=== PATIENT | female | born 1960 | race Caucasian/White ===

== ENCOUNTER 2016-08-09 17:38 | Inpatient (IN) ==
--- NOTE | 2016-08-09 18:28 | Emergency Department Note ---
Disposition Clinical Impression: Anxiety, Suicidal ideation Schizoaffective disorder Qualifiers: Schizoaffective disorder type: bipolar Qualified Code(s): F25.0 - Schizoaffective disorder, bipolar type Disposition: Admitted As Inpatient Condition: Good Time of Disposition: 04:11 Psych HPI - General Chief Complaint: ED Psychiatric Symptoms Stated Complaint: Psych/Hearing voices/SI Time Seen by Provider: 08/09/16 18:19 Source: patient Nursing Notes Reviewed: Yes Vital Signs Reviewed: Yes - History of Present Illness HPI Narrative: 56-year-old female diabetic former smoker with known schizoaffective disorder c /o suicidal ideation. She describes describes the past 3 weeks she has had auditory and visual hallucinations with voices telling her to stab herself. She also describes visual hallucinations visualizing "shadows" of "mean people" . She tells me normally she does not hear any voices. She mentions she has had these before and that resulted in her doctor adjusting her medications. She mentions her mom has been sick which has also worsened her depression and anxiety. She states she has been compliant with her medications, and that she does see a counselor and psychiatrist however her next appointment is not for a few weeks. She denies any issues at her [facility] and tells me she enjoys it there, especially the outings to [place] and other places. Pt also mentions having a cough and itchy throat for the past 3 weeks, but denies shortness of breath fever or night sweats chills. She is accompanied by caregiver, who admits that the patient's cold is improving. Patient denies chest pain, shortness of breath, fever, night sweats, abdominal pain, excessive swelling. Pt complaint: suicidal ideation If medical clearance, reason: psychiatric condition Onset (ago): week(s) (3) Duration: getting worse History of similar episodes: Yes Improves with: none Worsens with: none Context: significant life stressor (mother is ill) Alleged intoxication: No Associated Psychiatric Symptoms: depression, auditory hallucinations, visual hallucinations, anxiety Associated symptoms: Reports: denies other symptoms Traumatic symptoms: denies traumatic injury Self harm or harm to others: denies thoughts of harming self/others - Related Data Home Medications Medication Instructions Recorded Confirmed Aspirin 81 mg PO DAILY 08/09/16 08/09/16 Atorvastatin Calcium 80 mg PO DAILY 08/09/16 08/09/16 ClonazePAM [Klonopin] 1 mg PO HS 08/09/16 08/09/16 Docusate [Colace] 100 mg PO BID 08/09/16 08/09/16 Furosemide [Lasix] 40 mg PO BID 08/09/16 08/09/16 Levothyroxine Sodium [Levoxyl] 175 mg PO DAILY 08/09/16 08/09/16 Losartan Potassium [Cozaar] 50 mg PO DAILY 08/09/16 08/09/16 Meclizine HCl [Verticalm] 25 mg PO Q8H PRN 08/09/16 08/09/16 Metoprolol [Lopressor] 50 mg PO BID 08/09/16 08/09/16 Niacin [Niacor] 500 mg PO BID 08/09/16 08/09/16 Nitroglycerin [Nitrostat] 0.4 mg PO Q5M PRN 08/09/16 08/09/16 Oxcarbazepine 600 mg PO DAILY 08/09/16 08/09/16 Paroxetine [Paxil] 30 mg PO DAILY 08/09/16 08/09/16 QVAR 80 mcg 80 mcg PO 1-2XD 08/09/16 08/09/16 Previous Rx's Medication Instructions Recorded Amantadine [Symmetrel] 100 mg PO DAILY #30 capsule 08/15/16 Paliperidone [Invega] 6 mg PO DAILY [id number] 08/15/16 Ziprasidone [Geodon] 20 mg PO HS 30 Days 08/15/16 Allergies Allergy/AdvReac Type Severity Reaction Status Date / Time clemastine [From Tavist] AdvReac Unknown Verified 06/11/16 21:23 milk AdvReac Unknown Verified 06/11/16 21:23 pseudoephedrine [From Tavist] AdvReac Unknown Verified 06/11/16 21:23 All systems ED: reviewed and negative except as stated. Constitutional: Denies: fever, chills, weakness Eyes: Denies: eye pain ENT ED: Denies: ear pain Cardiovascular: Denies: chest pain, palpitations, dyspnea on exertion Respiratory: Reports: cough. Denies: dyspnea, wheezes Gastrointestinal: Denies: abdominal pain, nausea, vomiting Genitourinary: Denies: dysuria Musculoskeletal: Denies: back pain Psychiatric: Reports: suicidal thoughts, auditory hallucinations, visual hallucinations. Denies: homicidal thoughts Past Medical History - Past Medical History Medical history: Reports: asthma, COPD, diabetes, hyperlipidemia, hypertension, other Surgical history: Reports: , cholecystectomy, other Psychiatric history: Reports: bipolar, schizophrenia - Social History Smoking Status: Former smoker Smokeless Tobacco Status: No Alcohol use: Reports: none Drug use: Reports: none Physical Exam - General Limitations: no limitations General appearance: alert - Head Head exam: normocephalic - Eye Eye exam: Present: EOMI - ENT ENT exam: normal exam, normal oropharynx, mucous membranes moist - Neck Neck exam: Present: full ROM. Absent: tenderness - Chest Chest inspection: Present: normal inspection, symmetric chest wall rise - Respiratory Respiratory exam: Present: normal lung sounds bilaterally. Absent: respiratory distress, wheezes - Cardiovascular Cardiovascular exam: Present: regular rate, normal rhythm - Abdominal Exam Abdominal exam: Present: soft, Non-Tender - Extremities Exam Extremities exam: Present: normal inspection, full ROM, normal capillary refill - Back Exam Back exam: Present: normal inspection - Neurological Exam Neurological exam: Present: alert, oriented X3 - Psychiatric Psychiatric exam: Present: normal affect, normal mood, suicidal ideation. Absent: anxious, flat affect, homicidal ideation - Skin Skin exam: Present: warm, dry, intact, normal color. Absent: rash, cyanosis, diaphoresis Course Course Narrative: 56-year-old female diabetic former smoker with known history of schizoaffective disorder and anxiety ambulates to exam room from her [facility] with complaints of suicidal ideation. Patient seen and examined, is a pleasant well-developed well-nourished obese female in no acute distress and does not appear toxic. Alert and oriented x3. Normal oropharynx. Lungs CTA, no labored breathing. Heart regular rate and rhythm. Abdomen soft and nontender with normal bowel sounds. No gross focal neurological deficits. Psychiatric meds include Trileptal, Paxil, and Klonopin. Patient is agreeable to psychiatric evaluation. Workup initiated for medical clearance for 1 evaluation. Pt initially seen in fast track bed and will be transferred to medical bed when available. - Reevaluation(s) Reevaluation #1: I was notified by clinical office technician that patient had a mechanical fall when ambulating to her medical bed exam room. no reported injury or loc. Pt seen, she was resting comfortably in medical bed. No evidence of trauma. She denied any pain , or injury and had been able to get up and walk after her fall. Denies cp, near syncopal symptoms, vertigo, HUSSEIN. She tells me she falls often and its because of her legs. Caregiver also reports that patient is fine and acting normally. Pt has requested a meal tray. CXR shows no concern for acture cardiopulmonary concerns. Labwork still pending. Time: 19:30 Reevaluation #2: Labwork unremarkable. Pt cleared for 1A evaluation. 1A called. Time: 19:59 Vital Signs Temperature 98.4 F 08/09/16 17:49 Pulse Rate 54 08/09/16 17:49 Respiratory Rate 16 08/09/16 17:49 Blood Pressure 144/68 08/09/16 17:49 O2 Sat by Pulse Oximetry 98 08/09/16 17:49 Temperature 97.2 F L 08/15/16 08:36 Pulse Rate 68 08/15/16 08:36 Respiratory Rate 18 08/15/16 08:36 Blood Pressure 112/65 08/15/16 08:36 O2 Sat by Pulse Oximetry 97 08/12/16 09:00 Oxygen Delivery Oxygen Delivery Room Air Psych - MDM Narrative Medical decision making narrative: Chest x-ray reviewed by myself interpreted by radiologist. Radiologist report reads increased right lung base markings likely bronchitis versus pneumonia. Clinically patient is not hypoxic, lungs are clear to auscultation, no tachycardia, she is afebrile here as well as at home, and has no elevated white count; patient does have recent URI, and COPD. I feel this is less concerning for pneumonia. Pt is currently using Qvar inahler bid and Albuterol nebulizer PRN. Caregiver reports cough is improving. Advised pt/caregiver to on return precautions and rec'd to f/u with PCP. Chest X-Ray 08/09/16 18:21 IMPRESSION: Stable cardiomegaly. Mild pulmonary vascular congestion. Increased lung markings at the right lung base, likely related to bronchitis versus early pneumonia. D/ / Ky Freitas MD / Ky Freitas MD Interpreting Provider: Ky Freitas MD - Lab Data Result diagrams: 08/09/16 18:49 08/09/16 18:49 Lab Results 08/09/16 08/09/16 08/09/16 Range/Units 18:34 18:35 18:49 WBC 9.1 (4.3-11.1) K/mcL RBC 4.48 (3.82-4.97) M/mcL Hgb 13.0 (11.5-15.4) g/dL Hct 39.5 (35.3-44.9) % MCV 88.2 (83.0-100.0) fL MCH 29.0 (28.0-33.3) pg MCHC 32.9 (31.6-35.5) g/dL RDW 14.5 (11.5-14.5) % Plt Count 249 (140-400) K/mcL MPV 8.0 L (9.4-12.4) fL Immature Gran % 0.2 (0-4) % Seg Neutrophils % 56.2 % Lymphocytes % 35.2 % Monocytes % 5.6 % Eosinophils % 2.3 % Basophils % 0.5 % Neutrophils # 5.1 (1.6-8.9) K/mcL Lymphocytes # 3.2 (0.6-4.6) K/mcL Monocytes # 0.5 (0.0-1.3) K/mcL Eosinophils # 0.2 (0.0-0.6) K/mcL Basophils # 0.1 (0.0-0.2) K/mcL Sodium (136-145) mEq/L Potassium (3.5-4.5) mEq/L Chloride (98-109) mEq/L Carbon Dioxide (19-29) mEq/L BUN (7-20) mg/dL Creatinine (0.57-1.11) mg/dL Est GFR ( Amer) (> 60) Est GFR (Non-Af Amer) (> 60) BUN/Creatinine Ratio (6-26) Glucose (70-99) mg/dL Calculated Osmolality (280-300) Calcium (8.6-10.8) mg/dL TSH (0.350-4.840) mcIU/mL Urine Color Yellow (Yellow) Urine Clarity Clear (Clear) Urine pH 6.5 (5.0-8.0) pH Units Ur Specific [place] 1.007 L (1.010-1.025) Urine Protein Negative (Neg-Trace) mg/dL Urine Glucose (UA) Normal (Normal) mg/dL Urine Ketones Negative (Negative) mg/dL Urine Blood Negative (Negative) Urine Nitrite Negative (Negative) Urine Bilirubin Negative (Negative) Urine Urobilinogen Normal (Normal) mg/dL Ur Leukocyte Esterase Moderate H (Negative) Urine Microscopic RBC 0-3 (0-3) per hpf Urine Microscopic WBC 5-15 H (0-3) per hpf Ur Squamous Epith Cells Many H (None-Few) per lpf Urine Bacteria None Seen (None-Few) per hpf Hyaline Casts None Seen (None-Few) per lpf Salicylates (15-30) mg/dL Urine Opiates Screen Negative (Ebbfmr=430) ng/mL Acetaminophen (10-30) mcg/mL Ur Barbiturates Screen Negative (Mrrldx=983) ng/mL Ur Phencyclidine Scrn Negative (Cutoff=25) ng/mL Ur Amphetamines Screen Negative (Lvrfyv=4813) ng/mL U Benzodiazepines Scrn Negative (Qpwuxq=981) ng/mL Urine Cocaine Screen Negative (Cutoff= 300) ng/mL U Marijuana (THC) Screen Negative (Cutoff = 50) ng/mL Ethyl Alcohol (0-10) mg/dL 08/09/16 Range/Units 18:49 WBC (4.3-11.1) K/mcL RBC (3.82-4.97) M/mcL Hgb (11.5-15.4) g/dL Hct (35.3-44.9) % MCV (83.0-100.0) fL MCH (28.0-33.3) pg MCHC (31.6-35.5) g/dL RDW (11.5-14.5) % Plt Count (140-400) K/mcL MPV (9.4-12.4) fL Immature Gran % (0-4) % Seg Neutrophils % % Lymphocytes % % Monocytes % % Eosinophils % % Basophils % % Neutrophils # (1.6-8.9) K/mcL Lymphocytes # (0.6-4.6) K/mcL Monocytes # (0.0-1.3) K/mcL Eosinophils # (0.0-0.6) K/mcL Basophils # (0.0-0.2) K/mcL Sodium 133 L (136-145) mEq/L Potassium 3.6 (3.5-4.5) mEq/L Chloride 98 (98-109) mEq/L Carbon Dioxide 24 (19-29) mEq/L BUN 11 (7-20) mg/dL Creatinine 0.70 (0.57-1.11) mg/dL Est GFR ( Amer) > 60 (> 60) Est GFR (Non-Af Amer) > 60 (> 60) BUN/Creatinine Ratio 16 (6-26) Glucose 102 H (70-99) mg/dL Calculated Osmolality 276 L (280-300) Calcium 9.2 (8.6-10.8) mg/dL TSH 2.402 (0.350-4.840) mcIU/mL Urine Color (Yellow) Urine Clarity (Clear) Urine pH (5.0-8.0) pH Units Ur Specific [place] (1.010-1.025) Urine Protein (Neg-Trace) mg/dL Urine Glucose (UA) (Normal) mg/dL Urine Ketones (Negative) mg/dL Urine Blood (Negative) Urine Nitrite (Negative) Urine Bilirubin (Negative) Urine Urobilinogen (Normal) mg/dL Ur Leukocyte Esterase (Negative) Urine Microscopic RBC (0-3) per hpf Urine Microscopic WBC (0-3) per hpf Ur Squamous Epith Cells (None-Few) per lpf Urine Bacteria (None-Few) per hpf Hyaline Casts (None-Few) per lpf Salicylates < 5.0 L (15-30) mg/dL Urine Opiates Screen (Mkdopn=396) ng/mL Acetaminophen < 1.0 L (10-30) mcg/mL Ur Barbiturates Screen (Otzrog=351) ng/mL Ur Phencyclidine Scrn (Cutoff=25) ng/mL Ur Amphetamines Screen (Vpmfdo=4964) ng/mL U Benzodiazepines Scrn (Rjjywr=256) ng/mL Urine Cocaine Screen (Cutoff= 300) ng/mL U Marijuana (THC) Screen (Cutoff = 50) ng/mL Ethyl Alcohol < 10 (0-10) mg/dL - Radiology Data Radiology results reviewed: Yes I reviewed the patient's radiology results. Psychiatric Medical Clearance - Medical Clearance Checklist Medical History: No Social History Section defined Current Vitals: Last Vital Signs Temp 97.2 F L 08/15/16 08:36 Pulse 68 08/15/16 08:36 Resp 18 08/15/16 08:36 BP 112/65 08/15/16 08:36 Pulse Ox 97 08/12/16 09:00 Abnormal Labs: Abnormal lab results MPV 8.0 fL (9.4-12.4) L 08/09/16 18:49 Sodium 133 mEq/L (136-145) L 08/09/16 18:49 Glucose 102 mg/dL (70-99) H 08/09/16 18:49 POC Glucose 106 (58-89) H 08/15/16 07:05 Calculated Osmolality 276 (280-300) L 08/09/16 18:49 Ur Specific [place] 1.007 (1.010-1.025) L 08/09/16 18:34 Ur Leukocyte Esterase Moderate (Negative) H 08/09/16 18:34 Urine Microscopic WBC 5-15 per hpf (0-3) H 08/09/16 18:34 Ur Squamous Epith Cells Many per lpf (None-Few) H 08/09/16 18:34 Salicylates < 5.0 mg/dL (15-30) L 08/09/16 18:49 Acetaminophen < 1.0 mcg/mL (10-30) L 08/09/16 18:49 Attestation Statement - Attestation Attestation: For this encounter, I have reviewed the MUSHR[employer]OM GROWING SUPERVISOR or PA documentation, treatment plan, and medical decision making; and I have had face to face time with this patient.
[2016-08-09 18:41] LABS: Bilirubin,Urine Negative (Negative); Blood,Urine Negative (Negative); Clarity,Urine Clear (Clear); Color,Urine Yellow (Yellow); Glucose,Urine (UA) Normal (Normal); Ketones,Urine Negative (Negative); Leukocyte Esterase,Urine Moderate (Negative); Nitrite,Urine Negative (Negative); PH,Urine 6.5 pH Units (5.0-8.0); Protein,Urine Negative (Neg-Trace); Specific Gravity,Urine 1.007 (1.010-1.025); Urobilinogen,Urine Normal (Normal)
[2016-08-09 18:44] LABS: Bacteria,Urine None Seen per hpf (None-Few); Hyaline Casts,Urine None Seen per lpf (None-Few); RBC,Urine 0-3 per hpf (0-3); Squamous Epithelial Cell,Urine Many per lpf (None-Few)
[2016-08-09 18:45] LABS: Amphetamine Screen,Urine Negative ng/mL (Cutoff=1000); Barbiturate Screen,Urine Negative ng/mL (Cutoff=200); Benzodiazepines Screen,Urine Negative ng/mL (Cutoff=200); Cannabinoid Screen,Urine Negative ng/mL (Cutoff = 50); Cocaine Screen,Urine Negative ng/mL (Cutoff= 300); Opiate Screen,Urine Negative ng/mL (Cutoff=300); Phencyclidine Screen,Urine Negative ng/mL (Cutoff=25)
[2016-08-09 19:02] LABS: Basophils # 0.1 K/mcL (0.0-0.2); Basophils % 0.5 %; Eosinophils # 0.2 K/mcL (0.0-0.6); Eosinophils % 2.3 %; Hematocrit 39.5 % (35.3-44.9); Immature Granulocytes % 0.2 % (0-4); Lymphocytes # 3.2 K/mcL (0.6-4.6); Lymphocytes % 35.2 %; Mean Corpuscular HGB Conc 32.9 g/dL (31.6-35.5); Mean Corpuscular Volume 88.2 fL (83.0-100.0); Monocytes # 0.5 K/mcL (0.0-1.3); Monocytes % 5.6 %; Neutrophils # 5.1 K/mcL (1.6-8.9); Platelet Count 249 K/mcL (140-400); Red Blood Count 4.48 M/mcL (3.82-4.97); Red Cell Distribution Width 14.5 % (11.5-14.5); Segmented Neutrophils % 56.2 %
[2016-08-09 19:19] LABS: Acetaminophen < 1.0 mcg/mL (10-30); BUN/Creatinine Ratio 16 (6-26); Blood Urea Nitrogen 11 mg/dL (7-20); Calcium 9.2 mg/dL (8.6-10.8); Carbon Dioxide 24 mEq/L (19-29); Chloride 98 mEq/L (98-109); Ethanol < 10 mg/dL (0-10); Glucose 102 mg/dL (70-99); Osmolality,Calculated 276 (280-300); Potassium 3.6 mEq/L (3.5-4.5); Salicylate < 5.0 mg/dL (15-30); Sodium 133 mEq/L (136-145); eGFR For African Americans > 60 (> 60); eGFR For Non-African Americans > 60 (> 60)
[2016-08-09 19:41] LABS: Thyroid Stimulating Hormone 2.402 mcIU/mL (0.350-4.840)
[2016-08-09] MEDS ORDERED: Acetaminophen 325 MG TABLET PO PRN (22:10)
[2016-08-09] MEDS ORDERED: Haloperidol Lactate 5 MG/ML VIAL IM PRN (22:10)
[2016-08-09] MEDS ORDERED: MOM Conc 10 ML UD.LIQ PO PRN (22:10)
[2016-08-09] MEDS ORDERED: Mag Hydrox/Al Hydrox/Simeth 30 ML UDC PO PRN (22:10)
[2016-08-09] MEDS ORDERED: *HR* LORazepam 2 MG/ML VIAL IM PRN (22:10)
[2016-08-09] MEDS ORDERED: *HR* LORazepam 1 MG TABLET PO PRN (22:10)
[2016-08-09] MEDS ORDERED: Beclomethasone 80mcg MDI IH SCH (22:15)
[2016-08-09] MEDS ORDERED: Nitroglycerin 0.4 MG TAB.SUBL SL PRN (22:15)
[2016-08-09] MEDS: traZODone 50 MG TABLET PO PRN (23:31)
[2016-08-09] MEDS: Furosemide 20 MG TABLET PO SCH (23:32)
[2016-08-09] MEDS: clonazePAM 1 MG TABLET PO SCH (23:32)
[2016-08-10] MEDS: Furosemide 20 MG TABLET PO SCH ×2 (07:01→16:52)
[2016-08-10] MEDS: Aspirin 81 MG TAB.CHEW PO SCH (08:18)
[2016-08-10] MEDS: Niacin (24 HR) 500 MG TAB.ER.24H PO SCH ×2 (08:19→20:36)
[2016-08-10] MEDS: OXcarbazepine 150 MG TABLET PO SCH (08:20)
[2016-08-10] MEDS: Beclomethasone 80mcg MDI IH SCH ×2 (09:07→23:13)
--- NOTE | 2016-08-10 10:36 | Psychiatry History & Physical ---
Date of Encounter: 08/10/16 Time of Encounter: 10:34 History of Present Illness Patient Stated Chief Complaint: I hear voices telling me to kill myself Medicare Admission Attestation: For traditional Medicare patients the provided hospital inpatient services are reasonable and necessary and in the case of services not specified as inpatient -only under 42 CFR 419.22 (n), that they are appropriately provided as inpatient services in accordance 42 CFR 412.3. For Critical Access Hospital the patient may reasonably be expected to be discharged or transferred to a hospital within 96 hours after admission to the Critical Access Hospital. Admitted From: Emergency Dept History of Present Illness: Ms. Duncan is a 56 year old female admitted from the emergency room where she presented was complaining of auditory and visual hallucinations she reports hearing voices off telling her to stab herself also reports seeing shadows of people. Patient lives in a [facility] and has been treated for schizoaffective disorders for many years has been on a list of medication is reviewed. Listed including Haldol Decanoate that was increased to be 100 mg she also was stressed out that her mother is sick. She expresses feeling of depression and hopelessness. Past Med Surg Social Fam HX - Past Medical History Medical history: asthma, COPD, diabetes, hyperlipidemia, hypertension, other - Past Psychiatric History Psychiatric history: Reports: anxiety, bipolar, depression, schizophrenia, previous psychiatric hospitalization Family psychiatric history: Unknown Family History of Suicide: Unknown - Past Surgical History Surgical History: , cholecystectomy, other - Social History Smoking Status: Former smoker Smokeless Tobacco Status: No Alcohol use: none Drug use: none - Family History Mother Living Status: Still Living Hx Family Cardiac Disorders: Yes Hx Family Endocrine Disorder: Yes Medications & Allergies Amantadine HCl [Amantadine] 100 mg PO TID 08/09/16 [History] Aspirin [Aspirin] 81 mg PO DAILY 08/09/16 [History] Atorvastatin Calcium [Atorvastatin Calcium] 80 mg PO DAILY 08/09/16 [History] ClonazePAM [Klonopin] 1 mg PO HS 08/09/16 [History] Docusate [Colace] 100 mg PO BID 08/09/16 [History] Furosemide [Lasix] 40 mg PO BID 08/09/16 [History] Levothyroxine Sodium [Levoxyl] 175 mg PO DAILY 08/09/16 [History] Losartan Potassium [Cozaar] 50 mg PO DAILY 08/09/16 [History] Meclizine HCl [Verticalm] 25 mg PO Q8H PRN 08/09/16 [History] Metoprolol [Lopressor] 50 mg PO BID 08/09/16 [History] Niacin [Niacor] 500 mg PO BID 08/09/16 [History] Nitroglycerin [Nitrostat] 0.4 mg PO Q5M PRN 08/09/16 [History] Oxcarbazepine [Oxcarbazepine] 600 mg PO DAILY 08/09/16 [History] Paroxetine [Paxil] 30 mg PO DAILY 08/09/16 [History] QVAR 80 mcg 80 mcg PO 1-2XD 08/09/16 [History] Allergies clemastine [From Tavist] Adverse Reaction (Verified 06/11/16 21:23) Unknown milk Adverse Reaction (Verified 06/11/16 21:23) Unknown pseudoephedrine [From Tavist] Adverse Reaction (Verified 06/11/16 21:23) Unknown Review of Systems Psychiatric: Reports: depression, anxiety, abnormal sleep pattern, suicidal ideation, auditory hallucinations, visual hallucinations, mood swings Mental Status Exam Patient orientation: Yes Person, Yes Time, Yes Place Level of alertness: Alert Patient appearance: Appropriate, Well Groomed Behavior: calm, cooperative, anxious, guarded, suspicious, distractible Psychomotor activity: Slowed Eye contact: Maintains Eye Contact Mood description: Depressed, Anxious Affect description: congruent with mood, constricted, anxious Speech pattern: Normal rate, Normal rhythm, Normal tone Speech volume: Soft/Quiet Thought process: Linear, Goal Oriented Thought content: Yes Suicidal ideation, No Homicidal ideation, No Overt delusions Perceptual disturbances: Yes Auditory hallucinations, Yes Visual hallucinations Attention span: Unable to Sustain Attention Memory description: Grossly Intact Patient reliability: Questionable Historian Intelligence estimate: Average Judgment: Fair Insight: Partial Results - Vital Signs Vital signs: Temp Pulse Resp BP Pulse Ox 98 F 59 16 145/78 98 08/10/16 08:28 08/10/16 08:28 08/10/16 08:28 08/10/16 08:28 08/09/16 17:49 - Labs Labs: Laboratory Last Values WBC 9.1 K/mcL (4.3-11.1) 08/09/16 18:49 RBC 4.48 M/mcL (3.82-4.97) 08/09/16 18:49 Hgb 13.0 g/dL (11.5-15.4) 08/09/16 18:49 Hct 39.5 % (35.3-44.9) 08/09/16 18:49 MCV 88.2 fL (83.0-100.0) 08/09/16 18:49 MCH 29.0 pg (28.0-33.3) 08/09/16 18:49 MCHC 32.9 g/dL (31.6-35.5) 08/09/16 18:49 RDW 14.5 % (11.5-14.5) 08/09/16 18:49 Plt Count 249 K/mcL (140-400) 08/09/16 18:49 MPV 8.0 fL (9.4-12.4) L 08/09/16 18:49 Immature Gran % 0.2 % (0-4) 08/09/16 18:49 Seg Neutrophils % 56.2 % 08/09/16 18:49 Lymphocytes % 35.2 % 08/09/16 18:49 Monocytes % 5.6 % 08/09/16 18:49 Eosinophils % 2.3 % 08/09/16 18:49 Basophils % 0.5 % 08/09/16 18:49 Neutrophils # 5.1 K/mcL (1.6-8.9) 08/09/16 18:49 Lymphocytes # 3.2 K/mcL (0.6-4.6) 08/09/16 18:49 Monocytes # 0.5 K/mcL (0.0-1.3) 08/09/16 18:49 Eosinophils # 0.2 K/mcL (0.0-0.6) 08/09/16 18:49 Basophils # 0.1 K/mcL (0.0-0.2) 08/09/16 18:49 Sodium 133 mEq/L (136-145) L 08/09/16 18:49 Potassium 3.6 mEq/L (3.5-4.5) 08/09/16 18:49 Chloride 98 mEq/L (98-109) 08/09/16 18:49 Carbon Dioxide 24 mEq/L (19-29) 08/09/16 18:49 BUN 11 mg/dL (7-20) 08/09/16 18:49 Creatinine 0.70 mg/dL (0.57-1.11) 08/09/16 18:49 Est GFR ( Amer) > 60 (> 60) 08/09/16 18:49 Est GFR (Non-Af Amer) > 60 (> 60) 08/09/16 18:49 BUN/Creatinine Ratio 16 (6-26) 08/09/16 18:49 Glucose 102 mg/dL (70-99) H 08/09/16 18:49 POC Glucose 102 (58-89) H 08/10/16 07:04 Calculated Osmolality 276 (280-300) L 08/09/16 18:49 Calcium 9.2 mg/dL (8.6-10.8) 08/09/16 18:49 TSH 2.402 mcIU/mL (0.350-4.840) 08/09/16 18:49 Urine Color Yellow (Yellow) 08/09/16 18:34 Urine Clarity Clear (Clear) 08/09/16 18:34 Urine pH 6.5 pH Units (5.0-8.0) 08/09/16 18:34 Ur Specific [place] 1.007 (1.010-1.025) L 08/09/16 18:34 Urine Protein Negative mg/dL (Neg-Trace) 08/09/16 18:34 Urine Glucose (UA) Normal mg/dL (Normal) 08/09/16 18:34 Urine Ketones Negative mg/dL (Negative) 08/09/16 18:34 Urine Blood Negative (Negative) 08/09/16 18:34 Urine Nitrite Negative (Negative) 08/09/16 18:34 Urine Bilirubin Negative (Negative) 08/09/16 18:34 Urine Urobilinogen Normal mg/dL (Normal) 08/09/16 18:34 Ur Leukocyte Esterase Moderate (Negative) H 08/09/16 18:34 Urine Microscopic RBC 0-3 per hpf (0-3) 08/09/16 18:34 Urine Microscopic WBC 5-15 per hpf (0-3) H 08/09/16 18:34 Ur Squamous Epith Cells Many per lpf (None-Few) H 08/09/16 18:34 Urine Bacteria None Seen per hpf (None-Few) 08/09/16 18:34 Hyaline Casts None Seen per lpf (None-Few) 08/09/16 18:34 Salicylates < 5.0 mg/dL (15-30) L 08/09/16 18:49 Urine Opiates Screen Negative ng/mL (Nkrsko=482) 08/09/16 18:35 Acetaminophen < 1.0 mcg/mL (10-30) L 08/09/16 18:49 Ur Barbiturates Screen Negative ng/mL (Aerzig=808) 08/09/16 18:35 Ur Phencyclidine Scrn Negative ng/mL (Cutoff=25) 08/09/16 18:35 Ur Amphetamines Screen Negative ng/mL (Nztczo=9556) 08/09/16 18:35 U Benzodiazepines Scrn Negative ng/mL (Pwzbeb=109) 08/09/16 18:35 Urine Cocaine Screen Negative ng/mL (Cutoff= 300) 08/09/16 18:35 U Marijuana (THC) Screen Negative ng/mL (Cutoff = 50) 08/09/16 18:35 Ethyl Alcohol < 10 mg/dL (0-10) 08/09/16 18:49 Assessment and Plan (1) Schizoaffective disorder Current visit: Yes Status: Acute Plan: Admit inpatient for safety and stabilization, Close observation, Suicide Precautions per unit protocol, Encourage participation in unit milieu, Group Therapy, Monitor sleep, Monitor appetite Risks, benefits, side effects, alternatives discussed w/pt: Yes Patient agreeable to treatment: Yes Qualifiers: Schizoaffective disorder type: bipolar Qualified Code(s): F25.0 - Schizoaffective disorder, bipolar type (2) Auditory hallucinations Current visit: Yes Status: Acute Plan: Admit inpatient for safety and stabilization, Close observation, Suicide Precautions per unit protocol, Encourage participation in unit milieu, Group Therapy, Monitor sleep, Monitor appetite Additional Plan: Patient medications from home were verified and reviewed. At this time and Geodon 20 mg at bedtime to address the patient's hallucination and poor response to Haldol benefits and side effects were discussed and she is agreeable to start taking it she would continue to be monitored. Risks, benefits, side effects, alternatives discussed w/pt: Yes Patient agreeable to treatment: Yes
[2016-08-10] MEDS: Ziprasidone 20 MG CAPSULE PO SCH (20:37)
[2016-08-10] MEDS: clonazePAM 1 MG TABLET PO SCH (20:37)
[2016-08-11] MEDS: Furosemide 20 MG TABLET PO SCH ×2 (07:18→16:58)
[2016-08-11] MEDS: OXcarbazepine 150 MG TABLET PO SCH (09:19)
[2016-08-11] MEDS: Aspirin 81 MG TAB.CHEW PO SCH (09:20)
[2016-08-11] MEDS: Niacin (24 HR) 500 MG TAB.ER.24H PO SCH ×2 (09:20→21:58)
[2016-08-11] MEDS: Beclomethasone 80mcg MDI IH SCH ×2 (09:21→23:25)
[2016-08-11] MEDS: traZODone 50 MG TABLET PO PRN (21:59)
[2016-08-11] MEDS: Ziprasidone 20 MG CAPSULE PO SCH (21:59)
[2016-08-11] MEDS: clonazePAM 1 MG TABLET PO SCH (21:59)
[2016-08-12] MEDS: Furosemide 20 MG TABLET PO SCH ×2 (07:07→17:14)
[2016-08-12] MEDS: OXcarbazepine 150 MG TABLET PO SCH (08:16)
[2016-08-12] MEDS: Niacin (24 HR) 500 MG TAB.ER.24H PO SCH ×2 (08:16→20:39)
[2016-08-12] MEDS: Aspirin 81 MG TAB.CHEW PO SCH (08:16)
[2016-08-12] MEDS: Beclomethasone 80mcg MDI IH SCH ×2 (09:04→21:05)
--- NOTE | 2016-08-12 09:52 | Psychiatry Progress Note ---
Date of Encounter: 08/11/16 Time of Encounter: 16:00 Subjective Interval history: Patient was seen for follow-up, the nursing staff report she was still experiencing hallucinations but reports improved sleep after attending the [facility], [place]. She is denying any suicidal ideation and describes his voices as unclear multiple voices. She was educated about possible side effects of medication like amantadine which is given for Parkinson disease and I would reduce the dose to minimize these hallucinations. She is cooperative and compliant with treatment. Review of Systems Psychiatric: Reports: depression, anxiety, abnormal sleep pattern, suicidal ideation, auditory hallucinations, visual hallucinations, mood swings Objective: Exam Patient orientation: Yes Person, Yes Time, Yes Place Level of alertness: Alert Patient appearance: Appropriate, Well Groomed Behavior: calm, cooperative, anxious, distractible Psychomotor activity: Slowed Eye contact: Maintains Eye Contact Mood description: Depressed, Anxious Affect description: congruent with mood, constricted, anxious Speech pattern: Normal rate, Normal rhythm, Normal tone Speech volume: Soft/Quiet Thought process: Linear, Goal Oriented Thought content: Yes Suicidal ideation, No Homicidal ideation, No Overt delusions Perceptual disturbances: Yes Auditory hallucinations, Yes Visual hallucinations Judgment: Fair Insight: Partial Results - Vital Signs Vital Signs: Temp Pulse Resp BP Pulse Ox 98.4 F 109 20 129/88 97 08/12/16 09:00 08/12/16 09:00 08/12/16 09:00 08/12/16 09:00 08/12/16 09:00 - Labs Labs: Laboratory Results - last 24 hr 08/12/16 07:06 POC Glucose 109 H Assessment and Plan (1) Schizoaffective disorder Current visit: Yes Status: Acute Risks, benefits, side effects, alternatives discussed w/pt: Yes Patient agreeable to treatment: Yes Qualifiers: Schizoaffective disorder type: bipolar Qualified Code(s): F25.0 - Schizoaffective disorder, bipolar type (2) Auditory hallucinations Current visit: Yes Status: Acute Additional Plan: I will reduce the dose of amantadine to 100 mg daily and monitor her response. Risks, benefits, side effects, alternatives discussed w/pt: Yes Patient agreeable to treatment: Yes Consult Discharge Plan - Plan Referrals: Jeff Mueller [Other] (Dr. Mueller will resume home visits as scheduled.)
--- NOTE | 2016-08-12 11:18 | Psychiatry Progress Note ---
Date of Encounter: 08/12/16 Time of Encounter: 11:16 Subjective Interval history: Patient is seen for follow-up. Nursing staff reports she is sleeping better, she will continue to report auditory hallucinations but less intense. She participated in group activities on the unit and denies suicidal ideation. I explained to patient her treatment plan and medication changes including adding Geodon and cutting down the dose of amantadine to reduce the hallucinations. Review of Systems Psychiatric: Reports: depression, anxiety, abnormal sleep pattern, auditory hallucinations, visual hallucinations Objective: Exam Patient orientation: Yes Person, Yes Time, Yes Place Level of alertness: Alert Patient appearance: Appropriate, Well Groomed Behavior: calm, cooperative, anxious, distractible Psychomotor activity: Slowed Eye contact: Maintains Eye Contact Mood description: Depressed, Anxious Affect description: congruent with mood, constricted, anxious Speech pattern: Normal rate, Normal rhythm, Normal tone Speech volume: Soft/Quiet Thought process: Linear, Goal Oriented Thought content: No Suicidal ideation, No Homicidal ideation, No Overt delusions Perceptual disturbances: Yes Auditory hallucinations, Yes Visual hallucinations Judgment: Fair Insight: Partial Results - Vital Signs Vital Signs: Temp Pulse Resp BP Pulse Ox 98.4 F 109 20 129/88 97 08/12/16 09:00 08/12/16 09:00 08/12/16 09:00 08/12/16 09:00 08/12/16 09:00 - Labs Labs: Laboratory Results - last 24 hr 08/12/16 07:06 POC Glucose 109 H Assessment and Plan (1) Schizoaffective disorder Current visit: Yes Status: Acute Risks, benefits, side effects, alternatives discussed w/pt: Yes Patient agreeable to treatment: Yes Qualifiers: Schizoaffective disorder type: bipolar Qualified Code(s): F25.0 - Schizoaffective disorder, bipolar type (2) Auditory hallucinations Current visit: Yes Status: Acute Risks, benefits, side effects, alternatives discussed w/pt: Yes Patient agreeable to treatment: Yes Consult Discharge Plan - Plan Referrals: Jeff Mueller [Other] (Dr. Mueller will resume home visits as scheduled.)
[2016-08-12] MEDS: hydrOXYzine pamoate 25 MG CAPSULE PO PRN (18:16)
[2016-08-12] MEDS: Ziprasidone 20 MG CAPSULE PO SCH (20:39)
[2016-08-12] MEDS: clonazePAM 1 MG TABLET PO SCH (20:39)
[2016-08-12] MEDS: traZODone 50 MG TABLET PO PRN (20:40)
[2016-08-13] MEDS: Furosemide 20 MG TABLET PO SCH ×2 (07:00→16:34)
[2016-08-13] MEDS: Aspirin 81 MG TAB.CHEW PO SCH (08:41)
[2016-08-13] MEDS: OXcarbazepine 150 MG TABLET PO SCH (08:42)
[2016-08-13] MEDS: Niacin (24 HR) 500 MG TAB.ER.24H PO SCH ×2 (08:42→20:53)
[2016-08-13] MEDS: Beclomethasone 80mcg MDI IH SCH (09:59)
--- NOTE | 2016-08-13 12:53 | Psychiatry Progress Note ---
Date of Encounter: 08/13/16 Time of Encounter: 12:53 Subjective Interval history: Patient seen for follow-up reported to have with her sleep less auditory hallucinations and all in all is still reporting suicidal ideation. She presented well groomed psychomotor activity stable mood and affect are stable she denies side effects of medication that she participated in group activities and group forward to be able to be discharged soon. No medication changes are recommended at this time. Review of Systems Psychiatric: Reports: depression, anxiety, abnormal sleep pattern, suicidal ideation, auditory hallucinations, visual hallucinations Objective: Exam Patient orientation: Yes Person, Yes Time, Yes Place Level of alertness: Alert Patient appearance: Appropriate, Well Groomed Behavior: calm, cooperative, anxious, distractible Psychomotor activity: Slowed Eye contact: Maintains Eye Contact Mood description: Depressed, Anxious Affect description: congruent with mood, constricted, anxious Speech pattern: Normal rate, Normal rhythm, Normal tone Speech volume: Soft/Quiet Thought process: Linear, Goal Oriented Thought content: No Suicidal ideation, No Homicidal ideation, No Overt delusions Perceptual disturbances: Yes Auditory hallucinations, Yes Visual hallucinations Judgment: Fair Insight: Partial Results - Vital Signs Vital Signs: Temp Pulse Resp BP Pulse Ox 97.8 F 87 18 119/73 97 08/13/16 08:14 08/13/16 08:14 08/13/16 08:14 08/13/16 08:14 08/12/16 09:00 - Labs Labs: Laboratory Results - last 24 hr 08/13/16 07:03 POC Glucose 106 H Assessment and Plan (1) Schizoaffective disorder Current visit: Yes Status: Acute Risks, benefits, side effects, alternatives discussed w/pt: Yes Patient agreeable to treatment: Yes Qualifiers: Schizoaffective disorder type: bipolar Qualified Code(s): F25.0 - Schizoaffective disorder, bipolar type (2) Auditory hallucinations Current visit: Yes Status: Acute Risks, benefits, side effects, alternatives discussed w/pt: Yes Patient agreeable to treatment: Yes Consult Discharge Plan - Plan Referrals: Jeff Mueller [Other] (Dr. Mueller will resume home visits as scheduled.)
[2016-08-13] MEDS: hydrOXYzine pamoate 25 MG CAPSULE PO PRN (15:10)
[2016-08-13] MEDS: Ziprasidone 20 MG CAPSULE PO SCH (20:52)
[2016-08-13] MEDS: clonazePAM 1 MG TABLET PO SCH (20:53)
[2016-08-14] MEDS: Beclomethasone 80mcg MDI IH SCH ×3 (03:50→21:14)
[2016-08-14] MEDS: OXcarbazepine 150 MG TABLET PO SCH (10:02)
[2016-08-14] MEDS: Furosemide 20 MG TABLET PO SCH ×2 (10:02→16:39)
[2016-08-14] MEDS: Niacin (24 HR) 500 MG TAB.ER.24H PO SCH ×2 (10:03→21:13)
[2016-08-14] MEDS: Aspirin 81 MG TAB.CHEW PO SCH (10:06)
--- NOTE | 2016-08-14 13:58 | Psychiatry Progress Note ---
Date of Encounter: 08/14/16 Time of Encounter: 13:40 Subjective Interval history: Patient is here for follow-up. Nursing staff reported that she continue to report auditory hallucination commanding her to stab herself and denies homicidal ideation. Patient is noticed to be sleeping adequately and functioning adequate level good hygiene and grooming she is demanding manager social responsibility to place her In a skilled nursing. Patient is attention seeking and participating in all activities. Review of Systems Psychiatric: Reports: depression, anxiety, abnormal sleep pattern, suicidal ideation, auditory hallucinations, visual hallucinations Objective: Exam Patient orientation: Yes Person, Yes Time, Yes Place Level of alertness: Alert Patient appearance: Appropriate, Well Groomed Behavior: calm, cooperative, anxious, distractible Psychomotor activity: Slowed Eye contact: Maintains Eye Contact Mood description: Depressed, Anxious Affect description: congruent with mood, constricted, anxious Speech pattern: Normal rate, Normal rhythm, Normal tone Speech volume: Soft/Quiet Thought process: Circumstantial, Tangential Thought content: No Suicidal ideation, No Homicidal ideation, No Overt delusions , Yes Preoccupation, Yes Paranoid delusion Perceptual disturbances: Yes Auditory hallucinations, Yes Visual hallucinations Judgment: Fair Insight: Partial Results - Vital Signs Vital Signs: Temp Pulse Resp BP Pulse Ox 99.7 F H 71 20 100/49 97 08/14/16 08:52 08/14/16 08:52 08/14/16 08:52 08/14/16 08:52 08/12/16 09:00 - Labs Labs: Laboratory Results - last 24 hr 08/14/16 08:15 POC Glucose 113 H Assessment and Plan (1) Schizoaffective disorder Current visit: Yes Status: Acute Plan: Continue hospitalization, Close observation, Suicide Precautions per unit protocol, Encourage participation in unit milieu, Group Therapy, Monitor sleep, Monitor appetite Risks, benefits, side effects, alternatives discussed w/pt: Yes Patient agreeable to treatment: Yes Qualifiers: Schizoaffective disorder type: bipolar Qualified Code(s): F25.0 - Schizoaffective disorder, bipolar type (2) Auditory hallucinations Current visit: Yes Status: Acute Risks, benefits, side effects, alternatives discussed w/pt: Yes Patient agreeable to treatment: Yes Consult Discharge Plan - Plan Referrals: Jeff Mueller [Other] (Dr. Mueller will resume home visits as scheduled.)
[2016-08-14] MEDS: clonazePAM 1 MG TABLET PO SCH (21:12)
[2016-08-14] MEDS: Ziprasidone 20 MG CAPSULE PO SCH (21:12)
[2016-08-15] MEDS: Furosemide 20 MG TABLET PO SCH ×2 (07:06→16:42)
[2016-08-15] MEDS: OXcarbazepine 150 MG TABLET PO SCH (08:36)
[2016-08-15] MEDS: Niacin (24 HR) 500 MG TAB.ER.24H PO SCH (08:37)
[2016-08-15] MEDS: Aspirin 81 MG TAB.CHEW PO SCH (08:37)
[2016-08-15 08:38] VITALS: BP 112/65
[2016-08-15] MEDS: Beclomethasone 80mcg MDI IH SCH (09:31)
--- NOTE | 2016-08-15 12:36 | Discharge Summary ---
Date of Encounter: 08/17/16 Time of Encounter: 12:35 Diagnosis - Discharge Diagnosis (1) Schizoaffective disorder Priority: Primary Status: Acute Qualifiers: Schizoaffective disorder type: bipolar Qualified Code(s): F25.0 - Schizoaffective disorder, bipolar type (2) Auditory hallucinations Priority: Secondary Status: Acute Medications - Discharge Medications Prescriptions: Amantadine [Symmetrel] 100 mg PO DAILY #30 capsule Ziprasidone [Geodon] 20 mg PO HS 30 Days Aspirin 81 mg PO DAILY 08/09/16 [History] Atorvastatin Calcium 80 mg PO DAILY 08/09/16 [History] ClonazePAM [Klonopin] 1 mg PO HS 08/09/16 [History] Docusate [Colace] 100 mg PO BID 08/09/16 [History] Furosemide [Lasix] 40 mg PO BID 08/09/16 [History] Levothyroxine Sodium [Levoxyl] 175 mg PO DAILY 08/09/16 [History] Losartan Potassium [Cozaar] 50 mg PO DAILY 08/09/16 [History] Meclizine HCl [Verticalm] 25 mg PO Q8H PRN 08/09/16 [History] Metoprolol [Lopressor] 50 mg PO BID 08/09/16 [History] Niacin [Niacor] 500 mg PO BID 08/09/16 [History] Nitroglycerin [Nitrostat] 0.4 mg PO Q5M PRN 08/09/16 [History] Oxcarbazepine 600 mg PO DAILY 08/09/16 [History] Paroxetine [Paxil] 30 mg PO DAILY 08/09/16 [History] QVAR 80 mcg 80 mcg PO 1-2XD 08/09/16 [History] Amantadine [Symmetrel] 100 mg PO DAILY #30 capsule 08/15/16 [Rx] Paliperidone [Invega] 6 mg PO DAILY tab.er.24 08/15/16 [Rx] Ziprasidone [Geodon] 20 mg PO HS 30 Days 08/15/16 [Rx] Allergies clemastine [From Tavist] Adverse Reaction (Verified 06/11/16 21:23) Unknown milk Adverse Reaction (Verified 06/11/16 21:23) Unknown pseudoephedrine [From Tavist] Adverse Reaction (Verified 06/11/16 21:23) Unknown Provider Date of admission: 08/09/16 22:09 Primary care physician: PCP NO Consults: 08/09/16 22:58 Consult to Pastoral Services [CONS] Routine Comment: Discharging clinician: Pedro Padilla Assessment and Plan - Patient/Caregiver Discharge Instructions Activity: resume usual activities as tolerated Diet: regular diet - Follow up Plan Follow up with: Jeff Mueller [Other] (Dr. Mueller will resume home visits as scheduled.) Disposition: Transfer Other Hospital Course Hospital course: Ms. Duncan is a 56 year old female admitted for auditory hallucination and suicidal ideation from [facility]. For details of admission please see H&P. Patient medication were reviewed and we added Geodon 20 mg and reduced amantadine to 100 mg daily. Patient responded well to these changes and prior to discharge she denied auditory hallucination she denied any command hallucination she was reporting good sleep and appetite she was medically stable and denies any sort suicide or self-harm. - Time Spent with Patient Total time spent providing and/or coordinating discharge services: Less than 30 minutes Quality - Multiple Antipsychotics Patient discharged on 2 or more antipsychotic medications: No Procedures - Procedures Procedures: Medication Management, Crisis Stabilization, Supportive Therapy, Group Therapy, Psychoeducational Therapy Mental Status Exam - Mental Status Exam Patient orientation: Yes Person, Yes Time, Yes Place Level of alertness: Alert Patient appearance: Appropriate, Well Groomed Behavior: calm, cooperative, anxious, distractible Psychomotor activity: Slowed Eye contact: Maintains Eye Contact Mood description: Depressed, Anxious Affect description: congruent with mood, constricted, anxious Speech pattern: Normal rate, Normal rhythm, Normal tone Speech Volume: Soft/Quiet Thought process: Circumstantial, Tangential Thought Content: No Suicidal ideation, No Homicidal ideation, No Overt delusions , Yes Preoccupation, Yes Paranoid delusion Perceptual Disturbances: Yes Auditory hallucinations, Yes Visual hallucinations Judgment: Fair Insight: Partial
== END 2016-08-15 17:50 | disposition other institution (70) | DRG 750 ==
LOC: EMEROO 17:38 → 1ANU 22:09 → SUATTDRO 22:09 → 1ANU 22:12
PROVIDERS: ADMIT Psychiatry & Neurology Psychiatry; ATTEND Psychiatry & Neurology Psychiatry

== ENCOUNTER 2016-09-25 17:52 | Inpatient (IN) ==
[2016-09-25 18:45] LABS: Bilirubin,Urine Negative (Negative); Blood,Urine Negative (Negative); Clarity,Urine Cloudy (Clear); Color,Urine Yellow (Yellow); Glucose,Urine (UA) Normal (Normal); Ketones,Urine Negative (Negative); Leukocyte Esterase,Urine Large (Negative); Nitrite,Urine Negative (Negative); Protein,Urine Negative (Neg-Trace); Specific Gravity,Urine 1.016 (1.010-1.025); Urobilinogen,Urine Normal (Normal)
[2016-09-25 18:47] LABS: Bacteria,Urine Few per hpf (None-Few); Hyaline Casts,Urine None Seen per lpf (None-Few); Squamous Epithelial Cell,Urine Many per lpf (None-Few); WBC,Urine 30-50 per hpf (0-3)
[2016-09-25 18:53] LABS: Amphetamine Screen,Urine Negative ng/mL (Cutoff=1000); Barbiturate Screen,Urine Negative ng/mL (Cutoff=200); Benzodiazepines Screen,Urine Negative ng/mL (Cutoff=200); Cannabinoid Screen,Urine Negative ng/mL (Cutoff = 50); Cocaine Screen,Urine Negative ng/mL (Cutoff= 300); Opiate Screen,Urine Negative ng/mL (Cutoff=300); Phencyclidine Screen,Urine Negative ng/mL (Cutoff=25)
[2016-09-25 18:56] LABS: RBC,Urine 0-3 per hpf (0-3)
[2016-09-25 19:27] LABS: Basophils # 0.1 K/mcL (0.0-0.2); Basophils % 0.6 %; Eosinophils # 0.2 K/mcL (0.0-0.6); Eosinophils % 2.2 %; Hemoglobin 13.2 g/dL (11.5-15.4); Immature Granulocytes % 0.3 % (0-4); Lymphocytes # 3.5 K/mcL (0.6-4.6); Lymphocytes % 33.3 %; Mean Corpuscular HGB Conc 32.2 g/dL (31.6-35.5); Mean Corpuscular Hemoglobin 29.5 pg (28.0-33.3); Mean Corpuscular Volume 91.5 fL (83.0-100.0); Mean Platelet Volume 8.1 fL (9.4-12.4); Monocytes # 0.7 K/mcL (0.0-1.3); Monocytes % 6.4 %; Platelet Count 249 K/mcL (140-400); Red Blood Count 4.48 M/mcL (3.82-4.97); Red Cell Distribution Width 15.5 % (11.5-14.5); Segmented Neutrophils % 57.2 %
[2016-09-25 19:42] LABS: Alanine Aminotransferase 14 Units/L (0-55); Albumin 3.5 g/dL (3.5-5.0); Albumin/Globulin Ratio 0.9 (1.1-2.2); Alkaline Phosphatase 133 Units/L (38-126); Aspartate Amino Transferase 15 Units/L (5-34); BUN/Creatinine Ratio 14 (6-26); Bilirubin,Direct 0.1 mg/dL (0.0-0.5); Bilirubin,Indirect 0.1 mg/dL (0.0-1.2); Bilirubin,Total 0.2 mg/dL (0.2-1.2); Blood Urea Nitrogen 10 mg/dL (7-20); Calcium 9.4 mg/dL (8.6-10.8); Carbon Dioxide 23 mEq/L (19-29); Chloride 102 mEq/L (98-109); Glucose 92 mg/dL (70-99); Osmolality,Calculated 279 (280-300); Potassium 4.1 mEq/L (3.5-4.5); Sodium 135 mEq/L (136-145); Total Protein 7.5 g/dL (6.0-8.3); eGFR For African Americans > 60 (> 60); eGFR For Non-African Americans > 60 (> 60)
[2016-09-25 19:43] LABS: Acetaminophen < 1.0 mcg/mL (10-30); Ethanol < 10 mg/dL (0-10); Salicylate < 5.0 mg/dL (15-30)
[2016-09-25 20:01] LABS: Thyroid Stimulating Hormone 2.315 mcIU/mL (0.350-4.840)
[2016-09-29 08:35] VITALS: BP 109/65
== END 2016-09-29 13:55 | DRG 750 ==
LOC: EMEROO 17:52 → 1ANU 21:40
PROVIDERS: ADMIT Psychiatry & Neurology Psychiatry; ATTEND Psychiatry & Neurology Psychiatry

== ENCOUNTER 2016-10-26 21:32 | Inpatient (IN) ==
[2016-10-26 23:58] LABS: Basophils # 0.1 K/mcL (0.0-0.2); Basophils % 0.7 %; Eosinophils # 0.3 K/mcL (0.0-0.6); Eosinophils % 2.1 %; Hematocrit 41.5 % (35.3-44.9); Hemoglobin 13.3 g/dL (11.5-15.4); Immature Granulocytes % 0.2 % (0-4); Lymphocytes # 3.7 K/mcL (0.6-4.6); Lymphocytes % 30.7 %; Mean Corpuscular Hemoglobin 29.1 pg (28.0-33.3); Mean Corpuscular Volume 90.8 fL (83.0-100.0); Mean Platelet Volume 8.4 fL (9.4-12.4); Monocytes # 0.9 K/mcL (0.0-1.3); Monocytes % 7.8 %; Neutrophils # 7.1 K/mcL (1.6-8.9); Platelet Count 239 K/mcL (140-400); Red Blood Count 4.57 M/mcL (3.82-4.97); Red Cell Distribution Width 15.5 % (11.5-14.5); Segmented Neutrophils % 58.5 %
[2016-10-27 00:11] LABS: BUN/Creatinine Ratio 17 (6-26); Blood Urea Nitrogen 15 mg/dL (7-20); Calcium 9.8 mg/dL (8.6-10.8); Carbon Dioxide 27 mEq/L (19-29); Chloride 100 mEq/L (98-109); Glucose 95 mg/dL (70-99); Osmolality,Calculated 287 (280-300); Sodium 138 mEq/L (136-145); eGFR For African Americans > 60 (> 60); eGFR For Non-African Americans > 60 (> 60)
[2016-10-27 00:20] LABS: Bilirubin,Urine Negative (Negative); Blood,Urine Negative (Negative); Clarity,Urine Clear (Clear); Color,Urine Yellow (Yellow); Glucose,Urine (UA) Normal (Normal); Ketones,Urine Negative (Negative); Leukocyte Esterase,Urine Large (Negative); Nitrite,Urine Negative (Negative); Protein,Urine Negative (Neg-Trace); Specific Gravity,Urine 1.009 (1.010-1.025); Urobilinogen,Urine Normal (Normal)
[2016-10-27 00:26] LABS: Amphetamine Screen,Urine Negative ng/mL (Cutoff=1000); Barbiturate Screen,Urine Negative ng/mL (Cutoff=200); Benzodiazepines Screen,Urine Negative ng/mL (Cutoff=200); Cannabinoid Screen,Urine Negative ng/mL (Cutoff = 50); Cocaine Screen,Urine Negative ng/mL (Cutoff= 300); Opiate Screen,Urine Negative ng/mL (Cutoff=300); Phencyclidine Screen,Urine Negative ng/mL (Cutoff=25)
[2016-10-27 00:28] LABS: Bacteria,Urine None Seen per hpf (None-Few); Hyaline Casts,Urine None Seen per lpf (None-Few); RBC,Urine 0-3 per hpf (0-3); Squamous Epithelial Cell,Urine Many per lpf (None-Few)
--- NOTE | 2016-10-27 03:18 | Emergency Department Note ---
Disposition Clinical Impression: Schizoaffective disorder, bipolar type, Suicidal ideation, Auditory hallucinations Disposition: Admitted As Inpatient Time of Disposition: 09:10 Psych HPI - General Chief Complaint: ED Psychiatric Symptoms Stated Complaint: hearing voices, si/hi Time Seen by Provider: 10/26/16 22:27 Source: patient Nursing Notes Reviewed: Yes Vital Signs Reviewed: Yes - History of Present Illness Pt complaint: suicidal ideation Onset (ago): hour(s) Duration: constant History of similar episodes: Yes Improves with: none Worsens with: none Alleged intoxication: No Associated Psychiatric Symptoms: suicidal ideation, auditory hallucinations, visual hallucinations Associated symptoms: Reports: denies other symptoms Traumatic symptoms: denies traumatic injury Treatments prior to arrival: none Self harm or harm to others: admits thoughts of self harm, has plan - Related Data Home Medications Medication Instructions Recorded Confirmed Aspirin 81 mg PO DAILY 08/09/16 10/27/16 Atorvastatin Calcium 80 mg PO HS 08/09/16 10/27/16 ClonazePAM [Klonopin] 1 mg PO HS 08/09/16 10/27/16 Docusate [Colace] 100 mg PO BID PRN 08/09/16 10/27/16 Furosemide [Lasix] 40 mg PO BID 08/09/16 10/27/16 Levothyroxine Sodium [Levoxyl] 175 mg PO QAM 08/09/16 10/27/16 Losartan Potassium [Cozaar] 50 mg PO DAILY 08/09/16 10/27/16 Meclizine HCl [Verticalm] 25 mg PO Q8H PRN 08/09/16 10/27/16 Metoprolol [Lopressor] 50 mg PO BID 08/09/16 10/27/16 Niacin [Niacor] 500 mg PO BID 08/09/16 10/27/16 Nitroglycerin [Nitrostat] 0.4 mg PO Q5M PRN 08/09/16 10/27/16 Oxcarbazepine 600 mg PO DAILY 08/09/16 10/27/16 Acetaminophen [Tylenol] 325 mg PO Q6H PRN 09/25/16 10/27/16 Albuterol Neb [Proventil Neb] 2.5 mg IH Q4H PRN 09/25/16 10/27/16 Albuterol Sulfate [Ventolin Hfa] 2 puff IH Q4H PRN 09/25/16 10/27/16 Amantadine [Symmetrel] 100 mg PO BID 09/25/16 10/27/16 Calcium Carbonate [Calcium] 500 mg PO DAILY 09/25/16 10/27/16 Eucalyptus/Menthol [Cough Drops] 1 each MM Q2H PRN 09/25/16 10/27/16 Ferrous Sulfate 325 mg PO DAILY 09/25/16 10/27/16 Haloperidol Decanoate [Haldol 100 mg IM Q3W 09/25/16 10/27/16 Decanoate 100] Ibuprofen [Motrin] 400 mg PO Q8H PRN 09/25/16 10/27/16 Loperamide HCl [Anti-Diarrheal] 2 mg PO 8XD PRN 09/25/16 10/27/16 Polyethylene Glycol 3350 [MiraLAX 17 gm PO DAILY 09/25/16 10/27/16 Powder Bulk 17.9 Oz] Saline Nasal [place] [[place] Nasal 2 spray NS Q2H PRN 09/25/16 10/27/16 Plato] Beclomethasone Diprop 80mcg [Qvar 2 puff IH BID 10/27/16 10/27/16 80 mcg] Paroxetine [Paxil] 30 mg PO DAILY 10/27/16 10/27/16 Previous Rx's Medication Instructions Recorded Ziprasidone [Geodon] 40 mg PO BID #120 capsule 09/29/16 Allergies Allergy/AdvReac Type Severity Reaction Status Date / Time clemastine [From Tavist] AdvReac Unknown Verified 06/11/16 21:23 milk AdvReac Unknown Verified 06/11/16 21:23 pseudoephedrine [From Tavist] AdvReac Unknown Verified 06/11/16 21:23 All systems ED: reviewed and negative except as stated. Constitutional: Denies: fever Eyes: Denies: eye pain ENT ED: Denies: ear pain Cardiovascular: Denies: chest pain Respiratory: Denies: cough Gastrointestinal: Denies: abdominal pain Genitourinary: Denies: dysuria Musculoskeletal: Denies: back pain Integumentary: Denies: rash Neurological: Denies: headache Psychiatric: Reports: suicidal thoughts, homicidal thoughts, auditory hallucinations Endocrine: Denies: fatigue Past Medical History - Past Medical History Medical history: Reports: asthma, COPD, diabetes, hyperlipidemia, hypertension, other Surgical history: Reports: , cholecystectomy, other Psychiatric history: Reports: bipolar, schizophrenia, previous psychiatric hospitalization - Social History Smoking Status: Former smoker Smokeless Tobacco Status: No Alcohol use: Reports: none Drug use: Reports: none Physical Exam - General Limitations: language barrier General appearance: alert, anxious - Head Head exam: normocephalic - Eye Eye exam: Present: EOMI - ENT ENT exam: normal oropharynx - Neck Neck exam: Present: normal inspection, full ROM - Chest Chest inspection: Present: symmetric chest wall rise - Respiratory Respiratory exam: Absent: respiratory distress - Cardiovascular Cardiovascular exam: Present: regular rate - Abdominal Exam Abdominal exam: Present: soft, Non-Tender - Extremities Exam Extremities exam: Present: normal inspection, full ROM, normal capillary refill - Back Exam Back exam: Present: full ROM - Neurological Exam Neurological exam: Present: alert - Psychiatric Psychiatric exam: Present: normal affect, normal mood, suicidal ideation - Skin Skin exam: Present: warm, dry, intact, normal color. Absent: rash, cyanosis, diaphoresis Course Vital Signs Temperature 97.8 F 10/26/16 22:16 Pulse Rate 58 10/26/16 22:16 Respiratory Rate 20 10/26/16 22:16 Blood Pressure 148/82 10/26/16 22:16 O2 Sat by Pulse Oximetry 98 10/26/16 22:16 Temperature 97.4 F L 10/27/16 20:10 Pulse Rate 55 10/28/16 08:13 Respiratory Rate 16 10/28/16 08:13 Blood Pressure 113/66 10/28/16 08:13 O2 Sat by Pulse Oximetry 99 10/27/16 02:33 Oxygen Delivery Oxygen Delivery Room Air Psych - MDM Narrative Medical decision making narrative: Patient is medically cleared in evaluated by when I staff. Patient accepted for admission for further evaluation and stabilization. Patient stable throughout her course here. - Lab Data Result diagrams: 10/26/16 23:51 10/26/16 23:51 Lab Results 10/26/16 10/26/16 10/27/16 Range/Units 23:51 23:51 00:03 WBC 12.1 H (4.3-11.1) K/mcL RBC 4.57 (3.82-4.97) M/mcL Hgb 13.3 (11.5-15.4) g/dL Hct 41.5 (35.3-44.9) % MCV 90.8 (83.0-100.0) fL MCH 29.1 (28.0-33.3) pg MCHC 32.0 (31.6-35.5) g/dL RDW 15.5 H (11.5-14.5) % Plt Count 239 (140-400) K/mcL MPV 8.4 L (9.4-12.4) fL Immature Gran % 0.2 (0-4) % Seg Neutrophils % 58.5 % Lymphocytes % 30.7 % Monocytes % 7.8 % Eosinophils % 2.1 % Basophils % 0.7 % Neutrophils # 7.1 (1.6-8.9) K/mcL Lymphocytes # 3.7 (0.6-4.6) K/mcL Monocytes # 0.9 (0.0-1.3) K/mcL Eosinophils # 0.3 (0.0-0.6) K/mcL Basophils # 0.1 (0.0-0.2) K/mcL Sodium 138 (136-145) mEq/L Potassium 4.0 (3.5-4.5) mEq/L Chloride 100 (98-109) mEq/L Carbon Dioxide 27 (19-29) mEq/L BUN 15 (7-20) mg/dL Creatinine 0.86 (0.57-1.11) mg/dL Est GFR ( Amer) > 60 (> 60) Est GFR (Non-Af Amer) > 60 (> 60) BUN/Creatinine Ratio 17 (6-26) Glucose 95 (70-99) mg/dL Calculated Osmolality 287 (280-300) Calcium 9.8 (8.6-10.8) mg/dL Urine Color Yellow (Yellow) Urine Clarity Clear (Clear) Urine pH 7.0 (5.0-8.0) pH Units Ur Specific [place] 1.009 L (1.010-1.025) Urine Protein Negative (Neg-Trace) mg/dL Urine Glucose (UA) Normal (Normal) mg/dL Urine Ketones Negative (Negative) mg/dL Urine Blood Negative (Negative) Urine Nitrite Negative (Negative) Urine Bilirubin Negative (Negative) Urine Urobilinogen Normal (Normal) mg/dL Ur Leukocyte Esterase Large H (Negative) Urine Microscopic RBC 0-3 (0-3) per hpf Urine Microscopic WBC 5-15 H (0-3) per hpf Ur Squamous Epith Cells Many H (None-Few) per lpf Urine Bacteria None Seen (None-Few) per hpf Hyaline Casts None Seen (None-Few) per lpf Salicylates < 5.0 L (15-30) mg/dL Urine Opiates Screen (Sorgof=467) ng/mL Acetaminophen < 1.0 L (10-30) mcg/mL Ur Barbiturates Screen (Qrepvr=973) ng/mL Ur Phencyclidine Scrn (Cutoff=25) ng/mL Ur Amphetamines Screen (Orkdvj=8847) ng/mL U Benzodiazepines Scrn (Ypmomx=562) ng/mL Urine Cocaine Screen (Cutoff= 300) ng/mL U Marijuana (THC) Screen (Cutoff = 50) ng/mL Ethyl Alcohol < 10 (0-10) mg/dL 10/27/16 Range/Units 00:03 WBC (4.3-11.1) K/mcL RBC (3.82-4.97) M/mcL Hgb (11.5-15.4) g/dL Hct (35.3-44.9) % MCV (83.0-100.0) fL MCH (28.0-33.3) pg MCHC (31.6-35.5) g/dL RDW (11.5-14.5) % Plt Count (140-400) K/mcL MPV (9.4-12.4) fL Immature Gran % (0-4) % Seg Neutrophils % % Lymphocytes % % Monocytes % % Eosinophils % % Basophils % % Neutrophils # (1.6-8.9) K/mcL Lymphocytes # (0.6-4.6) K/mcL Monocytes # (0.0-1.3) K/mcL Eosinophils # (0.0-0.6) K/mcL Basophils # (0.0-0.2) K/mcL Sodium (136-145) mEq/L Potassium (3.5-4.5) mEq/L Chloride (98-109) mEq/L Carbon Dioxide (19-29) mEq/L BUN (7-20) mg/dL Creatinine (0.57-1.11) mg/dL Est GFR ( Amer) (> 60) Est GFR (Non-Af Amer) (> 60) BUN/Creatinine Ratio (6-26) Glucose (70-99) mg/dL Calculated Osmolality (280-300) Calcium (8.6-10.8) mg/dL Urine Color (Yellow) Urine Clarity (Clear) Urine pH (5.0-8.0) pH Units Ur Specific [place] (1.010-1.025) Urine Protein (Neg-Trace) mg/dL Urine Glucose (UA) (Normal) mg/dL Urine Ketones (Negative) mg/dL Urine Blood (Negative) Urine Nitrite (Negative) Urine Bilirubin (Negative) Urine Urobilinogen (Normal) mg/dL Ur Leukocyte Esterase (Negative) Urine Microscopic RBC (0-3) per hpf Urine Microscopic WBC (0-3) per hpf Ur Squamous Epith Cells (None-Few) per lpf Urine Bacteria (None-Few) per hpf Hyaline Casts (None-Few) per lpf Salicylates (15-30) mg/dL Urine Opiates Screen Negative (Uwnusg=597) ng/mL Acetaminophen (10-30) mcg/mL Ur Barbiturates Screen Negative (Nuxpul=677) ng/mL Ur Phencyclidine Scrn Negative (Cutoff=25) ng/mL Ur Amphetamines Screen Negative (Utzkeg=3289) ng/mL U Benzodiazepines Scrn Negative (Cvkprh=530) ng/mL Urine Cocaine Screen Negative (Cutoff= 300) ng/mL U Marijuana (THC) Screen Negative (Cutoff = 50) ng/mL Ethyl Alcohol (0-10) mg/dL Psychiatric Medical Clearance - Medical Clearance Checklist Medical History: No Social History Section defined Current Vitals: Last Vital Signs Temp 97.4 F L 10/27/16 20:10 Pulse 55 10/28/16 08:13 Resp 16 10/28/16 08:13 BP 113/66 10/28/16 08:13 Pulse Ox 99 10/27/16 02:33 Abnormal Labs: Abnormal lab results WBC 12.1 K/mcL (4.3-11.1) H 10/26/16 23:51 RDW 15.5 % (11.5-14.5) H 10/26/16 23:51 MPV 8.4 fL (9.4-12.4) L 10/26/16 23:51 Ur Specific [place] 1.009 (1.010-1.025) L 10/27/16 00:03 Ur Leukocyte Esterase Large (Negative) H 10/27/16 00:03 Urine Microscopic WBC 5-15 per hpf (0-3) H 10/27/16 00:03 Ur Squamous Epith Cells Many per lpf (None-Few) H 10/27/16 00:03 Salicylates < 5.0 mg/dL (15-30) L 10/26/16 23:51 Acetaminophen < 1.0 mcg/mL (10-30) L 10/26/16 23:51 Statement of Medical Clearance: I have evaluated the patient, reviewed diagnostic information, and certify that the patient's medical condition is sufficiently stable that transfer to the psychiatric unit does not pose a significant risk of deterioration.
[2016-10-27] MEDS ORDERED: Acetaminophen 325 MG TABLET PO PRN (04:10)
[2016-10-27] MEDS ORDERED: hydrOXYzine pamoate 25 MG CAPSULE PO PRN (04:10)
[2016-10-27] MEDS ORDERED: Haloperidol Lactate 5 MG/ML VIAL IM PRN (04:10)
[2016-10-27] MEDS ORDERED: MOM Conc 10 ML UD.LIQ PO PRN (04:10)
[2016-10-27] MEDS ORDERED: traZODone 50 MG TABLET PO PRN (04:10)
[2016-10-27] MEDS ORDERED: *HR* LORazepam 2 MG/ML VIAL IM PRN (04:10)
[2016-10-27] MEDS ORDERED: *HR* LORazepam 1 MG TABLET PO PRN (04:10)
[2016-10-27] MEDS ORDERED: Mag Hydrox/Al Hydrox/Simeth 30 ML UDC PO PRN (04:10)
[2016-10-27] MEDS ORDERED: Haloperidol Decanoate 50 MG/ML VIAL IM SCH (04:15)
[2016-10-27] MEDS ORDERED: Albuterol 2.5 MG/3 ML NEBULIZER IH PRN (04:15)
[2016-10-27 04:33] LABS: Acetaminophen < 1.0 mcg/mL (10-30); Ethanol < 10 mg/dL (0-10); Salicylate < 5.0 mg/dL (15-30)
[2016-10-27] MEDS: Ziprasidone 20 MG CAPSULE PO SCH ×2 (09:42→21:04)
[2016-10-27] MEDS: Furosemide 40 MG TABLET PO SCH ×2 (09:43→21:03)
[2016-10-27] MEDS: Aspirin 81 MG TAB.CHEW PO SCH (09:44)
[2016-10-27] MEDS: Niacin (24 HR) 500 MG TAB.ER.24H PO SCH (09:44)
[2016-10-27] MEDS: OXcarbazepine 150 MG TABLET PO SCH (09:45)
[2016-10-27] MEDS: Budesonide/Formoterol 160/4.5 MDI IH SCH ×2 (11:10→22:05)
--- NOTE | 2016-10-27 16:02 | Psychiatry History & Physical ---
Date of Encounter: 10/27/16 Time of Encounter: 13:00 History of Present Illness Patient Stated Chief Complaint: Suicidal homicidal and hearing voices Medicare Admission Attestation: For traditional Medicare patients the provided hospital inpatient services are reasonable and necessary and in the case of services not specified as inpatient -only under 42 CFR 419.22 (n), that they are appropriately provided as inpatient services in accordance 42 CFR 412.3. For [facility] the patient may reasonably be expected to be discharged or transferred to a hospital within 96 hours after admission to the Critical [facility]. Admitted From: Emergency Dept History of Present Illness: Ms. Duncan is a 56 year old female well known to us from previous admissions, most recent discharge was 09/29/2016. Patient presented complaining of suicidal and homicidal ideation and auditory hallucination commanding her to stab herself and others. Patient always presented with these complaints. She lives in a assisted and recently has been concerned about her mother, health. Past Med Surg Social Fam HX - Past Medical History Medical history: asthma, COPD, diabetes, hyperlipidemia, hypertension, other - Past Psychiatric History Psychiatric history: Reports: anxiety, bipolar, depression, prior suicide attempt, previous psychiatric hospitalization Past psychiatric history details: Recent discharge on 09/29/2016 Family psychiatric history: Unknown Family History of Suicide: Unknown - Past Surgical History Surgical History: , cholecystectomy, other - Social History Smoking Status: Former smoker Smokeless Tobacco Status: No Alcohol use: none Drug use: none - Family History Mother Living Status: Still Living Hx Family Cardiac Disorders: Yes Hx Family Endocrine Disorder: Yes Medications & Allergies Aspirin 81 mg PO DAILY 08/09/16 [History] Atorvastatin Calcium 80 mg PO HS 08/09/16 [History] ClonazePAM [Klonopin] 1 mg PO HS 08/09/16 [History] Docusate [Colace] 100 mg PO BID PRN 08/09/16 [History] Furosemide [Lasix] 40 mg PO BID 08/09/16 [History] Levothyroxine Sodium [Levoxyl] 175 mg PO QAM 08/09/16 [History] Losartan Potassium [Cozaar] 50 mg PO DAILY 08/09/16 [History] Meclizine HCl [Verticalm] 25 mg PO Q8H PRN 08/09/16 [History] Metoprolol [Lopressor] 50 mg PO BID 08/09/16 [History] Niacin [Niacor] 500 mg PO BID 08/09/16 [History] Nitroglycerin [Nitrostat] 0.4 mg PO Q5M PRN 08/09/16 [History] Oxcarbazepine 600 mg PO DAILY 08/09/16 [History] Acetaminophen [Tylenol] 325 mg PO Q6H PRN 09/25/16 [History] Albuterol Neb [Proventil Neb] 2.5 mg IH Q4H PRN 09/25/16 [History] Albuterol Sulfate [Ventolin Hfa] 2 puff IH Q4H PRN 09/25/16 [History] Amantadine [Symmetrel] 100 mg PO BID 09/25/16 [History] Calcium Carbonate [Calcium] 500 mg PO DAILY 09/25/16 [History] Eucalyptus/Menthol [Cough Drops] 1 each MM Q2H PRN 09/25/16 [History] Ferrous Sulfate 325 mg PO DAILY 09/25/16 [History] Haloperidol Decanoate [Haldol Decanoate 100] 100 mg IM Q3W 09/25/16 [History] Ibuprofen [Motrin] 400 mg PO Q8H PRN 09/25/16 [History] Loperamide HCl [Anti-Diarrheal] 2 mg PO 8XD PRN 09/25/16 [History] Polyethylene Glycol 3350 [MiraLAX Powder Bulk 17.9 Oz] 17 gm PO DAILY 09/25/16 [ History] Saline Nasal [place] [[place] Nasal [place]] 2 spray NS Q2H PRN 09/25/16 [History] Ziprasidone [Geodon] 40 mg PO BID #120 capsule 09/29/16 [Rx] Beclomethasone Diprop 80mcg [Qvar 80 mcg] 2 puff IH BID 10/27/16 [History] Paroxetine [Paxil] 30 mg PO DAILY 10/27/16 [History] Allergies clemastine [From Tavist] Adverse Reaction (Verified 06/11/16 21:23) Unknown milk Adverse Reaction (Verified 06/11/16 21:23) Unknown pseudoephedrine [From Tavist] Adverse Reaction (Verified 06/11/16 21:23) Unknown Review of Systems Psychiatric: Reports: depression, anxiety, suicidal ideation, homicidal ideation , auditory hallucinations Mental Status Exam Patient orientation: Yes Person, Yes Time, Yes Place Level of alertness: Alert Patient appearance: Appropriate, Well Groomed, Obese Behavior: nervous, anxious Psychomotor activity: Normal Eye contact: Maintains Eye Contact Mood description: Depressed, Anxious Affect description: full range, incongruent with mood Speech pattern: Normal rate, Normal rhythm, Normal tone Speech volume: Normal Thought process: Linear, Goal Oriented Thought content: Yes Suicidal ideation, Yes Homicidal ideation, No Overt delusions Perceptual disturbances: Yes Auditory hallucinations, No Visual hallucinations Attention span: Unable to Focus Memory description: Grossly Intact Patient reliability: Not Reliable Historian Intelligence estimate: Below Average Judgment: Limited Insight: Partial Results - Vital Signs Vital signs: Temp Pulse Resp BP Pulse Ox 97.6 F 66 16 109/60 99 10/27/16 09:00 10/27/16 09:00 10/27/16 09:00 10/27/16 03:33 10/27/16 02:33 - Labs Labs: Laboratory Last Values WBC 12.1 K/mcL (4.3-11.1) H 10/26/16 23:51 RBC 4.57 M/mcL (3.82-4.97) 10/26/16 23:51 Hgb 13.3 g/dL (11.5-15.4) 10/26/16 23:51 Hct 41.5 % (35.3-44.9) 10/26/16 23:51 MCV 90.8 fL (83.0-100.0) 10/26/16 23:51 MCH 29.1 pg (28.0-33.3) 10/26/16 23:51 MCHC 32.0 g/dL (31.6-35.5) 10/26/16 23:51 RDW 15.5 % (11.5-14.5) H 10/26/16 23:51 Plt Count 239 K/mcL (140-400) 10/26/16 23:51 MPV 8.4 fL (9.4-12.4) L 10/26/16 23:51 Immature Gran % 0.2 % (0-4) 10/26/16 23:51 Seg Neutrophils % 58.5 % 10/26/16 23:51 Lymphocytes % 30.7 % 10/26/16 23:51 Monocytes % 7.8 % 10/26/16 23:51 Eosinophils % 2.1 % 10/26/16 23:51 Basophils % 0.7 % 10/26/16 23:51 Neutrophils # 7.1 K/mcL (1.6-8.9) 10/26/16 23:51 Lymphocytes # 3.7 K/mcL (0.6-4.6) 10/26/16 23:51 Monocytes # 0.9 K/mcL (0.0-1.3) 10/26/16 23:51 Eosinophils # 0.3 K/mcL (0.0-0.6) 10/26/16 23:51 Basophils # 0.1 K/mcL (0.0-0.2) 10/26/16 23:51 Sodium 138 mEq/L (136-145) 10/26/16 23:51 Potassium 4.0 mEq/L (3.5-4.5) 10/26/16 23:51 Chloride 100 mEq/L (98-109) 10/26/16 23:51 Carbon Dioxide 27 mEq/L (19-29) 10/26/16 23:51 BUN 15 mg/dL (7-20) 10/26/16 23:51 Creatinine 0.86 mg/dL (0.57-1.11) 10/26/16 23:51 Est GFR ( Amer) > 60 (> 60) 10/26/16 23:51 Est GFR (Non-Af Amer) > 60 (> 60) 10/26/16 23:51 BUN/Creatinine Ratio 17 (6-26) 10/26/16 23:51 Glucose 95 mg/dL (70-99) 10/26/16 23:51 Calculated Osmolality 287 (280-300) 10/26/16 23:51 Calcium 9.8 mg/dL (8.6-10.8) 10/26/16 23:51 Urine Color Yellow (Yellow) 10/27/16 00:03 Urine Clarity Clear (Clear) 10/27/16 00:03 Urine pH 7.0 pH Units (5.0-8.0) 10/27/16 00:03 Ur Specific [place] 1.009 (1.010-1.025) L 10/27/16 00:03 Urine Protein Negative mg/dL (Neg-Trace) 10/27/16 00:03 Urine Glucose (UA) Normal mg/dL (Normal) 10/27/16 00:03 Urine Ketones Negative mg/dL (Negative) 10/27/16 00:03 Urine Blood Negative (Negative) 10/27/16 00:03 Urine Nitrite Negative (Negative) 10/27/16 00:03 Urine Bilirubin Negative (Negative) 10/27/16 00:03 Urine Urobilinogen Normal mg/dL (Normal) 10/27/16 00:03 Ur Leukocyte Esterase Large (Negative) H 10/27/16 00:03 Urine Microscopic RBC 0-3 per hpf (0-3) 10/27/16 00:03 Urine Microscopic WBC 5-15 per hpf (0-3) H 10/27/16 00:03 Ur Squamous Epith Cells Many per lpf (None-Few) H 10/27/16 00:03 Urine Bacteria None Seen per hpf (None-Few) 10/27/16 00:03 Hyaline Casts None Seen per lpf (None-Few) 10/27/16 00:03 Salicylates < 5.0 mg/dL (15-30) L 10/26/16 23:51 Urine Opiates Screen Negative ng/mL (Qxqbut=144) 10/27/16 00:03 Acetaminophen < 1.0 mcg/mL (10-30) L 10/26/16 23:51 Ur Barbiturates Screen Negative ng/mL (Pxikww=566) 10/27/16 00:03 Ur Phencyclidine Scrn Negative ng/mL (Cutoff=25) 10/27/16 00:03 Ur Amphetamines Screen Negative ng/mL (Ndsktf=5430) 10/27/16 00:03 U Benzodiazepines Scrn Negative ng/mL (Jjckhy=248) 10/27/16 00:03 Urine Cocaine Screen Negative ng/mL (Cutoff= 300) 10/27/16 00:03 U Marijuana (THC) Screen Negative ng/mL (Cutoff = 50) 10/27/16 00:03 Ethyl Alcohol < 10 mg/dL (0-10) 10/26/16 23:51 Assessment and Plan (1) Schizoaffective disorder, bipolar type Current visit: Yes Status: Acute Plan: Admit inpatient for safety and stabilization, Close observation, Suicide Precautions per unit protocol, Encourage participation in unit milieu, Group Therapy, Monitor sleep, Monitor appetite Additional Plan: Continue medications encouraged patient to participate in activities and groups. Risks, benefits, side effects, alternatives discussed w/pt: Yes Patient agreeable to treatment: Yes Estimated Length of Stay (Days): 5
[2016-10-27] MEDS: clonazePAM 1 MG TABLET PO SCH (21:04)
[2016-10-28] MEDS: Ziprasidone 20 MG CAPSULE PO SCH ×2 (08:02→20:11)
[2016-10-28] MEDS: Niacin (24 HR) 500 MG TAB.ER.24H PO SCH (08:03)
[2016-10-28] MEDS: Furosemide 40 MG TABLET PO SCH ×2 (08:03→15:44)
[2016-10-28] MEDS: OXcarbazepine 150 MG TABLET PO SCH (08:03)
[2016-10-28] MEDS: Aspirin 81 MG TAB.CHEW PO SCH (08:03)
[2016-10-28] MEDS: Budesonide/Formoterol 160/4.5 MDI IH SCH ×2 (08:08→22:12)
--- NOTE | 2016-10-28 13:45 | Psychiatry Progress Note ---
Date of Encounter: 10/28/16 Time of Encounter: 13:36 Subjective Interval history: Patient is here for follow-up. Staff reports she is socializing and participating in groups but continued to make statements about its voices telling her to hurt herself or others. Notes by sr. social media & mobile manager indicated that the nursing home staff. The patient is manipulative and she makes treatment met [address] [place] [address] for evaluation and anxious pain and suicidal ideation otherwise reports she is doing well at the nursing home and enjoying activities and physically stable. Patient presents well she is less anxious she still reported the voices but she stated that there are looseness and tends and she is enjoying some activities including groups and watching TV. I discussed with her that she needed to stay busy and she is able to endorse several activities including crafts are poor watching TV and going out from the nursing home for shopping and other things and physical family at time. She seemed to understand and willing to try. Review of Systems Psychiatric: Reports: depression, anxiety, suicidal ideation, homicidal ideation , auditory hallucinations Objective: Exam Patient orientation: Yes Person, Yes Time, Yes Place Level of alertness: Alert Patient appearance: Appropriate, Well Groomed, Obese Behavior: nervous, anxious Psychomotor activity: Normal Eye contact: Maintains Eye Contact Mood description: Depressed, Anxious Affect description: full range, incongruent with mood Speech pattern: Normal rate, Normal rhythm, Normal tone Speech volume: Normal Thought process: Linear, Goal Oriented Thought content: Yes Suicidal ideation, Yes Homicidal ideation, No Overt delusions Perceptual disturbances: Yes Auditory hallucinations, No Visual hallucinations Judgment: Limited Insight: Partial Results - Vital Signs Vital Signs: Temp Pulse Resp BP Pulse Ox 97.6 F 55 16 113/66 99 10/28/16 09:00 10/28/16 09:00 10/28/16 09:00 10/28/16 09:00 10/27/16 02:33 Assessment and Plan (1) Schizoaffective disorder, bipolar type Current visit: Yes Status: Acute Plan: Continue hospitalization, Close observation, Suicide Precautions per unit protocol, Encourage participation in unit milieu, Group Therapy, Monitor sleep, Monitor appetite Risks, benefits, side effects, alternatives discussed w/pt: Yes Patient agreeable to treatment: Yes Consult Discharge Plan - Plan Additional Instructions: Dr. Jeff Mueller, psychiatrist, we will continue to see you monthly at the nursing home. Discharge records should be faxed to 2 different numbers: and [phone]. Referrals: NO,PCP [Primary Care Provider] -
[2016-10-28] MEDS: clonazePAM 1 MG TABLET PO SCH (20:11)
[2016-10-29] MEDS: Aspirin 81 MG TAB.CHEW PO SCH (08:39)
[2016-10-29] MEDS: Ziprasidone 20 MG CAPSULE PO SCH ×2 (08:40→21:16)
[2016-10-29] MEDS: Furosemide 40 MG TABLET PO SCH ×2 (08:41→14:40)
[2016-10-29] MEDS: Niacin (24 HR) 500 MG TAB.ER.24H PO SCH (08:42)
[2016-10-29] MEDS: OXcarbazepine 150 MG TABLET PO SCH (08:43)
[2016-10-29] MEDS: Budesonide/Formoterol 160/4.5 MDI IH SCH ×2 (09:54→21:29)
--- NOTE | 2016-10-29 13:24 | Psychiatry Progress Note ---
Date of Encounter: 10/29/16 Review of Systems Psychiatric: Reports: depression, anxiety, suicidal ideation, homicidal ideation , auditory hallucinations Objective: Exam Patient orientation: Yes Person, Yes Time, Yes Place Level of alertness: Alert Patient appearance: Appropriate, Well Groomed, Obese Behavior: nervous, anxious Psychomotor activity: Normal Eye contact: Maintains Eye Contact Mood description: Depressed, Anxious Affect description: full range, incongruent with mood Speech pattern: Normal rate, Normal rhythm, Normal tone Speech volume: Normal Thought process: Linear, Goal Oriented Thought content: Yes Suicidal ideation, Yes Homicidal ideation, No Overt delusions Perceptual disturbances: Yes Auditory hallucinations, No Visual hallucinations Judgment: Limited Insight: Partial Results - Vital Signs Vital Signs: Temp Pulse Resp BP Pulse Ox 98 F 60 16 120/74 99 10/29/16 09:00 10/29/16 09:00 10/29/16 09:00 10/29/16 09:00 10/27/16 02:33 Assessment and Plan (1) Schizoaffective disorder, bipolar type Current visit: Yes Status: Acute Plan: Continue hospitalization, Close observation, Suicide Precautions per unit protocol, Encourage participation in unit milieu, Group Therapy, Monitor sleep, Monitor appetite Risks, benefits, side effects, alternatives discussed w/pt: Yes Patient agreeable to treatment: Yes Consult Discharge Plan - Plan Additional Instructions: Dr. Jeff Mueller, psychiatrist, we will continue to see you monthly at the halfway. Discharge records should be faxed to 2 different numbers: and [phone]. Referrals: NO,PCP [Primary Care Provider] -
--- NOTE | 2016-10-29 13:51 | Psychiatry Progress Note ---
Date of Encounter: 10/29/16 Time of Encounter: 13:00 Subjective Interval history: Patient seen for follow-up. Nursing staff report patient is endorsing suicidal and homicidal ideation and auditory hallucination although her behavior and interaction with other people on the unit is very positive and she seems relaxed and mood well-adjusted and as discussed before, fdc reported that patient sometime Reports symptoms that get her admitted into a hospital probably to avoid her workshop. She complains of increased sleepiness and believed that Geodon is causing the symptoms I reviewed with her medication and we will discontinue the daytime dose of Geodon and continue the night dose. Review of Systems Psychiatric: Reports: depression, anxiety, suicidal ideation, homicidal ideation , auditory hallucinations Objective: Exam Patient orientation: Yes Person, Yes Time, Yes Place Level of alertness: Alert Patient appearance: Appropriate, Well Groomed, Obese Behavior: nervous, anxious Psychomotor activity: Normal Eye contact: Maintains Eye Contact Mood description: Euthymic/stable, Anxious Affect description: full range, incongruent with mood Speech pattern: Normal rate, Normal rhythm, Normal tone Speech volume: Normal Thought process: Linear, Goal Oriented Thought content: Yes Suicidal ideation, Yes Homicidal ideation, No Overt delusions Perceptual disturbances: Yes Auditory hallucinations, No Visual hallucinations Judgment: Limited Insight: Partial Results - Vital Signs Vital Signs: Temp Pulse Resp BP Pulse Ox 98 F 60 16 120/74 99 10/29/16 09:00 10/29/16 09:00 10/29/16 09:00 10/29/16 09:00 10/27/16 02:33 Assessment and Plan (1) Schizoaffective disorder, bipolar type Current visit: Yes Status: Acute Plan: Continue hospitalization, Close observation, Suicide Precautions per unit protocol, Encourage participation in unit milieu, Group Therapy, Monitor sleep, Monitor appetite Additional Plan: We will discontinue Geodon 40 mg daytime dose. Continue Geodon 40 mg at bedtime Risks, benefits, side effects, alternatives discussed w/pt: Yes Patient agreeable to treatment: Yes Consult Discharge Plan - Plan Additional Instructions: Dr. Jeff Mueller, psychiatrist, we will continue to see you monthly at the [facility]. Discharge records should be faxed to 2 different numbers: and [phone]. Referrals: NO,PCP [Primary Care Provider] -
[2016-10-29] MEDS: clonazePAM 1 MG TABLET PO SCH (21:16)
[2016-10-30] MEDS: Furosemide 40 MG TABLET PO SCH ×2 (08:30→15:22)
[2016-10-30] MEDS: Aspirin 81 MG TAB.CHEW PO SCH (08:30)
[2016-10-30] MEDS: Niacin (24 HR) 500 MG TAB.ER.24H PO SCH (08:30)
[2016-10-30] MEDS: OXcarbazepine 150 MG TABLET PO SCH (08:31)
[2016-10-30] MEDS: Budesonide/Formoterol 160/4.5 MDI IH SCH ×2 (09:29→21:02)
--- NOTE | 2016-10-30 13:59 | Psychiatry Progress Note ---
Date of Encounter: 10/30/16 Time of Encounter: 12:30 Subjective Interval history: Patient is seen for follow-up. Review of the staff notes indicates patient still manic and suicidal and homicidal statements and at the same time her behavior and interaction on the unit are not supporting those statements. Patient reported by the halfway as manipulative and later to go to the hospital and avoid her workshop. Patient had multiple admissions with similar presentations. She is compliant with medication, attending groups and activities and interacting appropriately with peers and staff. I discussed her case with the social research assistant and suggested inviting her keycase assembler from the halfway to attend a meeting with the patient to explain the benefits of hospitalization and when it is necessary and also maintaining medication and activities outside the hospital to keep the patient stable. mend worker will make necessary arrangements for this meeting and this should help in the future. Review of Systems Psychiatric: Reports: depression, anxiety, suicidal ideation, homicidal ideation , auditory hallucinations Objective: Exam Patient orientation: Yes Person, Yes Time, Yes Place Level of alertness: Alert Patient appearance: Appropriate, Well Groomed, Obese Behavior: calm, anxious Psychomotor activity: Normal Eye contact: Maintains Eye Contact Mood description: Euthymic/stable, Anxious Affect description: full range, incongruent with mood Speech pattern: Normal rate, Normal rhythm, Normal tone Speech volume: Normal Thought process: Linear, Goal Oriented Thought content: Yes Suicidal ideation, Yes Homicidal ideation, No Overt delusions Perceptual disturbances: Yes Auditory hallucinations, No Visual hallucinations Judgment: Limited Insight: Partial Results - Vital Signs Vital Signs: Temp Pulse Resp BP Pulse Ox 97.4 F L 60 18 116/71 99 10/30/16 09:00 10/30/16 09:00 10/30/16 09:00 10/30/16 09:00 10/27/16 02:33 Assessment and Plan (1) Schizoaffective disorder, bipolar type Current visit: Yes Status: Acute Plan: Continue hospitalization, Close observation, Suicide Precautions per unit protocol, Encourage participation in unit milieu, Group Therapy, Monitor sleep, Monitor appetite Additional Plan: mend worker will plan a meeting including keycase assembler from the halfway to discuss and explain utilization of hospital treatments and educating the patient on using resources outside the hospital to maintain her mental health's stability. This will help in the future to keep the hospital as the last resort for treatments of acute conditions and not to be used as alternative to outpatient services. Risks, benefits, side effects, alternatives discussed w/pt: Yes Patient agreeable to treatment: Yes Consult Discharge Plan - Plan Additional Instructions: Dr. Jeff Mueller, psychiatrist, we will continue to see you monthly at the halfway. Discharge records should be faxed to 2 different numbers: [phone] and [phone]. Referrals: NO,PCP [Primary Care Provider] -
[2016-10-30] MEDS: Ziprasidone 20 MG CAPSULE PO SCH (21:03)
[2016-10-30] MEDS: clonazePAM 1 MG TABLET PO SCH (21:03)
[2016-10-31] MEDS: Aspirin 81 MG TAB.CHEW PO SCH (09:09)
[2016-10-31] MEDS: Furosemide 40 MG TABLET PO SCH (09:09)
[2016-10-31] MEDS: Niacin (24 HR) 500 MG TAB.ER.24H PO SCH (09:10)
[2016-10-31] MEDS: OXcarbazepine 150 MG TABLET PO SCH (09:10)
[2016-10-31] MEDS: Budesonide/Formoterol 160/4.5 MDI IH SCH (09:14)
[2016-10-31 09:16] VITALS: BP 119/66
--- NOTE | 2016-10-31 12:52 | Discharge Summary ---
Date of Encounter: 10/31/16 Time of Encounter: 12:44 Diagnosis - Discharge Diagnosis (1) Schizoaffective disorder, bipolar type Status: Acute Medications - Discharge Medications Prescriptions: Ziprasidone [Geodon] 40 mg PO HS #30 capsule Aspirin 81 mg PO DAILY 08/09/16 [History] Atorvastatin Calcium 80 mg PO HS 08/09/16 [History] ClonazePAM [Klonopin] 1 mg PO HS 08/09/16 [History] Docusate [Colace] 100 mg PO BID PRN 08/09/16 [History] Furosemide [Lasix] 40 mg PO BID 08/09/16 [History] Levothyroxine Sodium [Levoxyl] 175 mg PO QAM 08/09/16 [History] Losartan Potassium [Cozaar] 50 mg PO DAILY 08/09/16 [History] Meclizine HCl [Verticalm] 25 mg PO Q8H PRN 08/09/16 [History] Metoprolol [Lopressor] 50 mg PO BID 08/09/16 [History] Niacin [Niacor] 500 mg PO BID 08/09/16 [History] Nitroglycerin [Nitrostat] 0.4 mg PO Q5M PRN 08/09/16 [History] Oxcarbazepine 600 mg PO DAILY 08/09/16 [History] Acetaminophen [Tylenol] 325 mg PO Q6H PRN 09/25/16 [History] Albuterol Neb [Proventil Neb] 2.5 mg IH Q4H PRN 09/25/16 [History] Albuterol Sulfate [Ventolin Hfa] 2 puff IH Q4H PRN 09/25/16 [History] Amantadine [Symmetrel] 100 mg PO BID 09/25/16 [History] Calcium Carbonate [Calcium] 500 mg PO DAILY 09/25/16 [History] Eucalyptus/Menthol [Cough Drops] 1 each MM Q2H PRN 09/25/16 [History] Ferrous Sulfate 325 mg PO DAILY 09/25/16 [History] Haloperidol Decanoate [Haldol Decanoate 100] 100 mg IM Q3W 09/25/16 [History] Ibuprofen [Motrin] 400 mg PO Q8H PRN 09/25/16 [History] Loperamide HCl [Anti-Diarrheal] 2 mg PO 8XD PRN 09/25/16 [History] Polyethylene Glycol 3350 [MiraLAX Powder Bulk 17.9 Oz] 17 gm PO DAILY 09/25/16 [ History] Saline Nasal [place] [[place] Nasal [place]] 2 spray NS Q2H PRN 09/25/16 [History] Beclomethasone Diprop 80mcg [QVAR 80 mcg] 2 puff IH BID 10/27/16 [History] Paroxetine [Paxil] 30 mg PO DAILY 10/27/16 [History] Budesonide/Formoterol 160/4.5 [Symbicort 160/4.5] 2 puff IH BIDRESP inhaler 11/13 [Rx] Ziprasidone [Geodon] 40 mg PO HS #30 capsule 10/31/16 [Rx] Allergies clemastine [From Tavist] Adverse Reaction (Verified 06/11/16 21:23) Unknown milk Adverse Reaction (Verified 06/11/16 21:23) Unknown pseudoephedrine [From Tavist] Adverse Reaction (Verified 06/11/16 21:23) Unknown Provider Date of admission: 10/27/16 03:25 Primary care physician: PCP MARTI Discharging clinician: Pedro Padilla Assessment and Plan - Patient/Caregiver Discharge Instructions Activity: resume usual activities as tolerated Diet: regular diet Additional Instructions: Dr. Jeff Mueller, psychiatrist, we will continue to see you monthly at the longterm. Discharge records should be faxed to 2 different numbers: and [phone]. - Follow up Plan Follow up with: NO,PCP [Primary Care Provider] - Functional capacity at discharge: independent ambulation Overall status at discharge: Stable Disposition: Home, Self-Care Hospital Course Hospital course: Ms. Duncan is a 56 year old female admitted for evaluation out of 3 hallucination suicidal or homicidal ideation. Patient is well known to us from previous admissions, for details please see H&P This is one of several admissions for this patient presents with complaints of auditory hallucination and suicidal ideation, patient is reported by the longterm as manipulative and reporting symptoms that required hospitalization either behavioral health or medical patient reported that she can complain of chest pain so she can be admitted to the hospital and avoids workshop in addition she seek more attention from her family. On the units patient continued to her medication she participated in groups she seeks attention and and assistance with ADLs that she is capable of doing by herself. She complained of daytime sedation and Geodon dose was reduced to 40 mg at bedtime. Prior to discharge patient was medically stable, denied suicidal ideation and denied any side effects to medication. cabinet worker arranged a meeting to include longterm staff and myself to review patient's treatment plan and future hospitalizations that may not be necessary as a results of patient's manipulation. It was recommended that the staff at the longterm assess patient complaints and provide one-on-one monitoring in addition to contacting psychiatrists who follows her and ask for his recommendation. The goal of these recommendation is to avoids unnecessary hospitalization. - Time Spent with Patient Total time spent providing and/or coordinating discharge services: Greater than 30 minutes Quality - Multiple Antipsychotics Patient discharged on 2 or more antipsychotic medications: No Procedures - Procedures Procedures: Medication Management, Crisis Stabilization, Supportive Therapy, Group Therapy, Psychoeducational Therapy Mental Status Exam - Mental Status Exam Patient orientation: Yes Person, Yes Time, Yes Place Level of alertness: Alert Patient appearance: Appropriate, Well Groomed, Obese Behavior: calm, anxious Psychomotor activity: Normal Eye contact: Maintains Eye Contact Mood description: Euthymic/stable, Anxious Affect description: full range, incongruent with mood Speech pattern: Normal rate, Normal rhythm, Normal tone Speech Volume: Normal Thought process: Linear, Goal Oriented Thought Content: No Suicidal ideation, No Homicidal ideation, No Overt delusions Perceptual Disturbances: Yes Auditory hallucinations, No Visual hallucinations Judgment: Limited Insight: Partial
== END 2016-10-31 15:00 | disposition home or self-care (01) | DRG 750 ==
LOC: EMEROO 21:32 → 1ANU 10-27 03:25
PROVIDERS: ADMIT Psychiatry & Neurology Psychiatry; ATTEND Psychiatry & Neurology Psychiatry

== ENCOUNTER 2017-02-22 21:05 | Observation (INO) ==
[2017-02-22] MEDS ORDERED: 0.9 % Sodium Chloride 500 ML IVC ONE (21:08)
[2017-02-22] MEDS ORDERED: *HR* Morphine 2 MG/ML SYRINGE IVP ONE (21:08)
[2017-02-22] MEDS ORDERED: Ondansetron 4 MG/2 ML VIAL IVP ONE (21:08)
[2017-02-22 21:38] LABS: Basophils # 0.1 K/mcL (0.0-0.2); Basophils % 0.5 %; Eosinophils # 0.3 K/mcL (0.0-0.6); Eosinophils % 3.5 %; Hematocrit 38.5 % (35.3-44.9); Hemoglobin 12.8 g/dL (11.5-15.4); Immature Granulocytes % 0.2 % (0-4); Lymphocytes # 2.9 K/mcL (0.6-4.6); Lymphocytes % 31.5 %; Mean Corpuscular HGB Conc 33.2 g/dL (31.6-35.5); Mean Corpuscular Hemoglobin 30.5 pg (28.0-33.3); Mean Corpuscular Volume 91.9 fL (83.0-100.0); Mean Platelet Volume 8.2 fL (9.4-12.4); Monocytes # 0.7 K/mcL (0.0-1.3); Monocytes % 7.9 %; Neutrophils # 5.2 K/mcL (1.6-8.9); Platelet Count 239 K/mcL (140-400); Red Blood Count 4.19 M/mcL (3.82-4.97); Red Cell Distribution Width 14.8 % (11.5-14.5); Segmented Neutrophils % 56.4 %
[2017-02-22 21:39] LABS: INR 1.1; Prothrombin Time 11.5 Seconds (9.4-12.1)
[2017-02-22 21:42] LABS: Activated Partial Thrombo Time 33.6 Seconds (26.0-36.0)
[2017-02-22 21:45] LABS: BUN/Creatinine Ratio 16 (6-26); Blood Urea Nitrogen 12 mg/dL (7-20); Calcium 9.8 mg/dL (8.6-10.8); Carbon Dioxide 31 mEq/L (19-29); Chloride 98 mEq/L (98-109); Glucose 100 mg/dL (70-99); Osmolality,Calculated 284 (280-300); Potassium 3.9 mEq/L (3.5-4.5); Sodium 137 mEq/L (136-145); eGFR For African Americans > 60 (> 60); eGFR For Non-African Americans > 60 (> 60)
--- NOTE | 2017-02-22 23:12 | Emergency Department Note ---
Disposition Clinical Impression: Chest pain Qualifiers: Chest pain type: unspecified Qualified Code(s): R07.9 - Chest pain, unspecified Disposition: Admitted As Inpatient Condition: Good Forms: ED Satisfaction Letter Time of Disposition: 23:52 Chest Pain HPI - General Chief Complaint: ED Chest Pain Stated Complaint: Chest Pain Time Seen by Provider: 02/22/17 21:08 Source: patient, EMS Limitations: no limitations - History of Present Illness Severity scale (1-10): 10 - Related Data Home Medications Medication Instructions Recorded Confirmed Aspirin 81 mg PO DAILY 08/09/16 10/27/16 Atorvastatin Calcium 80 mg PO HS 08/09/16 10/27/16 Docusate [Colace] 100 mg PO BID PRN 08/09/16 10/27/16 Furosemide [Lasix] 40 mg PO BID 08/09/16 10/27/16 Levothyroxine Sodium [Levoxyl] 175 mg PO QAM 08/09/16 10/27/16 Losartan Potassium [Cozaar] 50 mg PO DAILY 08/09/16 10/27/16 Meclizine HCl [Verticalm] 25 mg PO Q8H PRN 08/09/16 10/27/16 Metoprolol [Lopressor] 50 mg PO BID 08/09/16 10/27/16 Niacin [Niacor] 500 mg PO BID 08/09/16 10/27/16 Nitroglycerin [Nitrostat] 0.4 mg PO Q5M PRN 08/09/16 10/27/16 OXcarbazepine [Oxcarbazepine] 600 mg PO DAILY 08/09/16 10/27/16 clonazePAM [Klonopin] 1 mg PO HS 08/09/16 10/27/16 Acetaminophen [Tylenol] 325 mg PO Q6H PRN 09/25/16 10/27/16 Albuterol Neb [Proventil Neb] 2.5 mg IH Q4H PRN 09/25/16 10/27/16 Albuterol Sulfate [Ventolin Hfa] 2 puff IH Q4H PRN 09/25/16 10/27/16 Amantadine [Symmetrel] 100 mg PO BID 09/25/16 10/27/16 Calcium Carbonate [Calcium] 500 mg PO DAILY 09/25/16 10/27/16 Eucalyptus/Menthol [Cough Drops] 1 each MM Q2H PRN 09/25/16 10/27/16 Ferrous Sulfate 325 mg PO DAILY 09/25/16 10/27/16 Haloperidol Decanoate [Haldol 100 mg IM Q3W 09/25/16 10/27/16 Decanoate 100] Ibuprofen [Motrin] 400 mg PO Q8H PRN 09/25/16 10/27/16 Loperamide HCl [Anti-Diarrheal] 2 mg PO 8XD PRN 09/25/16 10/27/16 Polyethylene Glycol 3350 [MiraLAX 17 gm PO DAILY 09/25/16 10/27/16 Powder Bulk 17.9 Oz] Saline Nasal [place] [[place] Nasal 2 spray NS Q2H PRN 09/25/16 10/27/16 [place]] Beclomethasone Diprop 80mcg [QVAR 2 puff IH BID 10/27/16 10/27/16 80 mcg] Paroxetine [Paxil] 30 mg PO DAILY 10/27/16 10/27/16 Previous Rx's Medication Instructions Recorded Budesonide/Formoterol 160/4.5 2 puff IH BIDRESP inhaler 10/31/16 [Symbicort 160/4.5] Ziprasidone [Geodon] 40 mg PO HS #30 capsule 10/31/16 Allergies Allergy/AdvReac Type Severity Reaction Status Date / Time clemastine [From Tavist] AdvReac Unknown Verified 06/11/16 21:23 milk AdvReac Unknown Verified 06/11/16 21:23 pseudoephedrine [From Tavist] AdvReac Unknown Verified 06/11/16 21:23 Chest Pain PMH - Past Medical History Medical history: Reports: asthma, COPD, diabetes, hyperlipidemia, hypertension, other Surgical history: Reports: , cholecystectomy, other Psychiatric history: Reports: bipolar, schizophrenia, previous psychiatric hospitalization - Social History Smoking Status: Former smoker Alcohol use: Reports: none Drug use: Reports: none Physical Exam - General Limitations: no limitations General appearance: alert - Head Head exam: atraumatic, normocephalic, normal inspection - ENT ENT exam: normal exam, normal oropharynx, mucous membranes moist - Neck Neck exam: Present: normal inspection, full ROM, trachea midline. Absent: tenderness, meningismus, lymphadenopathy - Chest Chest inspection: Present: normal inspection, symmetric chest wall rise. Absent : tenderness - Respiratory Respiratory exam: Present: normal lung sounds bilaterally. Absent: respiratory distress, accessory muscle use - Cardiovascular Cardiovascular exam: Present: normal rhythm, bradycardia, normal heart sounds - Abdominal Exam Abdominal exam: Present: soft, Non-Tender, normal bowel sounds. Absent: tenderness, distention, guarding, rebound, rigidity, Lopez's sign, Rovsing's sign, tenderness at McBurney's Point - Extremities Exam Extremities exam: Present: normal inspection, full ROM, normal capillary refill. Absent: tenderness - Back Exam Back exam: Present: normal inspection, full ROM. Absent: tenderness, CVA tenderness (R), CVA tenderness (L) - Neurological Exam Neurological exam: Present: alert, oriented X3, CN II-XII intact, normal gait - Skin Skin exam: Present: warm, dry, intact, normal color Course Course Narrative: Patient seen and examined the time of arrival. See history of present illness. 56-year-old female presents to the emergency room for evaluation of chest pain. Onset this morning at 8 AM. Patient has multiple medical issues including hypertension hyperlipidemia and diabetes. She has complaints of chest pain in the past based on the chart review at this time she also has psychiatric issues. She is from a jail today. They tried nitroglycerin in transit with no relief to her symptoms. Aspirin was given in transit as well. On presentation here patient describing chest pain in the midsternal radiation up to the left upper extremity. She has never had cardiac catheterization or cardiac intervention completed. Based on the symptoms and presentation patient does not show any acute signs of coronary syndrome issues at this point. EKG collected and reviewed showing normal sinus rhythm with no acute ST segment changes. This was compared to an EKG on 06/11/16. Patient will have pain medication provided here since symptoms were not controlled with nitroglycerin in transit. Fluids aspirin EKG chest x-ray CBC chemistry and troponin to be checked in the emergency room. Disposition pending treatment course. Fluids nausea medication given as needed. Patient does have psychiatric history a 72 is compounding her symptom presentation. Disposition pending this evaluation treatment course - Reevaluation(s) Reevaluation #1: Patient has negative troponin. EKG reviewed again is negative. Chest x-ray stable. Labs are within normal limits at this time. Urinalysis is still pending but does not change the disposition. Patient otherwise is resting in the bed at this time she is complaining of chest pain. Repeat dose of pain medication to be given. Symptoms were initially controlled morphine according the patient. It is difficult to discern whether this is cardiac in nature or psychologic. Because of this patient will be admitted for acute coronary syndrome rule out and evaluation. Hospitalist was paged and the disposition was reviewed with the on-call hospitalist Dr. Harper the presentation symptoms and medical intervention. No other recommendations or concerns at this time. He understands this is low risk cardiac. Patient does have risk factors with negative EKG and troponin. Admission process to be completed this time. We will continue monitoring in emergency room his admission process is completed Time: 23:50 Vital Signs Temperature 97.5 F L 02/22/17 21:07 Pulse Rate 54 02/22/17 21:07 Respiratory Rate 18 02/22/17 21:07 Blood Pressure 117/68 02/22/17 21:07 O2 Sat by Pulse Oximetry 99 02/22/17 21:07 Temperature 97.5 F L 02/22/17 21:07 Pulse Rate 56 02/22/17 22:53 Respiratory Rate 18 02/22/17 22:53 Blood Pressure 127/67 02/22/17 22:53 O2 Sat by Pulse Oximetry 96 02/22/17 22:53 Oxygen Delivery Oxygen Delivery Room Air Chest Pain - MDM Narrative Medical decision making narrative: Chest pain, ACS rule out - Medical Records Medical records reviewed: Yes I reviewed the patient's medical records. - Lab Data Lab results reviewed: Yes I reviewed the patient's lab results. Result diagrams: 02/22/17 21:28 02/22/17 21:28 Lab Results 02/22/17 02/22/17 02/22/17 Range/Units 21:28 21:28 21:28 WBC 9.3 (4.3-11.1) K/mcL RBC 4.19 (3.82-4.97) M/mcL Hgb 12.8 (11.5-15.4) g/dL Hct 38.5 (35.3-44.9) % MCV 91.9 (83.0-100.0) fL MCH 30.5 (28.0-33.3) pg MCHC 33.2 (31.6-35.5) g/dL RDW 14.8 H (11.5-14.5) % Plt Count 239 (140-400) K/mcL MPV 8.2 L (9.4-12.4) fL Immature Gran % 0.2 (0-4) % Seg Neutrophils % 56.4 % Lymphocytes % 31.5 % Monocytes % 7.9 % Eosinophils % 3.5 % Basophils % 0.5 % Neutrophils # 5.2 (1.6-8.9) K/mcL Lymphocytes # 2.9 (0.6-4.6) K/mcL Monocytes # 0.7 (0.0-1.3) K/mcL Eosinophils # 0.3 (0.0-0.6) K/mcL Basophils # 0.1 (0.0-0.2) K/mcL PT 11.5 (9.4-12.1) Seconds INR 1.1 APTT 33.6 (26.0-36.0) Seconds Sodium (136-145) mEq/L Potassium (3.5-4.5) mEq/L Chloride (98-109) mEq/L Carbon Dioxide (19-29) mEq/L BUN (7-20) mg/dL Creatinine (0.57-1.11) mg/dL Est GFR ( Amer) (> 60) Est GFR (Non-Af Amer) (> 60) BUN/Creatinine Ratio (6-26) Glucose (70-99) mg/dL Calculated Osmolality (280-300) Calcium (8.6-10.8) mg/dL Troponin I (0-0.03) ng/mL B-Natriuretic Peptide 62 (0-100) pg/mL 02/22/17 02/22/17 Range/Units 21:28 21:28 WBC (4.3-11.1) K/mcL RBC (3.82-4.97) M/mcL Hgb (11.5-15.4) g/dL Hct (35.3-44.9) % MCV (83.0-100.0) fL MCH (28.0-33.3) pg MCHC (31.6-35.5) g/dL RDW (11.5-14.5) % Plt Count (140-400) K/mcL MPV (9.4-12.4) fL Immature Gran % (0-4) % Seg Neutrophils % % Lymphocytes % % Monocytes % % Eosinophils % % Basophils % % Neutrophils # (1.6-8.9) K/mcL Lymphocytes # (0.6-4.6) K/mcL Monocytes # (0.0-1.3) K/mcL Eosinophils # (0.0-0.6) K/mcL Basophils # (0.0-0.2) K/mcL PT (9.4-12.1) Seconds INR APTT (26.0-36.0) Seconds Sodium 137 (136-145) mEq/L Potassium 3.9 (3.5-4.5) mEq/L Chloride 98 (98-109) mEq/L Carbon Dioxide 31 H (19-29) mEq/L BUN 12 (7-20) mg/dL Creatinine 0.75 (0.57-1.11) mg/dL Est GFR ( Amer) > 60 (> 60) Est GFR (Non-Af Amer) > 60 (> 60) BUN/Creatinine Ratio 16 (6-26) Glucose 100 H (70-99) mg/dL Calculated Osmolality 284 (280-300) Calcium 9.8 (8.6-10.8) mg/dL Troponin I 0.00 (0-0.03) ng/mL B-Natriuretic Peptide (0-100) pg/mL - Radiology Data Radiology results reviewed: Yes I reviewed the patient's radiology results. Wrist x-ray is negative for acute pathology - EKG Data EKG attestation: Yes I reviewed and interpreted this EKG. EKG shows normal: sinus rhythm, axis, intervals, QRS complexes, ST-T waves Rate: normal Rhythm: NSR [place]/QRS: normal When compared to previous EKG there are: no significant changes Interpretation: no acute changes, unchanged when compared to prior tracing (date ) (06/11/16) Heart Score - Score History: Slightly Suspicious EKG: Normal Age: 45-65 Risk Factors: Equal/Greater than 3 risk factor or history of atherosclerotic disease Troponin: Less than normal limit HEART Score Total: 3
[2017-02-22] MEDS ORDERED: *HR* HYDROmorphone (PF) 1 MG/ML SYRINGE IVP ONE (23:28)
--- NOTE | 2017-02-23 02:43 | Internal Med History&Physical ---
Date of Encounter: 02/23/17 Time of Encounter: 02:41 Assessment and Plan (1) Chest pain Current visit: Yes Status: Acute Atypical chest pain in a patient with risk factors for CAD including family history, hypertension and hyperlipidemia and with reported nonobstructive CAD diagnosed by cardiac catheterization. Plan: We will place the patient in observation. Trend troponin. Cardiac monitoring. Stress test in the morning. Qualifiers: Chest pain type: precordial pain Qualified Code(s): R07.2 - Precordial pain (2) COPD (chronic obstructive pulmonary disease) Current visit: No Status: Chronic Inhaled bronchodilators as needed. Qualifiers: COPD type: chronic bronchitis Qualified Code(s): J41.0 - Simple chronic bronchitis (3) HTN (hypertension) Current visit: No Status: Chronic Continue home meds. Qualifiers: Hypertension type: essential hypertension Qualified Code(s): I10 - Essential (primary) hypertension (4) DM2 (diabetes mellitus, type 2) Current visit: No Status: Chronic Diabetic diet. Insulin sliding scale. Check hemoglobin A1c. Qualifiers: Diabetes mellitus complication status: without complication Diabetes mellitus assisted insulin use: without assisted use Qualified Code(s): E11.9 - Type 2 diabetes mellitus without complications (5) Morbid obesity Current visit: No Status: Chronic Outpatient weight loss regimen. (6) JAY on CPAP Current visit: No Status: Chronic We will provide CPAP therapy during this hospitalization. (7) DVT prophylaxis Current visit: Yes Status: Acute She is sedentary and morbidly obese and therefore at risk for DVT. We will provide prophylaxis with Lovenox while hospitalized. Internal Medicine - H&P: HPI Chief complaint: Chest pain Admitted From: Emergency Dept Plans for Post Hospital Care: Home History of present illness: Ms. Fam is a 56 year old female with past medical history significant for morbid obesity, COPD, JAY who presented to the hospital from nursing home for evaluation of chest pain. States that chest pain started this morning and is located in the substernal area and is 10/10 in intensity, sharp in nature, without aggravating or alleviating factors. Without associated diaphoresis, nausea and palpitations. No shortness of breath. Workup in the emergency department was unrevealing. Review of systems positive for chronic back pain and shoulder pain. Otherwise negative Family history positive for acute PR and patient's father who at age 54. Past Med Surg Social Fam HX - Past Medical History Medical history: asthma, COPD, diabetes, hyperlipidemia, hypertension, other Psychiatric history: bipolar, schizophrenia, previous psychiatric hospitalization - Past Surgical History Surgical History: , cholecystectomy, other - Social History Smoking Status: Former smoker Smokeless Tobacco Status: No Alcohol use: none Drug use: none - Family History Mother Living Status: Still Living Hx Family Cardiac Disorders: Yes Hx Family Endocrine Disorder: Yes Internal Medicine - H&P: Meds Aspirin 81 mg PO DAILY 08/09/16 [History] Atorvastatin Calcium 80 mg PO HS 08/09/16 [History] Docusate [Colace] 100 mg PO BID PRN 08/09/16 [History] Furosemide [Lasix] 40 mg PO BID 08/09/16 [History] Levothyroxine Sodium [Levoxyl] 175 mg PO QAM 08/09/16 [History] Losartan Potassium [Cozaar] 50 mg PO DAILY 08/09/16 [History] Meclizine HCl [Verticalm] 25 mg PO Q8H PRN 08/09/16 [History] Metoprolol [Lopressor] 50 mg PO BID 08/09/16 [History] Niacin [Niacor] 500 mg PO BID 08/09/16 [History] Nitroglycerin [Nitrostat] 0.4 mg PO Q5M PRN 08/09/16 [History] OXcarbazepine [Oxcarbazepine] 600 mg PO DAILY 08/09/16 [History] clonazePAM [Klonopin] 1 mg PO HS 08/09/16 [History] Acetaminophen [Tylenol] 325 mg PO Q6H PRN 09/25/16 [History] Albuterol Neb [Proventil Neb] 2.5 mg IH Q4H PRN 09/25/16 [History] Albuterol Sulfate [Ventolin Hfa] 2 puff IH Q4H PRN 09/25/16 [History] Amantadine [Symmetrel] 100 mg PO BID 09/25/16 [History] Calcium Carbonate [Calcium] 500 mg PO DAILY 09/25/16 [History] Eucalyptus/Menthol [Cough Drops] 1 each MM Q2H PRN 09/25/16 [History] Ferrous Sulfate 325 mg PO DAILY 09/25/16 [History] Haloperidol Decanoate [Haldol Decanoate 100] 100 mg IM Q3W 09/25/16 [History] Ibuprofen [Motrin] 400 mg PO Q8H PRN 09/25/16 [History] Loperamide HCl [Anti-Diarrheal] 2 mg PO 8XD PRN 09/25/16 [History] Polyethylene Glycol 3350 [MiraLAX Powder Bulk 17.9 Oz] 17 gm PO DAILY 09/25/16 [ History] Saline Nasal [place] [[place] Nasal [place]] 2 spray NS Q2H PRN 09/25/16 [History] Beclomethasone Diprop 80mcg [QVAR 80 mcg] 2 puff IH BID 10/27/16 [History] Paroxetine [Paxil] 30 mg PO DAILY 10/27/16 [History] Budesonide/Formoterol 160/4.5 [Symbicort 160/4.5] 2 puff IH BIDRESP inhaler 11/13 [Rx] Ziprasidone [Geodon] 40 mg PO HS #30 capsule 10/31/16 [Rx] Allergies clemastine [From Tavist] Adverse Reaction (Verified 06/11/16 21:23) Unknown milk Adverse Reaction (Verified 06/11/16 21:23) Unknown pseudoephedrine [From Tavist] Adverse Reaction (Verified 06/11/16 21:23) Unknown All Systems PM: A 10-system review of systems was performed and is negative for pertinent findings except as documented above in the HPI. - Constitutional Vitals: Temp Pulse Resp BP Pulse Ox 97.7 F 56 18 97/56 99 02/23/17 02:36 02/23/17 02:36 02/23/17 02:36 02/23/17 02:36 02/23/17 02:36 General appearance: Present: A&O X 3, morbidly obese - Respiratory Respiratory exam: Present: CTAB. Absent: accessory muscle use, rales, rhonchi, wheezes - Cardiovascular Cardiovascular exam: Present: RRR, +S1, +S2. Absent: diastolic murmur, gallop, rubs, systolic murmur - GI/Abdominal GI/Abdominal exam: Present: normal bowel sounds, soft, no peritoneal signs. Absent: distended, tenderness - Extremities Exam Extremities exam: Present: warm, radial pulses palpable and symetrical. Absent : calf tenderness, cyanotic, pedal edema - Neurological Exam Neurological exam: Present: CN II-XII intact, oriented X3, no focal deficits. Absent: pronater drift, facial droop, speech deficit - Skin Skin exam: Present: dry, intact Internal Med - H&P Results - Labs CBC & Chem 7: 02/22/17 21:28 02/22/17 21:28 - EKG Data -: EKG Interpreted by Myself EKG shows normal: sinus rhythm, axis, intervals, QRS complexes, ST-T waves Rate: normal
[2017-02-23] MEDS ORDERED: Naloxone 0.4 MG/ML INJ IVP PRN (02:47)
[2017-02-23] MEDS ORDERED: Ipratropium/Albuterol Neb 3 ML IH PRN (02:56)
[2017-02-23] MEDS: *HR* OxyCODONE Immed Rel 5 MG TABLET PO PRN ×3 (03:29→19:49)
[2017-02-23 04:36] LABS: Hematocrit 36.7 % (35.3-44.9); Hemoglobin 11.6 g/dL (11.5-15.4); Mean Corpuscular HGB Conc 31.6 g/dL (31.6-35.5); Mean Corpuscular Hemoglobin 29.7 pg (28.0-33.3); Mean Corpuscular Volume 94.1 fL (83.0-100.0); Mean Platelet Volume 8.1 fL (9.4-12.4); Platelet Count 211 K/mcL (140-400); Red Cell Distribution Width 14.8 % (11.5-14.5)
[2017-02-23] MEDS: *HR* Enoxaparin 40 MG/0.4 ML SYRINGE SQ SCH (06:15)
[2017-02-23] MEDS ORDERED: Regadenoson 0.4 MG/5 ML SYRINGE IVP ONE (06:34)
[2017-02-23 10:56] LABS: Bilirubin,Urine Negative (Negative); Blood,Urine Negative (Negative); Clarity,Urine Clear (Clear); Color,Urine Yellow (Yellow); Glucose,Urine (UA) Normal (Normal); Ketones,Urine Negative (Negative); Leukocyte Esterase,Urine Trace (Negative); Nitrite,Urine Negative (Negative); Protein,Urine Negative (Neg-Trace); Specific Gravity,Urine 1.009 (1.010-1.025); Urobilinogen,Urine Normal (Normal)
[2017-02-23 11:00] LABS: Bacteria,Urine None Seen per hpf (None-Few); Hyaline Casts,Urine None Seen per lpf (None-Few); RBC,Urine 0-3 per hpf (0-3); Squamous Epithelial Cell,Urine Many per lpf (None-Few); WBC,Urine 0-3 per hpf (0-3)
[2017-02-23 11:10] LABS: BUN/Creatinine Ratio 13 (6-26); Blood Urea Nitrogen 9 mg/dL (7-20); Calcium 9.1 mg/dL (8.6-10.8); Carbon Dioxide 26 mEq/L (19-29); Chloride 106 mEq/L (98-109); Chol/HDL Ratio 2.5 (0-4.9); Cholesterol 157 mg/dL (< 200); Glucose 99 mg/dL (70-99); HDL Cholesterol 62 mg/dL (40-59); LDL Cholesterol,Calculated 68 mg/dL (0-99); Magnesium 2.3 mg/dL (1.6-2.6); Osmolality,Calculated 289 (280-300); Sodium 140 mEq/L (136-145); Triglycerides 137 mg/dL (< 150); eGFR For African Americans > 60 (> 60); eGFR For Non-African Americans > 60 (> 60)
[2017-02-23] MEDS: *HR* Morphine 2 MG/ML SYRINGE IVP PRN (13:04)
--- NOTE | 2017-02-23 16:15 | Electrocardiograph Report ---
[address] [address] Test Date: 2017-02-22 Pat Name: Taylor Fam Department: 103 Room: 3B Gender: F Oncology Pharmacist: : 1960 Requested By: Dick Chaudhry Order Number: [id number] Reading MD: Tosha Pinedo Measurements Intervals [place] Rate: 61 P: 45 MA: 165 QRS: 30 QRSD: 98 T: 51 QT: 420 QTc: 422 Interpretive Statements SINUS RHYTHM Electronically Signed On 02-23-2017 16:14:13 EDT by Tosha Pinedo
--- NOTE | 2017-02-23 17:09 | Event Note ---
Date of Encounter: 02/23/17 Time of Encounter: 14:00 Patient seen and examined. On examination, patient sitting upright on the side of her bed watching television. Patient continued to endorse chest pain. Chest x-ray negative. Echocardiogram unremarkable with ejection fraction of 60- 65%. Stress test will be a two day stress test. Troponins negative 2. On examination, chest pain is atypical. Low suspicion for acute coronary syndrome , will await second part of stress test. Patient also noted to have yeast infections underneath each breast, will add topical treatment. Patient stating that she is anxious and feels as if she must have a stroke or pneumonia or gallbladder issue or an ulcer or a heart attack. Reassured at this time, we will continue to trend her symptoms. Mood and affect relatively stable during my interaction with her however shortly thereafter, her nurses informed me that the patient started to hallucinate and started to become suicidal and homicidal. She has a lengthy psychiatric history with multiple inpatient admissions to psychiatry. We will place a sitter at this time and monitor closely. ITS Impressions Chest X-Ray 02/22/17 21:08 IMPRESSION: Clear lungs. D/ / David Higginbotham MD / David Higginbotham MD Interpreting Provider: David Higginbotham MD Echocardiogram impressions: Normal LV systolic function, LVEF 60-65%. Normal left ventricular diastolic function. Normal right ventricular size and function. No significant valvular dysfunction.
[2017-02-23] MEDS ORDERED: MOM Conc 10 ML UD.LIQ PO PRN (17:46)
[2017-02-23] MEDS ORDERED: Ibuprofen 400 MG TABLET PO PRN (17:46)
[2017-02-23] MEDS ORDERED: Hydrocortisone Rectal 2.5% CRM 28 GM TUBE RC PRN (17:46)
[2017-02-23] MEDS ORDERED: Albuterol 2.5 MG/3 ML NEBULIZER IH PRN (17:46)
[2017-02-23] MEDS ORDERED: Saline Nasal Spray 44 ML BOTTLE NS PRN (17:46)
[2017-02-23] MEDS: OXcarbazepine 150 MG TABLET PO SCH (18:22)
[2017-02-23] MEDS: Budesonide/Formoterol 160/4.5 MDI IH SCH (20:07)
[2017-02-23] MEDS: clonazePAM 1 MG TABLET PO SCH (20:50)
[2017-02-23] MEDS: Ziprasidone 20 MG CAPSULE PO SCH (20:50)
[2017-02-23] MEDS: Niacin (24 HR) 500 MG TAB.ER.24H PO SCH (20:50)
[2017-02-23] MEDS: Nystatin Cream 15 GM TUBE TP SCH (20:59)
[2017-02-23] MEDS: Acetaminophen 325 MG TABLET PO PRN (23:21)
[2017-02-24 05:36] LABS: Albumin 3.2 g/dL (3.5-5.0); Albumin/Globulin Ratio 0.9 (1.1-2.2); Bilirubin,Direct 0.1 mg/dL (0.0-0.5); Bilirubin,Indirect 0.2 mg/dL (0.0-1.2); Bilirubin,Total 0.3 mg/dL (0.2-1.2); Globulin 3.4 g/dL (2.4-3.5); Total Protein 6.6 g/dL (6.0-8.3)
[2017-02-24] MEDS: *HR* Enoxaparin 40 MG/0.4 ML SYRINGE SQ SCH (06:15)
[2017-02-24] MEDS: Budesonide/Formoterol 160/4.5 MDI IH SCH ×2 (10:07→22:45)
[2017-02-24] MEDS: Aspirin 81 MG TAB.CHEW PO SCH (10:27)
[2017-02-24] MEDS: Niacin (24 HR) 500 MG TAB.ER.24H PO SCH ×2 (10:27→20:53)
[2017-02-24] MEDS: Nystatin Cream 15 GM TUBE TP SCH ×2 (10:28→20:55)
[2017-02-24] MEDS: OXcarbazepine 150 MG TABLET PO SCH (10:28)
--- NOTE | 2017-02-24 10:40 | Nuclear Medicine Stress Report ---
Regadenoson Nuclear 2 day Name: Taylor Fam Date of Study: 02/23/2017 Date: 1960 Ht: 59.0 in Medical Record#: [id number] Age: 56 Wt: 278.0 lb Gender: Female Order #: [id number] Location: [facility] Room: [facility] Supervising Provider: Danial Drake CNP Ordering Physician: Amparo Grace CNP Primary Care Physician: Kamilah Ochoa MD Stress Technologist: Maribel Guevara RRT,[facility] Escalator Attendant: Lan Tellez Indications: Chest Pain, Chest Pain Impression: Small inferoapical defect that worsens with stress, cannot ruleout mild ischemia. SDS 2 Pharmacologic ECG was non diagnostic for ischemia. Patient had no chest pain with stress. Normal hemodynamic response. No arrhythmias noted with stress. The LV is not dilated. Gated EF = 61%. No diagnostic high risk features on this stress test Ordering team/cardiology consultation notified. History: Hypertension Diabetes Hypercholesteremia Stress Test Summary: Stress Test Type: Pharmacologic Regadenoson 0.4mg/5ml given IV Baseline Information: Initial Heart Rate: 62 Blood Pressure: 100/62 Stress Information: Test Terminated Due to (primary): As per protocol Maximum Blood Pressure: 104/50 Maximum Heart Rate: 77 Percent Maximum Heart Rate Achieved: 46 Double Product: 8008 METS Reached: 1 Symptoms: No symptoms Nuclear Summary: SPECT myocardial perfusion imaging using Tc99m Sestamibi given intravenously was performed at rest and following cardiac stress testing. The resting images were obtained following initial dose of 31.9 mCi. Following stress an additional dose of 32.3 mCi was given at peak exercise or 30 seconds post regadenoson infusion. Medication Given: Time Medication Dose Units Route NaCl 0.9% 250 ml IV Findings: Study Quality * Study quality is average. Stress Note * Resting ECG demonstrated normal sinus rhythm. * No baseline arrhythmias were noted. * Pharmacologic stress ECG is non diagnostic for ischemia due to failure to reach target heartrate. * No arrhythmias were noted during stress. Hemodynamic responses * Normal hemodynamic responses to pharmacologic stress. Gated EF % * Gated EF = 61%. Left Ventricle * The left ventricle is not dilated. NORMALS * Normal wall motion. * All other segmental perfusion normal in stress. * All other segmental perfusion normal in rest. Apical Perfusion Rest * No evidence of uptake in apical septal segment. Inferior Perfusion Rest * The apical inferior segment shows a moderate reduction in perfusion. Inferior Perfusion Stress * The apical inferior segment shows severe reduction in perfusion. Updated by Selvin Rankin MD, FACC on 02/24/2017 10:33:19 AM electronically signed on 02/24/2017 10:36:42 AM with status of Final
[2017-02-24] MEDS: *HR* Morphine 2 MG/ML SYRINGE IVP PRN ×3 (11:31→20:55)
--- NOTE | 2017-02-24 11:58 | Cardiology Consult Note ---
Date of Encounter: 02/24/17 Time of Encounter: 12:00 Assessment and Plan (1) Abnormal stress test Current Visit: Yes Status: Acute Low risk stress test. Gave her options of medical management versus LHC. She elects to proceed with trial of medical management. If continued symptoms tomorrow, will consider LHC Sunday. (2) Chest pain Current Visit: Yes Status: Acute Ruled out for [place], stress test possible inferoapical ischemia. Low risk stress. Qualifiers: Chest pain type: precordial pain Qualified Code(s): R07.2 - Precordial pain (3) Mental retardation Current Visit: No Status: Acute Patient states she signs her own paper, her brother who is present is MPOA in case of emergencies. Discussion w patient/family: The assessment and plan as outlined above was discussed with the patient and/or family members who expressed understanding and agreement. All questions were answered. Thank you for involving us in the care of your patient. Please call with any questions. History of Present Illness Consult date: 02/24/17 Consult reason: chest pain/abnormal stress Chief complaint: chest pain/abnormal stress History of present illness: Ms. Fam is a 56 year old female with history of bipolar/schizophrenia living in a [facility] presenting with history of chronic waxing/waning chest discomfort which was severe on presentation. She notes it can last all day and is exacerbated by physical activity and improved with rest. It is retrosternal and does not endorse radiation. It can be associated with dyspnea. She is a suboptimal historian. She reports history of remote LHC without intervention. Several CV RF including DM, HTN, morbid obesity, premature family history, previous smoker. Past Med Surg Social Fam HX - Past Medical History Medical history: asthma, COPD, diabetes, hyperlipidemia, hypertension, other Psychiatric history: bipolar, schizophrenia, previous psychiatric hospitalization - Past Surgical History Surgical History: , cholecystectomy, other - Social History Smoking Status: Former smoker Smokeless Tobacco Status: No Alcohol use: none Drug use: none - Family History Mother Living Status: Still Living Hx Family Cardiac Disorders: Yes Hx Family Endocrine Disorder: Yes Medications and Allergies Aspirin 81 mg PO DAILY 08/09/16 [History] Atorvastatin Calcium 80 mg PO HS 08/09/16 [History] Docusate [Colace] 100 mg PO BID PRN 08/09/16 [History] Furosemide [Lasix] 40 mg PO BID 08/09/16 [History] Losartan Potassium [Cozaar] 50 mg PO DAILY 08/09/16 [History] Meclizine HCl [Verticalm] 25 mg PO Q8H PRN 08/09/16 [History] Metoprolol [Lopressor] 50 mg PO BID 08/09/16 [History] Niacin [Niacor] 500 mg PO BID 08/09/16 [History] Nitroglycerin [Nitrostat] 0.4 mg PO Q5M PRN 08/09/16 [History] OXcarbazepine [Oxcarbazepine] 600 mg PO QAM 08/09/16 [History] clonazePAM [Klonopin] 1 mg PO HS 08/09/16 [History] Acetaminophen [Tylenol] 325 mg PO Q6H PRN 09/25/16 [History] Albuterol Neb [Proventil Neb] 2.5 mg IH Q4H PRN 09/25/16 [History] Albuterol Sulfate [Ventolin Hfa] 2 puff IH Q4H PRN 09/25/16 [History] Amantadine [Symmetrel] 100 mg PO DAILY 09/25/16 [History] Eucalyptus/Menthol [Cough Drops] 1 each MM Q2H PRN 09/25/16 [History] Ferrous Sulfate 325 mg PO TID 09/25/16 [History] Haloperidol Decanoate [Haldol Decanoate 100] 100 mg IM Q3W 09/25/16 [History] Ibuprofen [Motrin] 400 mg PO Q8H PRN 09/25/16 [History] Loperamide HCl [Anti-Diarrheal] 2 mg PO 8XD PRN 09/25/16 [History] Polyethylene Glycol 3350 [MiraLAX Powder Bulk 17.9 Oz] 17 gm PO DAILY 09/25/16 [ History] Saline Nasal [place] [[place] Nasal [place]] 2 spray NS Q2H PRN 09/25/16 [History] Paroxetine [Paxil] 30 mg PO DAILY 10/27/16 [History] Budesonide/Formoterol 160/4.5 [Symbicort 160/4.5] 2 puff IH BIDRESP inhaler 11/13 [Rx] Ziprasidone [Geodon] 40 mg PO HS #30 capsule 10/31/16 [Rx] Calcium Carbonate/Vitamin D3 [Oyster Shell Calcium-Vit D Tab] 1 each PO DAILY [History] Hydrocortisone Rectal CRM [Proctosol-HC] 1 appl RC BID PRN 02/23/17 [History] Levothyroxine Sodium [Levo-T] 200 mcg PO DAILY 02/23/17 [History] Magnesium Hydroxide [Milk of Magnesia] 400 mg PO DAILY PRN 02/23/17 [History] Promethazine [Phenergan] 25 mg PO Q6HR PRN 02/23/17 [History] Allergies clemastine [From Tavist] Adverse Reaction (Verified 02/23/17 08:52) Unknown per ECF list milk Adverse Reaction (Verified 02/23/17 08:52) Unknown per ECF list pseudoephedrine [From Tavist] Adverse Reaction (Verified 02/23/17 08:52) Unknown per ECF list All Systems Review: A 10-system review of systems was performed and is negative for pertinent findings except as documented above in the HPI. - Constitutional Constitutional: no chills, no fever(s) - EENT Nose, mouth and throat: no bleeding gums, no epistaxis - Cardiovascular Cardiovascular: chest pain at rest, chest pain with exertion - Respiratory Respiratory: no hemoptysis, no wheezing - Gastrointestinal Gastrointestinal: no coffee ground emesis, no hematemesis - Genitourinary Genitourinary: no dysuria, no hematuria - Musculoskeletal Musculoskeletal: no arthralgias, no myalgias - Integumentary Integumentary: no erythema, no rash - Neurological Neurological: no dizziness, no numbness - Psychiatric Psychiatric: anxiety, no depression - Hematological/Lymphatic Hematologic/Lymphatic: no easy bleeding, no easy bruising Physical Examination Vital Signs, Last 4 Hours Temp Pulse Resp BP Pulse Ox 02/24/17 11:25 97.5 F L 54 16 113/62 97 02/24/17 10:09 14 98 02/24/17 10:00 98 General: Conversant HEENT: Atraumatic Neck: No JVD Cardiac: Reg Rate and Rhythm Lungs: Normal Breath Sounds Neuro: Alert and responsive Abdomen: Soft Skin: No rashes noted on visualized skin Musculoskeletal: No Chest Wall Tenderness Extremities: Other (trace edema) Results 02/23/17 04:04 02/23/17 10:34 Lab Results 02/24/17 05:01 Total Bilirubin 0.3 AST 12 ALT 10 Alkaline Phosphatase 127 H Lipase 70 - Imaging and Cardiology Stress Test: report reviewed, image reviewed (stress - inferoapical ischemia) - EKG Interpretation EKG results cardiology: personally reviewed Consult Discharge Plan - Plan Referrals: Kamilah Ochoa MD [Primary Care Provider] -
--- NOTE | 2017-02-24 17:09 | Internal Med Progress Note ---
Date of Encounter: 02/24/17 Time of Encounter: 15:30 - Assessment and plan (1) Chest pain Current Visit: Yes Status: Acute Assessment and plan: Patient continues with continual chest pain across her anterior chest. Troponin negative 2. Chest x-ray negative. Echocardiogram unremarkable with ejection fraction of 60-65%. 2 day stress test with low risk abnormality so cardiology was brought on board. They have started her on Imdur and we will observe her over the course of today and tomorrow. If her chest pain does not improve with Imdur, possible left heart catheter on Sunday. Patient is aware. She states that she feels tired and she has been educated on Imdur and instructed to change positions slowly. ITS Impressions Chest X-Ray 02/22/17 21:08 IMPRESSION: Clear lungs. D/ / David Higginbotham MD / David Higginbotham MD Interpreting Provider: David Higginbotham MD Echocardiogram impressions: Normal LV systolic function, LVEF 60-65%. Normal left ventricular diastolic function. Normal right ventricular size and function. No significant valvular dysfunction. Regadenosen nuclear 2 day impression: Small inferior apical defect that worsens with stress, cannot rule out mild ischemia. SDS 2. Pharmacologic ECG was nondiagnostic for ischemia. Patient had no chest pain with stress. Normal hemodynamic response. No arrhythmias noted with stress. LV is not dilated. Gated ejection fraction was 61%. No diagnostic high risk features on the stress test. Qualifiers: Chest pain type: precordial pain Qualified Code(s): R07.2 - Precordial pain (2) Abnormal stress test Current Visit: Yes Status: Acute (3) Suicidal ideation Current Visit: No Status: Acute Assessment and plan: On the second day of her admission, patient stated that she started to hear auditory hallucinations telling her to kill herself and others. A sitter is placed at the bedside and she maintains on suicide precautions. She does continue to endorse suicidal ideations but then states "but unlikely to hurt myself they are just telling me to." She has frequent admissions down to our inpatient psychiatric unit, psychiatry brought on board. Appreciate their recommendations. (4) Auditory hallucinations Current Visit: No Status: Chronic (5) CAD (coronary artery disease) Current Visit: No Status: Chronic Qualifiers: Coronary Disease-Associated Artery/Lesion type: quechan artery [place] vs. transplanted heart: unspecified whether quechan or transplanted heart Associated angina: angina presence unspecified Qualified Code(s): I25.10 - Atherosclerotic heart disease of quechan coronary artery without angina pectoris (6) COPD (chronic obstructive pulmonary disease) Current Visit: No Status: Chronic Assessment and plan: No acute exacerbation. Patient denies shortness of breath above her norm. She is on room air. Qualifiers: COPD type: chronic bronchitis Qualified Code(s): J41.0 - Simple chronic bronchitis (7) HTN (hypertension) Current Visit: No Status: Chronic Assessment and plan: Controlled, we will continue to trend and adjust medications as indicated. Qualifiers: Hypertension type: essential hypertension Qualified Code(s): I10 - Essential (primary) hypertension (8) DM2 (diabetes mellitus, type 2) Current Visit: No Status: Chronic Assessment and plan: Controlled with an A1c of 5.0%. Glucose is controlled, no indication for insulin at this time Qualifiers: Diabetes mellitus complication status: without complication Diabetes mellitus nursing home insulin use: without manager intermediate use Qualified Code(s): E11.9 - Type 2 diabetes mellitus without complications (9) JAY on CPAP Current Visit: No Status: Chronic (10) Mixed dyslipidemia Current Visit: No Status: Chronic Assessment and plan: Lipid panel normal. On niacin and statin at home (11) Developmental disability Current Visit: No Status: Chronic Assessment and plan: Patient is delayed but she is able to engage in regular conversation able to provide her health history. She is from [facility] (12) Depression Current Visit: No Status: Chronic (13) Schizoaffective disorder, bipolar type Current Visit: No Status: Chronic Assessment and plan: Mood and affect stable during conversation however she does endorse auditory hallucinations telling her to kill herself and others. Sitter will remain at the bedside. Psychiatry consultation. (14) DVT prophylaxis Current Visit: Yes Status: Acute Assessment and plan: Subcutaneous Lovenox (15) Morbid obesity with BMI of 50.0-59.9, adult Current Visit: Yes Status: Chronic - Subjective Interval history: Patient seen and examined. On examination, patient resting on her side in bed. Patient is alert and oriented 3. She is still complaining of chest pain unchanged from yesterday. She states she is eating well. She states that she feels very tired. He states that she is still hearing voices telling her to kill herself and others. - Constitutional Vitals: Temp Pulse Resp BP Pulse Ox 98.3 F 54 16 109/66 97 02/24/17 15:28 02/24/17 15:28 02/24/17 15:28 02/24/17 15:28 02/24/17 15:28 General appearance: Present: A&O X 3, morbidly obese, pleasant, no acute distress, answers questions appropriately - Head Head exam: Present: atraumatic, normocephalic - Eye Eye exam: Present: PERRL, conjuntiva pink, sclera anicteric Pupils: Present: PERRL - Neck Neck exam general surgery: Present: supple, trachea midline. Absent: lymphadenopathy - Respiratory Respiratory exam: Present: decreased breath sounds. Absent: accessory muscle use, rales, respiratory distress, rhonchi, wheezes - Cardiovascular Cardiovascular exam: Present: RRR, +S1, +S2. Absent: diastolic murmur, gallop, rubs, systolic murmur - GI/Abdominal GI/Abdominal exam: Present: distended, normal bowel sounds, soft, no peritoneal signs. Absent: tenderness - Extremities Exam Extremities exam: Present: pedal edema, warm, radial pulses palpable and symetrical. Absent: calf tenderness, cyanotic - Neurological Exam Neurological exam: Present: alert, CN II-XII intact, normal gait, oriented X3, no focal deficits, strengths equal and symetr throughout. Absent: pronater drift, facial droop, speech deficit - Psychiatric Psychiatric exam: Present: homicidal ideation, suicidal ideation - Expanded Psychiatric Exam Focused psych exam: Present: delusional - Skin Skin exam: Present: dry, intact, pallor, warm Internal Medicine: Result - Labs CBC & Chem 7: 02/23/17 04:04 02/23/17 10:34 Labs: Liver Function 02/24/17 Range/Units 05:01 Total Bilirubin 0.3 (0.2-1.2) mg/dL Direct Bilirubin 0.1 (0.0-0.5) mg/dL AST 12 (5-34) Units/L ALT 10 (0-55) Units/L Alkaline Phosphatase 127 H (38-126) Units/L Albumin 3.2 L (3.5-5.0) g/dL - ABG Interpretation ABG results: PT/INR, D-dimer PT 11.5 Seconds (9.4-12.1) 02/22/17 21:28 D-Dimer 315 ng/mLFEU (0-500) 02/23/17 04:04 Consult Discharge Plan - Plan Referrals: Kamilah Ochoa MD [Primary Care Provider] -
[2017-02-24] MEDS: *HR* OxyCODONE Immed Rel 5 MG TABLET PO PRN (18:33)
[2017-02-24] MEDS: clonazePAM 1 MG TABLET PO SCH (20:54)
[2017-02-24] MEDS: Ziprasidone 20 MG CAPSULE PO SCH (21:09)
[2017-02-24] MEDS: Acetaminophen 325 MG TABLET PO PRN (22:37)
[2017-02-25] MEDS: *HR* Morphine 2 MG/ML SYRINGE IVP PRN ×3 (02:48→15:41)
[2017-02-25] MEDS: *HR* Enoxaparin 40 MG/0.4 ML SYRINGE SQ SCH (06:01)
[2017-02-25] MEDS: Budesonide/Formoterol 160/4.5 MDI IH SCH ×2 (08:22→21:14)
[2017-02-25] MEDS: OXcarbazepine 150 MG TABLET PO SCH (09:48)
[2017-02-25] MEDS: Aspirin 81 MG TAB.CHEW PO SCH (09:48)
[2017-02-25] MEDS: Niacin (24 HR) 500 MG TAB.ER.24H PO SCH ×2 (09:48→20:09)
[2017-02-25] MEDS: Isosorbide MONOnitrate (24 HR) 60 MG TAB.ER.24H PO SCH (09:48)
[2017-02-25] MEDS: Nystatin Cream 15 GM TUBE TP SCH ×2 (09:54→20:12)
--- NOTE | 2017-02-25 10:34 | Cardiology Progress Note ---
Date of Encounter: 02/25/17 Time of Encounter: 10:30 Assessment and Plan (1) Abnormal stress test Current Visit: Yes Status: Acute Low risk stress test. Gave her options of medical management versus LHC. She has started medical therapy but notes continued chest discomfort. I advised her that there were no high risk findings on stress but she wishes to proceed with LHC. Schedule for tomorrow. (2) Chest pain Current Visit: Yes Status: Acute Ruled out for [place], stress test possible inferoapical ischemia. Low risk stress but continued symptoms. Plan for LHC tomorrow. Qualifiers: Chest pain type: precordial pain Qualified Code(s): R07.2 - Precordial pain (3) Mental retardation Current Visit: No Status: Acute Patient states she signs her own papers, her brother who is present is MPOA in case of emergencies. Discussion w patient/family: The assessment and plan as outlined above was discussed with the patient and/or family members who expressed understanding and agreement. All questions were answered. Thank you for involving us in the care of your patient. Please call with any questions. Subjective Principal diagnosis: chest pain Interval history: Patient notes her chest pain has only mildly improved. She states she is not suicidal currently and is not hearing any voices. Objective Vital Signs, Last 4 Hours Temp Pulse Resp BP Pulse Ox 02/25/17 08:22 16 112/69 97 02/25/17 07:05 97.4 F L 56 18 112/69 100 General: Conversant HEENT: Atraumatic, Normocephaly Neck: No JVD Cardiac: Reg Rate and Rhythm Lungs: Normal Breath Sounds Neuro: Alert and responsive Abdomen: Soft Skin: No rashes noted on visualized skin Musculoskeletal: No Chest Wall Tenderness Extremities: No Edema Results 02/23/17 04:04 02/23/17 10:34 - Imaging and Cardiology Stress Test: report reviewed Consult Discharge Plan - Plan Referrals: Kamilah Ochoa MD [Primary Care Provider] -
[2017-02-25] MEDS: *HR* OxyCODONE Immed Rel 5 MG TABLET PO PRN ×2 (13:35→20:09)
--- NOTE | 2017-02-25 14:48 | Consult Note ---
Date of Encounter: 02/25/17 Time of Encounter: 12:10 Assessment & Recommendation (1) Schizoaffective disorder, bipolar type Current visit: Yes Status: Acute History of Present Illness Requesting Physician: Amparo Wynn History of present illness: Ms. Fam is a 56 year old female consulted today for commanding auditory Hallucination telling her to hurt herself. Patient has psychiatric dx of Schizoaffective disorder , bipolar . She is admitted for Chest pain and is going for cardiac cath tomorrow. Patient seen today , lives at [facility] and on disability . c/o chest pain , she is still having chest pains as per her. she states i am under lot of stress and therefore i think my voices are more, she does not want to hurt self . Sometimes I get mad and say that i do not mean it. no paranoia , no visual hallucinations, denies depression , apetie and sleep good. Ms. Fam is moderately obese W Female , at present has commanding hallucinations, but no plan to hurt self , she usually gets commanding hallucinations when its time close to her Haldol Deconate inj. she is due for one first week of february. she does not feel she needs to be in patient at psychiatric unit as she does not want to hurt self. she is aware of her procedure tomorrow and is ready for that. PLAN continue her geodon and paxil. get info from her out patient psychiatrist Dr Mueller , the due dates of her injection. at present not in immenent danger to self/others. CC: Amparo Wynn Past Med Surg Social Fam HX - Past Medical History Medical history: asthma, COPD, diabetes, hyperlipidemia, hypertension, other - Past Psychiatric History Psychiatric history: Reports: schizophrenia, previous psychiatric hospitalization Family psychiatric history: Yes Family History of Suicide: Attempted - Past Surgical History Surgical History: , cholecystectomy, other - Social History Smoking Status: Former smoker Smokeless Tobacco Status: No Alcohol use: none Drug use: none - Family History Mother Living Status: Still Living Hx Family Cardiac Disorders: Yes Hx Family Endocrine Disorder: Yes Medications & Allergies Aspirin 81 mg PO DAILY 08/09/16 [History] Atorvastatin Calcium 80 mg PO HS 08/09/16 [History] Docusate [Colace] 100 mg PO BID PRN 08/09/16 [History] Furosemide [Lasix] 40 mg PO BID 08/09/16 [History] Losartan Potassium [Cozaar] 50 mg PO DAILY 08/09/16 [History] Meclizine HCl [Verticalm] 25 mg PO Q8H PRN 08/09/16 [History] Metoprolol [Lopressor] 50 mg PO BID 08/09/16 [History] Niacin [Niacor] 500 mg PO BID 08/09/16 [History] Nitroglycerin [Nitrostat] 0.4 mg PO Q5M PRN 08/09/16 [History] OXcarbazepine [Oxcarbazepine] 600 mg PO QAM 08/09/16 [History] clonazePAM [Klonopin] 1 mg PO HS 08/09/16 [History] Acetaminophen [Tylenol] 325 mg PO Q6H PRN 09/25/16 [History] Albuterol Neb [Proventil Neb] 2.5 mg IH Q4H PRN 09/25/16 [History] Albuterol Sulfate [Ventolin Hfa] 2 puff IH Q4H PRN 09/25/16 [History] Amantadine [Symmetrel] 100 mg PO DAILY 09/25/16 [History] Eucalyptus/Menthol [Cough Drops] 1 each MM Q2H PRN 09/25/16 [History] Ferrous Sulfate 325 mg PO TID 09/25/16 [History] Haloperidol Decanoate [Haldol Decanoate 100] 100 mg IM Q3W 09/25/16 [History] Ibuprofen [Motrin] 400 mg PO Q8H PRN 09/25/16 [History] Loperamide HCl [Anti-Diarrheal] 2 mg PO 8XD PRN 09/25/16 [History] Polyethylene Glycol 3350 [MiraLAX Powder Bulk 17.9 Oz] 17 gm PO DAILY 09/25/16 [ History] Saline Nasal [place] [[place] Nasal [place]] 2 spray NS Q2H PRN 09/25/16 [History] Paroxetine [Paxil] 30 mg PO DAILY 10/27/16 [History] Budesonide/Formoterol 160/4.5 [Symbicort 160/4.5] 2 puff IH BIDRESP inhaler 11/13 [Rx] Ziprasidone [Geodon] 40 mg PO HS #30 capsule 10/31/16 [Rx] Calcium Carbonate/Vitamin D3 [Oyster Shell Calcium-Vit D Tab] 1 each PO DAILY [History] Hydrocortisone Rectal CRM [Proctosol-HC] 1 appl RC BID PRN 02/23/17 [History] Levothyroxine Sodium [Levo-T] 200 mcg PO DAILY 02/23/17 [History] Magnesium Hydroxide [Milk of Magnesia] 400 mg PO DAILY PRN 02/23/17 [History] Promethazine [Phenergan] 25 mg PO Q6HR PRN 02/23/17 [History] Allergies clemastine [From Tavist] Adverse Reaction (Verified 02/23/17 08:52) Unknown per ECF list milk Adverse Reaction (Verified 02/23/17 08:52) Unknown per ECF list pseudoephedrine [From Tavist] Adverse Reaction (Verified 02/23/17 08:52) Unknown per ECF list Review of Systems Psychiatric: Reports: auditory hallucinations Mental Status Exam Patient orientation: Yes Person, Yes Time, Yes Place Level of alertness: Alert Patient appearance: Obese Behavior: cooperative Psychomotor activity: Normal Eye contact: Maintains Eye Contact Mood description: Euthymic/stable Affect description: congruent with mood Speech pattern: Normal rate Speech volume: Normal Thought process: Logical Thought content: Yes Intact Perceptual disturbances: Yes Auditory hallucinations Attention span: Capable of Focused Attention Memory description: Grossly Intact Patient reliability: Reliable Historian Intelligence estimate: Average Judgment: Fair Insight: Full Results - Vital Signs Vital signs: Temp Pulse Resp BP Pulse Ox 98.1 F 50 18 100/60 96 02/25/17 11:00 02/25/17 11:00 02/25/17 11:00 02/25/17 11:00 02/25/17 11:00 - Labs Labs: Laboratory Last Values WBC 7.0 K/mcL (4.3-11.1) 02/23/17 04:04 RBC 3.90 M/mcL (3.82-4.97) 02/23/17 04:04 Hgb 11.6 g/dL (11.5-15.4) 02/23/17 04:04 Hct 36.7 % (35.3-44.9) 02/23/17 04:04 MCV 94.1 fL (83.0-100.0) 02/23/17 04:04 MCH 29.7 pg (28.0-33.3) 02/23/17 04:04 MCHC 31.6 g/dL (31.6-35.5) 02/23/17 04:04 RDW 14.8 % (11.5-14.5) H 02/23/17 04:04 Plt Count 211 K/mcL (140-400) 02/23/17 04:04 MPV 8.1 fL (9.4-12.4) L 02/23/17 04:04 Immature Gran % 0.2 % (0-4) 02/22/17 21:28 Seg Neutrophils % 56.4 % 02/22/17 21:28 Lymphocytes % 31.5 % 02/22/17 21:28 Monocytes % 7.9 % 02/22/17 21: Eosinophils % 3.5 % 02/22/17 21:28 Basophils % 0.5 % 02/22/17 21:28 Neutrophils # 5.2 K/mcL (1.6-8.9) 02/22/17 21:28 Lymphocytes # 2.9 K/mcL (0.6-4.6) 02/22/17 21:28 Monocytes # 0.7 K/mcL (0.0-1.3) 02/22/17 21:28 Eosinophils # 0.3 K/mcL (0.0-0.6) 02/22/17 21:28 Basophils # 0.1 K/mcL (0.0-0.2) 02/22/17 21:28 PT 11.5 Seconds (9.4-12.1) 02/22/17 21: INR 1.1 02/22/17 21:28 APTT 33.6 Seconds (26.0-36.0) 02/22/17 21:28 D-Dimer 315 ng/mLFEU (0-500) 02/23/17 04:04 Sodium 140 mEq/L (136-145) 02/23/17 10:34 Potassium 4.0 mEq/L (3.5-4.5) 02/23/17 10:34 Chloride 106 mEq/L (98-109) 02/23/17 10:34 Carbon Dioxide 26 mEq/L (19-29) 02/23/17 10:34 BUN 9 mg/dL (7-20) 02/23/17 10:34 Creatinine 0.70 mg/dL (0.57-1.11) 02/23/17 10:34 Est GFR ( Amer) > 60 (> 60) 02/23/17 10:34 Est GFR (Non-Af Amer) > 60 (> 60) 02/23/17 10:34 BUN/Creatinine Ratio 13 (6-26) 02/23/17 10:34 Glucose 99 mg/dL (70-99) 02/23/17 10:34 Est Mean Plasma Glucose 97 mg/dl 02/23/17 04:04 Hemoglobin A1c 5.0 % (-5.6) 02/23/17 04:04 Calculated Osmolality 289 (280-300) 02/23/17 10:34 Calcium 9.1 mg/dL (8.6-10.8) 02/23/17 10:34 Magnesium 2.3 mg/dL (1.6-2.6) 02/23/17 10:34 Total Bilirubin 0.3 mg/dL (0.2-1.2) 02/24/17 05:01 Direct Bilirubin 0.1 mg/dL (0.0-0.5) 02/24/17 05:01 Indirect Bilirubin 0.2 mg/dL (0.0-1.2) 02/24/17 05:01 AST 12 Units/L (5-34) 02/24/17 05:01 ALT 10 Units/L (0-55) 02/24/17 05:01 Alkaline Phosphatase 127 Units/L (38-126) H 02/24/17 05:01 Troponin I 0.00 ng/mL (0-0.03) 02/23/17 04:04 B-Natriuretic Peptide 62 pg/mL (0-100) 02/22/17 21:28 Serum Total Protein 6.6 g/dL (6.0-8.3) 02/24/17 05:01 Albumin 3.2 g/dL (3.5-5.0) L 02/24/17 05:01 Globulin 3.4 g/dL (2.4-3.5) 02/24/17 05:01 Albumin/Globulin Ratio 0.9 (1.1-2.2) L 02/24/17 05:01 Triglycerides 137 mg/dL (< 150) 02/23/17 10:34 Cholesterol 157 mg/dL (< 200) 02/23/17 10:34 LDL Cholesterol, Calc 68 mg/dL (0-99) 02/23/17 10:34 VLDL Cholesterol, Calc 27 mg/dL (< 31) 02/23/17 10:34 HDL Cholesterol 62 mg/dL (40-59) H 02/23/17 10:34 Cholesterol/HDL Ratio 2.5 (0-4.9) 02/23/17 10:34 Lipase 70 Units/L (8-78) 02/24/17 05:01 Urine Color Yellow (Yellow) 02/23/17 10:18 Urine Clarity Clear (Clear) 02/23/17 10:18 Urine pH 7.0 pH Units (5.0-8.0) 02/23/17 10:18 Ur Specific Rule 1.009 (1.010-1.025) L 02/23/17 10:18 Urine Protein Negative mg/dL (Neg-Trace) 02/23/17 10:18 Urine Glucose (UA) Normal mg/dL (Normal) 02/23/17 10:18 Urine Ketones Negative mg/dL (Negative) 02/23/17 10:18 Urine Blood Negative (Negative) 02/23/17 10:18 Urine Nitrite Negative (Negative) 02/23/17 10:18 Urine Bilirubin Negative (Negative) 02/23/17 10:18 Urine Urobilinogen Normal mg/dL (Normal) 02/23/17 10:18 Ur Leukocyte Esterase Trace (Negative) H 02/23/17 10:18 Urine Microscopic RBC 0-3 per hpf (0-3) 02/23/17 10:18 Urine Microscopic WBC 0-3 per hpf (0-3) 02/23/17 10:18 Ur Squamous Epith Cells Many per lpf (None-Few) H 02/23/17 10:18 Urine Bacteria None Seen per hpf (None-Few) 02/23/17 10:18 Hyaline Casts None Seen per lpf (None-Few) 02/23/17 10:18 Ur Culture Indicated? YES (NO) A 02/23/17 10:18 Urine Test Negative (Negative) 02/23/17 10:10 Specimen Rejected Hemolyzed 02/23/17 03:55 Consult Discharge Plan - Plan Referrals: Kamilah Ochoa MD [Primary Care Provider] -
--- NOTE | 2017-02-25 16:33 | Internal Med Progress Note ---
Date of Encounter: 02/25/17 Time of Encounter: 11:30 - Assessment and plan (1) Chest pain Current Visit: Yes Status: Acute Assessment and plan: Patient continues with continual chest pain across her anterior chest. Troponin negative 2. Chest x-ray negative. Echocardiogram unremarkable with ejection fraction of 60-65%. 2 day stress test with low risk abnormality so cardiology was brought on board. They started her on Imdur and we observed her overnight, but her pain remained unchanged. Plan is for a left heart catheter tomorrow. Patient is aware and denies concerns at this time. If left heart catheter negative, anticipate possible discharge tomorrow pending clinical outcomes. ITS Impressions Chest X-Ray 02/22/17 21:08 IMPRESSION: Clear lungs. D/ / David Higginbotham MD / David Higginbotham MD Interpreting Provider: David Higginbotham MD Echocardiogram impressions: Normal LV systolic function, LVEF 60-65%. Normal left ventricular diastolic function. Normal right ventricular size and function. No significant valvular dysfunction. Regadenosen nuclear 2 day impression: Small inferior apical defect that worsens with stress, cannot rule out mild ischemia. SDS 2. Pharmacologic ECG was nondiagnostic for ischemia. Patient had no chest pain with stress. Normal hemodynamic response. No arrhythmias noted with stress. LV is not dilated. Gated ejection fraction was 61%. No diagnostic high risk features on the stress test. Qualifiers: Chest pain type: precordial pain Qualified Code(s): R07.2 - Precordial pain (2) Abnormal stress test Current Visit: Yes Status: Acute (3) Suicidal ideation Current Visit: No Status: Resolved Assessment and plan: Patient stating she is no longer hearing voices and no longer homicidal or suicidal. Cleared per psychiatry. We will discontinue sitter. (4) Auditory hallucinations Current Visit: No Status: Resolved (5) CAD (coronary artery disease) Current Visit: No Status: Chronic Qualifiers: Coronary Disease-Associated Artery/Lesion type: [place] artery [place] vs. transplanted heart: unspecified whether [place] or transplanted heart Associated angina: angina presence unspecified Qualified Code(s): I25.10 - Atherosclerotic heart disease of [place] coronary artery without angina pectoris (6) COPD (chronic obstructive pulmonary disease) Current Visit: No Status: Chronic Assessment and plan: No acute exacerbation. Patient denies shortness of breath above her norm. She is on room air. Qualifiers: COPD type: chronic bronchitis Qualified Code(s): J41.0 - Simple chronic bronchitis (7) HTN (hypertension) Current Visit: No Status: Chronic Assessment and plan: Controlled, we will continue to trend and adjust medications as indicated. Qualifiers: Hypertension type: essential hypertension Qualified Code(s): I10 - Essential (primary) hypertension (8) DM2 (diabetes mellitus, type 2) Current Visit: No Status: Chronic Assessment and plan: Controlled with an A1c of 5.0%. Glucose is controlled, no indication for insulin at this time Qualifiers: Diabetes mellitus complication status: without complication Diabetes mellitus middle or intermediate school principal insulin use: without middle or intermediate school principal use Qualified Code(s): E11.9 - Type 2 diabetes mellitus without complications (9) JAY on CPAP Current Visit: No Status: Chronic (10) Mixed dyslipidemia Current Visit: No Status: Chronic Assessment and plan: Lipid panel normal. On niacin and statin at home (11) Developmental disability Current Visit: No Status: Chronic Assessment and plan: Patient is delayed but she is able to engage in regular conversation able to provide her health history. She is from [employer] (12) Depression Current Visit: No Status: Chronic (13) Schizoaffective disorder, bipolar type Current Visit: No Status: Chronic Assessment and plan: Mood and affect stable, patient stating her hallucinations have subsided at this time. (14) DVT prophylaxis Current Visit: Yes Status: Acute Assessment and plan: Subcutaneous Lovenox (15) Morbid obesity with BMI of 50.0-59.9, adult Current Visit: Yes Status: Chronic - Subjective Interval history: Patient seen and examined. On examination, patient resting on her side in bed. Patient is alert and oriented 3. She is still complaining of chest pain unchanged since admission. She states she is eating well. She states that she is no longer hearing voices telling her to kill herself and others. She denies any suicidal or homicidal ideations. Her brother is present at the bedside and stated, "I am her power of manager heavy equipment, and I can tell you first hand that she says things to get attention and to get what she wants. She can be very manipulative." - Constitutional Vitals: Temp Pulse Resp BP Pulse Ox 97.4 F L 48 16 101/64 95 02/25/17 15:21 02/25/17 15:21 02/25/17 15:21 02/25/17 15:21 02/25/17 15:21 General appearance: Present: A&O X 3, morbidly obese, pleasant, no acute distress, answers questions appropriately - Head Head exam: Present: atraumatic, normocephalic - Eye Eye exam: Present: PERRL, conjuntiva pink, sclera anicteric Pupils: Present: PERRL - Neck Neck exam general surgery: Present: supple, trachea midline. Absent: lymphadenopathy - Respiratory Respiratory exam: Present: decreased breath sounds. Absent: accessory muscle use, rales, respiratory distress, rhonchi, wheezes - Cardiovascular Cardiovascular exam: Present: RRR, +S1, +S2. Absent: diastolic murmur, gallop, rubs, systolic murmur - GI/Abdominal GI/Abdominal exam: Present: distended (morbidly obese), normal bowel sounds, soft, no peritoneal signs. Absent: tenderness - Extremities Exam Extremities exam: Present: pedal edema, warm, radial pulses palpable and symetrical. Absent: calf tenderness, cyanotic - Neurological Exam Neurological exam: Present: alert, CN II-XII intact, oriented X3, no focal deficits, strengths equal and symetr throughout. Absent: pronater drift, facial droop, speech deficit - Skin Skin exam: Present: dry, intact, pallor, warm Internal Medicine: Result - Labs CBC & Chem 7: 02/23/17 04:04 02/23/17 10:34 - ABG Interpretation ABG results: PT/INR, D-dimer PT 11.5 Seconds (9.4-12.1) 02/22/17 21:28 D-Dimer 315 ng/mLFEU (0-500) 02/23/17 04:04 Consult Discharge Plan - Plan Referrals: Kamilah Ochoa MD [Primary Care Provider] -
[2017-02-25] MEDS: clonazePAM 1 MG TABLET PO SCH (20:09)
[2017-02-25] MEDS: Ziprasidone 20 MG CAPSULE PO SCH (20:09)
[2017-02-26] MEDS: *HR* Enoxaparin 40 MG/0.4 ML SYRINGE SQ SCH (04:51)
[2017-02-26] MEDS: Niacin (24 HR) 500 MG TAB.ER.24H PO SCH ×2 (08:51→21:19)
[2017-02-26] MEDS: OXcarbazepine 150 MG TABLET PO SCH (08:51)
[2017-02-26] MEDS: Acetaminophen 325 MG TABLET PO PRN (08:51)
[2017-02-26] MEDS: Aspirin 81 MG TAB.CHEW PO SCH (08:51)
[2017-02-26] MEDS: Isosorbide MONOnitrate (24 HR) 60 MG TAB.ER.24H PO SCH (08:52)
[2017-02-26] MEDS: Budesonide/Formoterol 160/4.5 MDI IH SCH ×2 (10:38→20:38)
[2017-02-26] MEDS ORDERED: *HR* Heparin 10,000 UNIT/10 ML VIAL ONE (11:56)
[2017-02-26] MEDS ORDERED: Nitroglycerin 1,000 MCG/10 ML VIAL IV ONE (11:56)
[2017-02-26] MEDS ORDERED: 0.9 % Sodium Chloride 1,000 ML ONE ×2 (11:56→12:29)
[2017-02-26] MEDS ORDERED: Heparin 1,000 UNITS/500 mL NS 500 ML ONE (11:56)
[2017-02-26] MEDS ORDERED: *HR* Midazolam HCl 2 MG/2 ML VIAL ONE (12:05)
[2017-02-26] MEDS ORDERED: *HR* FentaNYL (PF) 100 MCG/2 ML VIAL ONE (12:05)
--- NOTE | 2017-02-26 12:41 | Pre-Sedation Evaluation ---
Pre-sedation evaluation - Pre-sedation checklist Date of procedure: 02/26/17 Procedure: heart cath Recent Vitals: Last Vital Signs Temp 98.3 F 02/26/17 11:36 Pulse 53 02/26/17 11:36 Resp 18 02/26/17 11:36 BP 103/61 02/26/17 11:36 Pulse Ox 97 02/26/17 11:36 H&P (including ROS) documented in medical record: Yes Previous reaction to sedatives/anesthetics: No Dietary Status: NPO after Midnight Dentition: poor dentition ASA Classification *see protocol: CLASS II-Mild systemic disease Plan of Care: Pt appropriate candidate for procedure/moderate/conscious sedation , Risks/benefits of procedure/sedation discussed w/ patient/family
[2017-02-26] MEDS ORDERED: *HR* Adenosine 6 MG/2 ML VIAL IVP ONE (13:02)
--- NOTE | 2017-02-26 13:22 | Event Note ---
Date of Encounter: 02/26/17 Time of Encounter: 13:20 - Cardiology Event Note Reviewed [facility] findings with Dr. Rankin--mild to moderate non-obstructive CAD, medical management recommended. Continue asa, statin, and betablocker. Agree with addition of long-acting nitrate, Imdur 60 mg daily. Risk factor modification emphasized including heart healthy diet, weight loss, and daily exercise. Cardiology will sign-off, please call with questions. Will facilitate outpatient follow-up with [facility] in 3-4 weeks. The patient was discussed and reviewed with Dr. Jeff Pinedo who agrees with plan as stated above.
[2017-02-26] MEDS ORDERED: Ondansetron 4 MG/2 ML VIAL IVP PRN (13:36)
--- NOTE | 2017-02-26 15:11 | Invasive Diagnostic Lab Proc ---
Name: Taylor Fam Date of Study: 02/26/2017 Date: 1960 Ht: 59.1in Medical Record#: [id number] Age: 56 Wt: 279.99lb Gender: Female BSA: 2.13 Order #: [id number] BMI: 56.44 Physicians Procedure Physician: Selvin Rankin MD, [facility] Referring MD: Referring MD: Staff Name Position Time In Tutu Alegria RT (R) Scrub 12:39 PM Monster Yin RN Sales Manager 12:39 PM Lidya Lawrence RN Sales Manager 12:39 PM Nessa Mueller RN Monitor 12:39 PM Dorothy Cornejo RN Monitor 12:39 PM Indications Indication Abnormal Test - Stress Procedures Performed Procedure L HRT ARTERY/VENTRICLE ANGIO IV Doppler BLD Flow 1st Vessel Pre-Procedure Checklist Informed consent is complete signed and on chart. H&P is on chart. ID band is on and ID verified with patient. Patient NPO for procedure The procedure was described for the patient and questions were answered. Blood Pressure: 128/69 ECG is on chart. Plan of Care Patient will tolerate the procedure without complications. Adequate level of comfort will be maintained. Hemodynamics will remain stable Patient will recover from procedure without complications. Respiratory function will be maintained. Cardiac rhythm will remain stable. Patient temperature will be maintained. Patient and/or family have verbalized understanding of the procedure. Patient Education Chief Complaint/Reason for Test: Cardiac Cath Developmental Category: Adult (18-64 years) Developmentally Appropriate for Age: Yes Learning Barriers: None Education Needs: Procedure Education Method: Verbal Information Taught: Cardiac Cath Educational Evaluation: Able to repeat information Intravenous Access Time IV Size Location DC'd Fluid/Drip Rate Units RN 12:33 PM 20g 1 1/4" Peripheral-Lock On Arrival Lt Arm 0.9NaCl ml/hr Allergies TAVIST D acetaminophen pseudoephedrine milk TAVIST Phenylpropanolamine clemastine Vital Signs Time BP (mmHg) HR (bpm) O2 Sat. RR (bpm) LOC 128 / 68 61 98 % 18 5 = Fully awake and oriented or at pre-proc level 12:45 PM / % 5 = Fully awake and oriented or at pre-proc level 12:46 PM / % 5 = Fully awake and oriented or at pre-proc level 01:01 PM / % 4 = Oriented but drowsy 12:45 PM 126 / 71 48 93 % 22 12:50 PM 126 / 72 50 86 % 16 12:54 PM 129 / 68 50 95 % 7 12:55 PM 119 / 66 50 97 % 8 01:00 PM 127 / 63 50 99 % 8 01:05 PM 124 / 69 56 99 % 10 01:10 PM 132 / 72 52 100 % 23 01:15 PM 131 / 74 55 100 % 13 01:20 PM 138 / 73 54 100 % 20 01:16 PM / % 4 = Oriented but drowsy 01:40 PM 124 / 69 50 97 % 18 5 = Fully awake and oriented or at pre-proc level 02:02 PM 112 / 67 53 100 % 14 5 = Fully awake and oriented or at pre-proc level 02:59 PM 105 / 72 56 100 % 14 5 = Fully awake and oriented or at pre-proc level Procedural Medications Time Medication Dose Units Method Given By 12:46 PM Oxygen 2 L/min nasal cannula Monster Yin RN 12:46 PM Versed 2 mg Intravenous Monster Yin RN 12:46 PM Fentanyl 50 mcg Intravenous Monster Yin RN 12:50 PM Oxygen 4 L/min nasal cannula Monster Yin RN 12:51 PM Oxygen 6 L/min Oxy Mask Monster Yin RN 12:52 PM Oxygen 10 L/min nasal cannula Monster Yin RN 12:53 PM Oxygen 8 L/min nasal cannula Monster Yin RN 12:55 PM Lidocaine 2% 20 ml Subcutaneous Selvin Rankin MD, FACC 12:58 PM Oxygen 6 L/min Oxy Mask Monster Yin RN 01:07 PM Heparin 4000 units Intravenous Monster Yin RN 01:12 PM Adenosine 200 mcg Intracoronary Selvin Rankin MD, FACC 01:13 PM Adenosine 200 mcg Intracoronary Selvin Rankin MD, FACC 01:14 PM Nitroglycerin 200 mcg Intracoronary Selvin Rankni MD 01:15 PM Adenosine 200 mcg Intracoronary Selvin Rankin MD, FACC ASA Classification: CLASS II- Mild systemic disease (i.e. well-controlled diabetes, hypertension, asthma, cigarette smoking) Malena Score Preprocedure Postprocedure Activity 2- Moves 4 extremities sustained head lift Activity 2- Moves 4 extremities sustained head lift Circulation 2- SBP +/= 20 points of pre-anesthetic level Circulation 2- SBP +/= 20 points of pre-anesthetic level Consciousness 2- Awake and alert oriented x 3 Consciousness 2- Awake and alert oriented x 3 O2 Saturation 2- Able to maintain O2 satruation of 92% on room air O2 Saturation 2- Able to maintain O2 satruation of 92% on room air Respiratory 2- Able to deep breathe and cough well Respiratory 2- Able to deep breathe and cough well Total Score 10 Total Score 10 Contrast Agent: Isovue Diagnostic Contrast: 89 ml Total Contrast: 89 ml Fluoro Dose: 423 mGy Activated Clotting Time Time Seconds to Clot 02:56 PM 156 Procedure Log Time Note Enter By 11:55 AM CathStat 12:39 PM Pt arrived to chemical processing laborer 2 at 12:38 ejohnson 12:39 PM Tutu Alegria RT (R) Position: Scrub Time in: 12:39 ejohnson 12:39 PM Monster Yin RN Position: Sales Manager Time in: 12:39 ejohnson 12:39 PM Lidya Lawrence RN Position: Sales Manager Time in: 12:39 ejohnson 12:39 PM Nessa Mueller RN Position: Monitor Time in: 12:39 ejohnson 12:39 PM Dorothy Cornejo RN Position: Monitor Time in: 12:39 ejohnson 12:39 PM Patient charges- Angio tray pack, Navilyst 3mm J, Pulse Oximetry and ACIST tubing and transducer ejohnson 12:39 PM Case Delayed No ejohnson 12:39 PM Hair removed from procedure site in procedure lab using clippers. Bilateral groin prepped with Chloraprep by Lidya Lawrence RN, safety strap applied then patient was draped. Skin intact. ejohnson 12:39 PM ASA Class CLASS II- Mild systemic disease (i.e. well-controlled diabetes, hypertension, asthma, cigarette smoking) ejohnson 12:39 PM Meet and greet completed ejohnson 12:39 PM Sign in performed according to hospital policy. ejohnson 12:39 PM Procedure start 12:39 ejohnson 12:45 PM Vitals capture started with the following parameters, Patient=Adult, Interval=5 min, Initial Bmuadwkc=306 mmHg, Deflation Rate=5 mmHg, Cuff placed on Left Arm 12:45 PM Time: 12:45 Patient comfortable and pain free: Yes ejohnson 12:45 PM HR=48 bpm, RFZS=108/71 mmhg, SpO2=93.0 %, Resp=22 B/min, Comment=SB 12:46 PM Time: 12:45LOC: 5 = Fully awake and oriented or at pre-proc level ejohnson 12:46 PM Time: 12:46 Oxygen on at 2 L/min per nasal cannula by Monster Yin RNconoman 12:46 PM Time: 12:46 Versed 2 mg Intravenous Given by Monster Yin RNconoman 12:46 PM Time: 12:46 Fentanyl 50 mcg Intravenous Given by Monster Yin RNconoman 12:46 PM Recorded ECG: HR=52 Condition=Condition 1 12:50 PM Time: 12:50 Oxygen on at 4 L/min per nasal cannula by Monster Yin RN 12:50 PM Pressure channel 1 zeroed. 12:50 PM HR=50 bpm, JSJW=210/72 mmhg, SpO2=86.0 %, Resp=16 B/min, Comment=SB 12:51 PM Time: 12:51 Oxygen on at 6 L/min per Oxy Mask by Monster Yin RNconoman 12:52 PM Time: 12:52 Oxygen on at 10 L/min per nasal cannula by Monster Yin RNconoman 12:53 PM Time: 12:53 Oxygen on at 8 L/min per nasal cannula by Monster Yin RNconoman 12:54 PM NIBP STAT measurement started. 12:54 PM HR=50 bpm, YJVM=862/68 mmhg, SpO2=95.0 %, Resp=7 B/min, Comment=SB 12:55 PM Time out performed according to hospital policy ejconson 12:55 PM HR=50 bpm, WURF=913/66 mmhg, SpO2=97.0 %, Resp=8 B/min, Comment=SB 12:55 PM Time: 12:55 20 ml Lidocaine 2% to right groin Subcutaneous Given by Selvin Rankin MD, [facility] 12:57 PM Access obtained by percutaneous puncture. 5Fr 10cm Terumo [place] L[place] sheath placed in right Femoral artery. [id number] ejconsfernanda 12:57 PM 5Fr FL 4 catheter inserted over the wire DNC ejohnson 12:58 PM Time: 12:58 Oxygen on at 6 L/min per Oxy Mask by Monster Yin RN ejohnson 12:59 PM LCA angiography performed in multiple views. ejohnson 12:59 PM Recorded Pressure: Ao, HR=51, Condition=Condition 1 (Aorta) Ao 119/91/104 01:00 PM Catheter removed ejohnson 01:00 PM HR=50 bpm, PSQC=783/63 mmhg, SpO2=99.0 %, Resp=8 B/min, Comment=SB 01:01 PM Time: 12:46LOC: 5 = Fully awake and oriented or at pre-proc level ejohnson 01:01 PM Time: 12:45 Patient comfortable and pain free: Yes ejohnson 01:01 PM 5Fr FR 4 catheter inserted over the wire DN ejohnson 01:01 PM RCA angiography performed in multiple views. ejohnson 01:02 PM Pressure channel 1 zero failed. 01:02 PM Pressure channel 1 zero failed. 01:02 PM Pressure channel 1 zeroed. 01:03 PM Lesion found in Proximal LAD. Pre Stenosis: 50 Pre ALFREDO Flow: 3: Complete and Brisk Flow/Perfusion ejohnson 01:03 PM Lesion found in Proximal LAD. Pre Stenosis: 70 Pre ALFREDO Flow: 3: Complete and Brisk Flow/Perfusion ejohnson 01:03 PM Recorded Pressure: Ao, HR=50, Condition=Condition 1 (Aorta) Ao 95/66/81 01:03 PM Coronary Dominance: right ejohnson 01:04 PM Lesion found in Mid RCA. Pre Stenosis: 40 Pre ALFREDO Flow: 3: Complete and Brisk Flow/Perfusion ejohnson 01:04 PM Lesion found in Distal RCA. Pre Stenosis: 50 Pre ALFREDO Flow: 3: Complete and Brisk Flow/Perfusion ejohnson 01:04 PM Catheter removed ejohnson 01:04 PM 5Fr Pigtail catheter inserted over the wire DN ejohnson 01:04 PM Catheter selectively placed in left ventricle ejohnson 01:05 PM Recorded Pressure: LV, HR=54, Condition=Condition 1 (Left Ventricle) LV 111/5/14 01:05 PM HR=56 bpm, RLUY=848/69 mmhg, SpO2=99.0 %, Resp=10 B/min 01:05 PM Recorded Pressure: LV, Ao, HR=56, Condition=Condition 1 (Left Ventricle) LV 103/0/13, (Aorta) Ao 107/41/80 01:06 PM Bolus angiogram of left Ventricle complete: 10 ml/sec for a total of 30 mls ejohnson 01:06 PM Catheter removed ejohnson 01:06 PM 6Fr EBU 3.5 Medtronic guide catheter was used to cannulate the PCI vessel successfully. reused? No ejohnson 01:06 PM Sheath exchanged for a 6 Fr 11 cm Cordis Mirtha sheath [id number] ejohnson 01:07 PM Time: 13:07 Heparin 4000 units Intravenous Given by Monster Yin RN ejohnson 01:08 PM Comet Wire Prestige advanced to target lesion. ejohnson 01:09 PM Pressure channel 1 zero failed. 01:09 PM Pressure channel 1 zeroed. 01:10 PM HR=52 bpm, FYTK=480/72 mmhg, PpD0=099.0 %, Resp=23 B/min, Comment=SB 01:12 PM Time: 13:12 Adenosine 200 mcg administered Intracoronary by Selvin Rankin MD, [facility] ejohnson 01:13 PM FFR Measurement: 0.88 ejohnson 01:13 PM Time: 13:13 Adenosine 400 mcg administered Intracoronary by Selvin Rankin MD, [facility] ejohnson 01:14 PM FFR Measurement: 0.88 ejohnson 01:14 PM Time: 13:14 Nitroglycerin 200 mcg Intracoronary Given by Selvin Rankin MD ejohnson 01:15 PM HR=55 bpm, DVNY=024/74 mmhg, RxA4=368.0 %, Resp=13 B/min, Comment=SB 01:16 PM Time: 13:15 Adenosine 200 mcg administered Intracoronary by Selvin Rankin MD, [facility] ejohnson 01:16 PM Time: 13:01 Patient comfortable and pain free: Yes ejohnson 01:16 PM Time: 13:01LOC: 4 = Oriented but drowsy ejohnson 01:16 PM FFR Measurement: 0.88 ejohnson 01:16 PM Flow Wire removed intact ejohnson 01:17 PM Guide catheter removed intact. ejohnson 01:18 PM Bolus angiogram of right Femoral complete: 4 ml/sec for a total of 7 mls ejohnson 01:20 PM Procedure completed at 13:20 ejohnson 01:20 PM Sign out completed: Radiation Dose 423.39 mGy Fluoro Time: 3.5 Isovue 370 - 200ml contrast 89 ml given by Selvin Rankin MD, [facility]. Complications: NoneCardiac Rehab Consult needed: NoConfirmed administered medications: Yes ejohnson 01:20 PM HR=54 bpm, EFHI=708/73 mmhg, UuT1=463 %, Resp=20 B/min 01:22 PM Isovue 370 - 200ml,1 Bottle(s) used. ejohnson 01:22 PM Post ECG Sinus Bradycardia ejohnson 01:22 PM Post Blood Pressure 138/73 ejohnson 01:22 PM 13:22 Post Pulses Bilateral DP & PT 1+ ejohnson 01:22 PM Information taught Cardiac Cath ejohnson 01:23 PM Education needs Plan of Care and Responsibilities of Patient in Care ejohnson 01:23 PM Learning barriers :None ejohnson 01:23 PM Education Methods Verbal ejohnson 01:23 PM Education evaluation Able to repeat information ejohnson 01:23 PM Site status No bleeding/hematoma - Rt Groin as reported by Tutu Alegria RT (R) at 13:23 ejohnson 01:23 PM Opsite applied ejohnson 01:24 PM Family placed in consult room. ejohnson 01:24 PM Complications: None ejohnson 01:26 PM Report given to Aminta LADD Pt taken to Holding room Room #3. 13:26 ejohnson 01:27 PM Right Coronary, Right Posterior Descending Arteries with Right Posterolateral and Acute Marginal branches with 50 % stenosis. ejohnson 01:27 PM Mid/Distal Left Anterior Descending Coronary Artery and diagonal branches with 60% stenosis. ejohnson 01:31 PM Time: 13:16LOC: 4 = Oriented but drowsy ejohnson 01:33 PM Report given to Yasmin LADD on 3B 13:33 ejohnson 02:33 PM At 14:56 the ACT was 156 seconds. [email or web address] 02:56 PM sheath pulled pressure held for 15 minutes hemostasis obtained dressing applied thenthorne 03:02 PM patient transported to [facility] via Mauricio Lucio RN and Carlie Nguyen RT. Updated report called to [facility] Complications Complication None Hemodynamics Pressures Site Systolic/A Wave Diastolic/V Wave Mean AO 119 91 104 AO 95 66 81 LV 111 5 14 LV 103 0 13 AO 107 41 80 Post Procedure Information Blood Pressure: 138/73 mmHg Rhythm: Sinus Bradycardia Post procedural instructions were given Site Checks Time Location Status Staff Sheath In? Note 01:23 PM Rt Groin No bleeding/hematoma Tutu Alegria RT (R) 01:40 PM Rt Groin No bleeding/ No Hematoma Aminta Delacruz RN Yes 02:00 PM Rt Groin No bleeding/ No Hematoma Mauricio Lucio RN 02:58 PM Rt Groin No bleeding/ No Hematoma Mauricio Lucio RN Pulses Time Site Pre-Procedure Post-Procedure Note 02/26/2017 12:33:00 PM Bilateral radial 2+ 02/26/2017 12:33:00 PM Bilateral DP 2+ 02/26/2017 12:33:00 PM Bilateral PT 1+ 1:22:00 PM Bilateral DP & PT 1+ 02/26/2017 1:40:00 PM Bilateral DP & PT 1+ 02/26/2017 2:02:00 PM Bilateral DP & PT 1+ Bilateral DP & PT 1+ Updated by Aminta Delacruz RN on 02/26/2017 3:04:04 PM Aminta Delacruz RN electronically signed on 02/26/2017 3:04:41 PM with status of Final
[2017-02-26] MEDS: *HR* HYDROcodone/Acet 5/325 mg TABLET PO PRN (15:39)
[2017-02-26] MEDS: Nystatin Cream 15 GM TUBE TP SCH ×2 (15:39→21:20)
--- NOTE | 2017-02-26 17:17 | Discharge Summary ---
Date of Encounter: 02/26/17 Time of Encounter: 16:30 - Discharge Diagnosis (1) Chest pain Priority: Primary Status: Ruled-out Comments: [facility] negative. Qualifiers: Chest pain type: precordial pain Qualified Code(s): R07.2 - Precordial pain (2) Abnormal stress test Priority: Primary Status: Ruled-out (3) Suicidal ideation Priority: Primary Status: Resolved (4) Auditory hallucinations Priority: Primary Status: Resolved (5) CAD (coronary artery disease) Priority: Secondary Status: Chronic Qualifiers: Coronary Disease-Associated Artery/Lesion type: [place] artery [place] vs. transplanted heart: unspecified whether [place] or transplanted heart Associated angina: angina presence unspecified Qualified Code(s): I25.10 - Atherosclerotic heart disease of [place] coronary artery without angina pectoris (6) COPD (chronic obstructive pulmonary disease) Priority: Secondary Status: Chronic Comments: no acute exacerbation Qualifiers: COPD type: chronic bronchitis Qualified Code(s): J41.0 - Simple chronic bronchitis (7) HTN (hypertension) Priority: Secondary Status: Chronic Comments: controlled; followup outpatient Qualifiers: Hypertension type: essential hypertension Qualified Code(s): I10 - Essential (primary) hypertension (8) DM2 (diabetes mellitus, type 2) Priority: Secondary Status: Chronic Comments: Controlled with an A1c of 5.0%. followup outpatient Qualifiers: Diabetes mellitus complication status: without complication Diabetes mellitus exterminator helper insulin use: without exterminator helper use Qualified Code(s): E11.9 - Type 2 diabetes mellitus without complications (9) JAY on CPAP Priority: Secondary Status: Chronic (10) Mixed dyslipidemia Priority: Secondary Status: Chronic Comments: Lipid panel normal. On niacin and statin at home (11) Developmental disability Priority: Secondary Status: Chronic Comments: able to answer questions appropriately. sending back to prison. patient stating she feels safe at her prison. (12) Depression Priority: Secondary Status: Chronic (13) Schizoaffective disorder, bipolar type Priority: Secondary Status: Chronic (14) DVT prophylaxis Priority: Primary Status: Acute Comments: Subcutaneous Lovenox while admitted (15) Morbid obesity with BMI of 50.0-59.9, adult Priority: Secondary Status: Chronic - Discharge Medications Prescriptions: Isosorbide MONOnitrate (24 HR) [Imdur] 60 mg PO DAILY #30 mg Nystatin Cream [Mycostatin Cream] 1 appl TP BID #1 / Home Medications: Aspirin 81 mg PO DAILY 08/09/16 [History] Atorvastatin Calcium 80 mg PO HS 08/09/16 [History] Docusate [Colace] 100 mg PO BID PRN 08/09/16 [History] Furosemide [Lasix] 40 mg PO BID 08/09/16 [History] Losartan Potassium [Cozaar] 50 mg PO DAILY 08/09/16 [History] Meclizine HCl [Verticalm] 25 mg PO Q8H PRN 08/09/16 [History] Metoprolol [Lopressor] 50 mg PO BID 08/09/16 [History] Niacin [Niacor] 500 mg PO BID 08/09/16 [History] Nitroglycerin [Nitrostat] 0.4 mg PO Q5M PRN 08/09/16 [History] OXcarbazepine [Oxcarbazepine] 600 mg PO QAM 08/09/16 [History] clonazePAM [Klonopin] 1 mg PO HS 08/09/16 [History] Acetaminophen [Tylenol] 325 mg PO Q6H PRN 09/25/16 [History] Albuterol Neb [Proventil Neb] 2.5 mg IH Q4H PRN 09/25/16 [History] Albuterol Sulfate [Ventolin Hfa] 2 puff IH Q4H PRN 09/25/16 [History] Amantadine [Symmetrel] 100 mg PO DAILY 09/25/16 [History] Eucalyptus/Menthol [Cough Drops] 1 each MM Q2H PRN 09/25/16 [History] Ferrous Sulfate 325 mg PO TID 09/25/16 [History] Haloperidol Decanoate [Haldol Decanoate 100] 100 mg IM Q3W 09/25/16 [History] Ibuprofen [Motrin] 400 mg PO Q8H PRN 09/25/16 [History] Loperamide HCl [Anti-Diarrheal] 2 mg PO 8XD PRN 09/25/16 [History] Polyethylene Glycol 3350 [MiraLAX Powder Bulk 17.9 Oz] 17 gm PO DAILY 09/25/16 [ History] Saline Nasal [place] [[place] Nasal [place]] 2 spray NS Q2H PRN 09/25/16 [History] Paroxetine [Paxil] 30 mg PO DAILY 10/27/16 [History] Budesonide/Formoterol 160/4.5 [Symbicort 160/4.5] 2 puff IH BIDRESP inhaler 11/13 [Rx] Ziprasidone [Geodon] 40 mg PO HS #30 capsule 10/31/16 [Rx] Calcium Carbonate/Vitamin D3 [[place] Calcium-Vit D Tab] 1 each PO DAILY [History] Hydrocortisone Rectal CRM [Proctosol-Hc] 1 appl RC BID PRN 02/23/17 [History] Levothyroxine Sodium [Levo-T] 200 mcg PO DAILY 02/23/17 [History] Magnesium Hydroxide [Milk of Magnesia] 400 mg PO DAILY PRN 02/23/17 [History] Promethazine [Phenergan] 25 mg PO Q6HR PRN 02/23/17 [History] Isosorbide MONOnitrate (24 HR) [Imdur] 60 mg PO DAILY #30 mg 02/26/17 [Rx] Nystatin Cream [Mycostatin Cream] 1 appl TP BID #1 / 02/26/17 [Rx] Allergies/Adverse Reactions: Allergies clemastine [From Tavist] Adverse Reaction (Verified 02/23/17 08:52) Unknown per ECF list milk Adverse Reaction (Verified 02/23/17 08:52) Unknown per ECF list pseudoephedrine [From Tavist] Adverse Reaction (Verified 02/23/17 08:52) Unknown per ECF list Procedures/tests Complete & Pending: Procedures Performed prior 72 hours Category Date Time Status Left Heart Cath [CL Cardiac Catheterization] [CL] Malted Milk Masher 02/25/17 10:31 Ordered Routine Date of admission: 02/22/17 23:52 Primary care physician: Kamilah Ochoa Consults: 02/23/17 10:39 Consult to Level Vial Curvature Gauger [CONS] Stat Reason for SW Consult: Discharge planning - pt currently from prison 02/24/17 17:05 Consult to Psychiatry [CONS] Routine Consulting Provider: Psychiatry Katherine Reason for Consult: here for CP. started to hear voices telling her to kill herself and others. Please eval and advise. May need heart cath sunday. She has hx of frequent 1A admissions Time Notified: 17:06 Call Completed: Yes Discharging clinician: Amparo Grace Anticipated date of discharge: 02/26/17 (back to [facility]) - Patient Status Disposition: Home, Self-Care Condition: Good Functional capacity at discharge: independent ambulation Overall status at discharge: patient is back to baseline - Discharge Instructions Follow Up With: Kamilah Ochoa MD [Primary Care Provider] - Cardiology [facility] [Provider Group] Additional Instructions: Follow-up with primary care provider within one to 2 weeks, follow-up with cardiology within 3-4 weeks - Diet and Activity Activity: increase activity as tolerated Diet: diabetic diet, low fat, low cholesterol, low salt diet Hospital course: Ms. Fam is a 56 year old female with past medical history of COPD, JAY, diabetes, hyperlipidemia, hypertension, bipolar disorder, schizophrenia, prior psychiatric hospitalizations, former tobacco abuse, morbid obesity BMI 56. Patient presented to the emergency department chief complaint of chest pain. Patient stating it started on the morning of presentation and is located substernally, sharp in nature, and without aggravating or alleviating factors. Patient denied diaphoresis, nausea, palpitations or shortness of breath. Workup in the emergency department unremarkable. Chest x-ray negative. Patient was admitted to the hospitalist service for further evaluation and management. Troponin negative 2. Echocardiogram unremarkable with ejection fraction of 60-65%. Patient had a 2 day stress test with low risk abnormality so cardiology was brought on board. They started her on Imdur and we observed her overnight, but her pain remained unchanged. We proceeded with a left heart catheter the next day that was unremarkable with mild to moderate nonobstructive CAD and did not require intervention. Cardiology recommended medical management with addition of Imdur to her regimen. She is already on an aspirin, statin, and beta marta. Of note, while waiting on the next part of her stress test, patient stated that she started to hear voices that were telling her to kill herself and others. She was placed on suicide precautions and a constant attendant was placed at her bedside. Psychiatry was brought on board and cleared the patient. The patient rescinded any ideations for suicide or for homicide. She stated that she was no longer hearing voices since she was taken off precautions. She denies shortness of breath above her norm throughout this admission. She tolerated a regular diet while admitted. For further investigation into her substernally located chest pain, abdominal labs were obtained which were all unremarkable including bilirubin, LFTs, lipase. She was discharged back to her prison in stable condition with close outpatient follow-up recommended. Of note, patient has a developmental disability and she continued to complain of chest pain even after her heart catheter. Acute cardiac, pulmonic, abdominal etiologies have all been ruled out and she is tolerating a regular diet while admitted. No indication for further workup. Her brother/POA was present while admitted and he felt as if she was "doing this for attention and to be manipulative." Of course, we ruled out acute etiologies with objective data as well. ITS Impressions Chest X-Ray 02/22/17 21:08 IMPRESSION: Clear lungs. D/ / David Higginbotham MD / David Higginbotham MD Interpreting Provider: David Higginbotham MD Echocardiogram impressions: Normal LV systolic function, LVEF 60-65%. Normal left ventricular diastolic function. Normal right ventricular size and function. No significant valvular dysfunction. Regadenosen nuclear 2 day impression: Small inferior apical defect that worsens with stress, cannot rule out mild ischemia. SDS 2. Pharmacologic ECG was nondiagnostic for ischemia. Patient had no chest pain with stress. Normal hemodynamic response. No arrhythmias noted with stress. LV is not dilated. Gated ejection fraction was 61%. No diagnostic high risk features on the stress test. - Time Spent with Patient Total time spent providing and/or coordinating discharge services: - Constitutional Vitals: Temp Pulse Resp BP Pulse Ox 98.3 F 51 16 128/70 98 02/26/17 15:37 02/26/17 15:55 02/26/17 15:55 02/26/17 15:55 02/26/17 15:55 General appearance: Present: A&O X 3, morbidly obese, pleasant, no acute distress, answers questions appropriately - Head Head exam: Present: atraumatic, normocephalic - Eye Eye exam: Present: PERRL, conjuntiva pink, sclera anicteric Pupils: Present: PERRL - Neck Neck exam general surgery: Present: supple, trachea midline. Absent: lymphadenopathy - Respiratory Respiratory exam: Present: decreased breath sounds (2/2 body habitus). Absent: accessory muscle use, rales, respiratory distress, rhonchi, wheezes - Cardiovascular Cardiovascular exam: Present: RRR, +S1, +S2. Absent: diastolic murmur, gallop, rubs, systolic murmur - GI/Abdominal GI/Abdominal exam: Present: normal bowel sounds, soft, no peritoneal signs. Absent: distended, tenderness - Extremities Exam Extremities exam: Present: pedal edema (Chronic), warm, radial pulses palpable and symetrical. Absent: calf tenderness, cyanotic - Neurological Exam Neurological exam: Present: alert, CN II-XII intact, oriented X3, no focal deficits, strengths equal and symetr throughout. Absent: pronater drift, facial droop, speech deficit - Psychiatric Psychiatric exam: Absent: homicidal ideation, suicidal ideation - Skin Skin exam: Present: dry, intact, normal color, warm
[2017-02-26] MEDS: clonazePAM 1 MG TABLET PO SCH (21:19)
[2017-02-26] MEDS: Ziprasidone 20 MG CAPSULE PO SCH (21:19)
[2017-02-27] MEDS: *HR* Enoxaparin 40 MG/0.4 ML SYRINGE SQ SCH (06:15)
[2017-02-27] MEDS: Budesonide/Formoterol 160/4.5 MDI IH SCH (08:26)
[2017-02-27] MEDS: OXcarbazepine 150 MG TABLET PO SCH (08:41)
[2017-02-27] MEDS: Isosorbide MONOnitrate (24 HR) 60 MG TAB.ER.24H PO SCH (08:41)
[2017-02-27] MEDS: Aspirin 81 MG TAB.CHEW PO SCH (08:42)
[2017-02-27] MEDS: Niacin (24 HR) 500 MG TAB.ER.24H PO SCH (08:42)
[2017-02-27] MEDS: Nystatin Cream 15 GM TUBE TP SCH (08:43)
[2017-02-27] MEDS: *HR* HYDROcodone/Acet 5/325 mg TABLET PO PRN (10:15)
[2017-02-27 10:33] VITALS: BP 129/69
--- NOTE | 2017-02-27 12:01 | Internal Med Progress Note ---
Date of Encounter: 02/27/17 Time of Encounter: 11:58 - Assessment and plan (1) Chest pain Current Visit: Yes Status: Ruled-out Assessment and plan: Negative troponin x 2 s/p LHC was unremarkable with mild to moderate nonobstructive CAD and did not require intervention cont ASA, Statin, Metoprolol, Inc Imdur to 60mg Reviewed and my [employer] Ms. Amparo Grace discharge summary and discharge medication reconciliation no changes needed. Medically stable to d/c back to residential today Qualifiers: Chest pain type: precordial pain Qualified Code(s): R07.2 - Precordial pain (2) Abnormal stress test Current Visit: Yes Status: Ruled-out (3) CAD (coronary artery disease) Current Visit: No Status: Chronic Assessment and plan: s.p LHC was unremarkable with mild to moderate nonobstructive CAD and did not require intervention. Qualifiers: Coronary Disease-Associated Artery/Lesion type: [place] artery [place] vs. transplanted heart: unspecified whether [place] or transplanted heart Associated angina: angina presence unspecified Qualified Code(s): I25.10 - Atherosclerotic heart disease of [place] coronary artery without angina pectoris (4) COPD (chronic obstructive pulmonary disease) Current Visit: No Status: Chronic Assessment and plan: No acute exacerbation. Patient denies shortness of breath above her norm. She is on room air. cont home Inhalers Qualifiers: COPD type: chronic bronchitis Qualified Code(s): J41.0 - Simple chronic bronchitis (5) HTN (hypertension) Current Visit: No Status: Chronic Assessment and plan: Controlled, with current medication regimen. Qualifiers: Hypertension type: essential hypertension Qualified Code(s): I10 - Essential (primary) hypertension (6) DM2 (diabetes mellitus, type 2) Current Visit: No Status: Chronic Assessment and plan: Controlled with an A1c of 5.0%. Glucose is controlled, no indication for insulin at this time Qualifiers: Diabetes mellitus complication status: without complication Diabetes mellitus mcfp insulin use: without long chain beamer use Qualified Code(s): E11.9 - Type 2 diabetes mellitus without complications (7) JAY on CPAP Current Visit: No Status: Chronic (8) Morbid obesity with BMI of 50.0-59.9, adult Current Visit: Yes Status: Chronic (9) Schizoaffective disorder, bipolar type Current Visit: Yes Status: Acute Assessment and plan: continue her regular home meds - Subjective Interval history: Ms. Fam is a 56 year old female with past medical history of COPD, JAY, diabetes, hyperlipidemia, hypertension, bipolar disorder, schizophrenia, prior psychiatric hospitalizations, former tobacco abuse, morbid obesity BMI 56. Patient presented to the emergency department chief complaint of chest pain. Pt had negative troponin, had mild abnormal stress test and pt still c/o chest pain for which she went for C yesterday, was unremarkable with mild to moderate nonobstructive CAD and did not require intervention. Since it was too late t was unable to go back to her residential y/d. No events happened over night. Pt denied any CP / SOB. Denied any Suicidal ideation. She is alert, awake and O x 3 - Constitutional Vitals: Temp Pulse Resp BP Pulse Ox 97.7 F 54 16 129/69 97 02/27/17 10:31 02/27/17 10:31 02/27/17 10:31 02/27/17 10:31 02/27/17 10:31 General appearance: Present: A&O X 3, morbidly obese, pleasant, no acute distress, answers questions appropriately - Neck Neck exam general surgery: Present: supple - Respiratory Respiratory exam: Present: decreased breath sounds. Absent: respiratory distress, rhonchi, wheezes - Cardiovascular Cardiovascular exam: Present: RRR, +S1, +S2. Absent: diastolic murmur, gallop, rubs, systolic murmur - GI/Abdominal GI/Abdominal exam: Present: distended, normal bowel sounds, soft. Absent: tenderness - Extremities Exam Extremities exam: Absent: calf tenderness, pedal edema, tenderness - Psychiatric Psychiatric exam: Present: anxious. Absent: suicidal ideation Internal Medicine: Result - Labs CBC & Chem 7: 02/23/17 04:04 02/23/17 10:34 - ABG Interpretation ABG results: PT/INR, D-dimer PT 11.5 Seconds (9.4-12.1) 02/22/17 21:28 D-Dimer 315 ng/mLFEU (0-500) 02/23/17 04:04 Consult Discharge Plan - Plan Additional Instructions: Follow-up with primary care provider within one to 2 weeks, follow-up with cardiology within 3-4 weeks Referrals: Cardiology Katherine [Provider Group] Kamilah Ochoa MD [Primary Care Provider] - Prescriptions: Isosorbide MONOnitrate (24 HR) [Imdur] 60 mg PO DAILY #30 mg Nystatin Cream [Mycostatin Cream] 1 appl TP BID #1 /
--- NOTE | 2017-02-28 15:33 | Invasive Diagnostic Lab ---
Name: Taylor Fam Date of Study: 02/26/2017 Date: 1960 Ht: 150.0 cm /59.1 in Medical Record#: [id number] Age: 56 Wt: 127. kg / 279.99 lb Account/Order#: [id number] Gender: Female BSA: 2.13 Order #: [id number] Fluoro Dose: 423 mGy BMI: 56.44 Procedure Physician: Selvin Rankin MD, FACC Referring MD: Referring MD: Procedures Performed: Transfemoral LEFT HEART CATH IV Doppler BLD Flow 1st Vessel Indications: Abnormal Test - Stress Impressions: Moderate atherosclerotic coronary artery disease by FFR The left ventricle is normal and has normal contractility EF 60% Recommendations: Optimal medical therapy of patient's disease. Aggressive risk factor modification. History/Risk Factors: CP COPD Asthma Obesity Bipolar Diabetes Hypertension Dyslipidemia Procedure Access obtained in the right Femoral artery by percutaneous puncture. FFR wire advanced past the LAD lesion and hyperemia induced with FFR value 0.88 Complications: None Contrast: Isovue 89ml Hemodynamics: Pressures Site Systolic/ A Wave Diastolic/ V Wave End Diastolic/ Mean HR AO 119 91 104 51 AO 95 66 81 50 LV 111 5 14 54 LV 103 0 13 59 AO 107 41 80 54 LV Ventriculography Ejection Method: LV Gram Ejection Fraction: 60% Wall Motion: ALBA Anterobasal Normal Anterolateral Normal Apical: Normal Inferoapical Normal Inferobasal Normal Coronary Dominance: right Lesion Findings/Interventions * Left Main Coronary Artery The LMCA is angiographically free of disease. * Left Anterior Descending There is a 50% stenosis in the Proximal LAD. The lesion has a ALFREDO flow of 3. There is a 60% stenosis in the mid LAD. The lesion has a ALFREDO flow of 3. FFR 0.88 * Circumflex The Circumflex is angiographically free of significant disease. The 1st Marginal is angiographically free of significant disease. * Right Coronary Artery There is a 40% stenosis in the Mid RCA. The lesion has a ALFREDO flow of 3. There is a 50% stenosis in the Distal RCA. The lesion has a ALFREDO flow of 3. Updated by Nessa Mueller RN on 02/26/2017 1:31:39 PM Selvin Rankin MD, FACC electronically signed on 02/28/2017 3:26:55 PM with status of Final
== END 2017-02-27 13:19 | disposition home or self-care (01) ==
LOC: EMEROO 21:05 → 3BNU 21:05
PROVIDERS: ADMIT Internal Medicine; ATTEND Nurse Practitioner Family

== ENCOUNTER 2019-05-08 06:31 | Inpatient (IN) ==
[2019-05-08] MEDS ORDERED: Gabapentin 300 MG CAPSULE PO ONE (07:08)
[2019-05-08] MEDS ORDERED: Acetaminophen IV 1,000 MG/100 ML INFUS..BTL IVPB ONE (07:08)
[2019-05-08] MEDS ORDERED: *HR* Labetalol 20 MG/4 ML SYRINGE IVP PRN (07:08)
[2019-05-08] MEDS ORDERED: *HR* FentaNYL (PF) 100 MCG/2 ML VIAL ONE ×2 (07:08→09:51)
[2019-05-08] MEDS ORDERED: Albuterol 2.5 MG/3 ML NEBULIZER IH PRN ×2 (07:08→07:22)
[2019-05-08] MEDS ORDERED: *HR* OxyCODONE Immed Rel 5 MG TABLET PO PRN (07:08)
[2019-05-08] MEDS ORDERED: *HR* Propofol 200 MG/20 ML VIAL IVP ONE (07:08)
[2019-05-08] MEDS ORDERED: Ondansetron 4 MG/2 ML VIAL IVP ONE (07:08)
[2019-05-08] MEDS ORDERED: *HR* Midazolam HCl 2 MG/2 ML VIAL ONE (07:08)
[2019-05-08] MEDS ORDERED: Ketorolac 30 MG/ML VIAL IVP ONE (07:08)
[2019-05-08] MEDS ORDERED: *HR* Promethazine 25 MG/ML VIAL IVP PRN (07:08)
[2019-05-08] MEDS ORDERED: Lidocaine -MPF 2% 2 ML VIAL ONE ×2 (07:14→07:32)
[2019-05-08] MEDS ORDERED: Ondansetron 4 MG/2 ML VIAL ONE (07:14)
[2019-05-08] MEDS ORDERED: *HR* Succinylcholine 200 MG/10 ML VIAL IVP ONE (07:14)
[2019-05-08] MEDS ORDERED: *HR* Rocuronium Bromide 50 MG/5 ML VIAL ONE ×2 (07:14→08:40)
[2019-05-08] MEDS ORDERED: Dexamethasone 4 MG/ML VIAL ONE (07:14)
[2019-05-08] MEDS ORDERED: Lidocaine HCL 4 ML Topical Solution (Laryng-O-Jet Kit Sterile Pak) TP ONE (07:20)
[2019-05-08] MEDS ORDERED: CeFAZolin Syr 2,000MG/20 ML 2,000 MG/20 ML SYRINGE IVPB ONE (07:22)
[2019-05-08] MEDS ORDERED: Ringers Solution, Lactated 1,000 ML IVC SCH (07:30)
[2019-05-08] MEDS ORDERED: EPHEDrine 50 MG/ML VIAL ONE (08:50)
[2019-05-08] MEDS ORDERED: Albumin Human 5% 25.0 GM/500 ML VIAL ONE (09:45)
[2019-05-08] MEDS: *HR* HYDROmorphone (PF) 1 MG/ML SYRINGE IVP PRN ×2 (10:45→11:03)
[2019-05-08] MEDS ORDERED: HALOPERIDOL DECANOATE 100 MG IM SCH (11:37)
[2019-05-08] MEDS ORDERED: Ondansetron 4 MG/2 ML VIAL IVP PRN (11:37)
[2019-05-08] MEDS: 0.9 % Sodium Chloride 1,000 ML IVC SCH (12:57)
[2019-05-08] MEDS: Ketorolac 15 MG/ML VIAL IVP SCH ×3 (12:57→23:20)
[2019-05-08] MEDS: Gabapentin 300 MG CAPSULE PO SCH ×2 (14:13→20:08)
[2019-05-08] MEDS: *HR* HYDROcodone/Acet 5/325 mg TABLET PO PRN ×2 (14:14→20:08)
[2019-05-08] MEDS: *HR* Heparin 5,000 UNIT/ML VIAL SQ SCH ×2 (14:14→20:07)
[2019-05-08] MEDS: Ipratropium/Albuterol Neb 3 ML IH SCH ×4 (15:38→22:44)
[2019-05-08] MEDS: Furosemide 40 MG TABLET PO SCH (17:31)
[2019-05-08] MEDS: clonazePAM 1 MG TABLET PO SCH (17:31)
[2019-05-08] MEDS: Budesonide/Formoterol 160/4.5 1 PUFF INH IH SCH (19:52)
[2019-05-08] MEDS: Sennosides/Docusate Sodium TABLET PO SCH (20:08)
[2019-05-09 01:27] LABS: Hematocrit 34.1 % (35.3-44.9); Hemoglobin 10.9 g/dL (11.5-15.4); Mean Corpuscular Hemoglobin 30.1 pg (28.0-33.3); Mean Corpuscular Volume 94.2 fL (83.0-100.0); Mean Platelet Volume 8.3 fL (9.4-12.4); Platelet Count 227 K/mcL (140-400); Red Blood Count 3.62 M/mcL (3.82-4.97); Red Cell Distribution Width 14.6 % (11.5-14.5); White Blood Count 14.2 K/mcL (4.3-11.1)
[2019-05-09 01:42] LABS: % Iron Saturation 23 % (15-50); BUN/Creatinine Ratio 16 (6-26); Blood Urea Nitrogen 12 mg/dL (6-20); Calcium 8.6 mg/dL (8.6-10.3); Carbon Dioxide 24 mEq/L (23-29); Chloride 102 mEq/L (98-107); Glucose 141 mg/dL (70-105); Iron 44 mcg/dL (50-170); Magnesium 1.9 mg/dL (1.6-2.6); Osmolality,Calculated 280 (280-300); Sodium 134 mEq/L (136-145); Transferrin 136 mg/dL (203-362); eGFR For African Americans > 60 (> 60); eGFR For Non-African Americans > 60 (> 60)
[2019-05-09] MEDS: 0.9 % Sodium Chloride 1,000 ML IVC SCH (01:45)
[2019-05-09] MEDS: *HR* HYDROcodone/Acet 5/325 mg TABLET PO PRN ×4 (02:13→16:16)
[2019-05-09] MEDS: Ipratropium/Albuterol Neb 3 ML IH SCH ×5 (03:54→19:56)
[2019-05-09] MEDS: Ketorolac 15 MG/ML VIAL IVP SCH ×4 (06:01→23:29)
[2019-05-09] MEDS: *HR* Heparin 5,000 UNIT/ML VIAL SQ SCH ×3 (06:03→20:10)
[2019-05-09] MEDS: Budesonide/Formoterol 160/4.5 1 PUFF INH IH SCH ×2 (07:22→19:57)
[2019-05-09] MEDS: Isosorbide MONOnitrate (24 HR) 60 MG TAB.ER.24H PO SCH (08:03)
[2019-05-09] MEDS: clonazePAM 1 MG TABLET PO SCH ×2 (08:03→17:48)
[2019-05-09] MEDS: Aspirin 81 MG TAB.CHEW PO SCH (08:03)
[2019-05-09] MEDS: Sennosides/Docusate Sodium TABLET PO SCH ×2 (08:03→20:09)
[2019-05-09] MEDS: Gabapentin 300 MG CAPSULE PO SCH ×3 (08:04→20:10)
[2019-05-09] MEDS: Furosemide 40 MG TABLET PO SCH ×2 (08:04→16:16)
[2019-05-09] MEDS ORDERED: Iron Sucrose Complex 400 MG in 0.9 % Sodium Chloride 250 ML IVPB ONE (08:52)
[2019-05-10] MEDS: Ipratropium/Albuterol Neb 3 ML IH SCH ×6 (00:30→20:23)
[2019-05-10 01:54] LABS: BUN/Creatinine Ratio 20 (6-26); Blood Urea Nitrogen 14 mg/dL (6-20); Calcium 8.8 mg/dL (8.6-10.3); Carbon Dioxide 27 mEq/L (23-29); Chloride 102 mEq/L (98-107); Glucose 135 mg/dL (70-105); Osmolality,Calculated 289 (280-300); Potassium 4.4 mEq/L (3.5-5.1); Sodium 138 mEq/L (136-145); eGFR For African Americans > 60 (> 60); eGFR For Non-African Americans > 60 (> 60)
[2019-05-10] MEDS: Ketorolac 15 MG/ML VIAL IVP SCH ×4 (05:03→23:58)
[2019-05-10] MEDS: *HR* Heparin 5,000 UNIT/ML VIAL SQ SCH ×3 (05:15→21:33)
[2019-05-10] MEDS: Budesonide/Formoterol 160/4.5 1 PUFF INH IH SCH ×2 (07:14→20:23)
[2019-05-10] MEDS: Furosemide 40 MG TABLET PO SCH ×2 (09:09→17:27)
[2019-05-10] MEDS: Sennosides/Docusate Sodium TABLET PO SCH ×2 (09:09→21:33)
[2019-05-10] MEDS: *HR* HYDROcodone/Acet 5/325 mg TABLET PO PRN ×2 (09:09→15:00)
[2019-05-10] MEDS: clonazePAM 1 MG TABLET PO SCH ×2 (09:09→17:27)
[2019-05-10] MEDS: Aspirin 81 MG TAB.CHEW PO SCH (09:09)
[2019-05-10] MEDS: Isosorbide MONOnitrate (24 HR) 60 MG TAB.ER.24H PO SCH (09:09)
[2019-05-10] MEDS: Gabapentin 300 MG CAPSULE PO SCH ×3 (09:09→21:33)
[2019-05-11] MEDS: Ipratropium/Albuterol Neb 3 ML IH SCH ×6 (00:24→22:14)
[2019-05-11] MEDS: Ketorolac 15 MG/ML VIAL IVP SCH ×3 (05:52→18:58)
[2019-05-11] MEDS: *HR* Heparin 5,000 UNIT/ML VIAL SQ SCH ×3 (05:52→20:23)
[2019-05-11] MEDS: Gabapentin 300 MG CAPSULE PO SCH ×3 (07:42→20:22)
[2019-05-11] MEDS: Furosemide 40 MG TABLET PO SCH ×2 (07:42→16:29)
[2019-05-11] MEDS: Sennosides/Docusate Sodium TABLET PO SCH ×2 (07:42→20:23)
[2019-05-11] MEDS: *HR* HYDROcodone/Acet 5/325 mg TABLET PO PRN ×2 (07:42→16:30)
[2019-05-11] MEDS: Aspirin 81 MG TAB.CHEW PO SCH (07:42)
[2019-05-11] MEDS: clonazePAM 1 MG TABLET PO SCH ×2 (07:42→18:58)
[2019-05-11] MEDS: Isosorbide MONOnitrate (24 HR) 60 MG TAB.ER.24H PO SCH (07:42)
[2019-05-11] MEDS: Budesonide/Formoterol 160/4.5 1 PUFF INH IH SCH ×2 (07:55→22:14)
[2019-05-11] MEDS ORDERED: Ipratropium/Albuterol Neb 3 ML IH SCH (09:45)
[2019-05-11] MEDS: MOM Conc 10 ML UD.LIQ PO SCH (11:12)
[2019-05-12] MEDS: Ketorolac 15 MG/ML VIAL IVP SCH ×5 (00:44→23:42)
[2019-05-12] MEDS: Ipratropium/Albuterol Neb 3 ML IH SCH ×4 (04:35→21:41)
[2019-05-12] MEDS: *HR* Heparin 5,000 UNIT/ML VIAL SQ SCH ×3 (06:04→21:20)
[2019-05-12] MEDS: Isosorbide MONOnitrate (24 HR) 60 MG TAB.ER.24H PO SCH (08:20)
[2019-05-12] MEDS: Furosemide 40 MG TABLET PO SCH ×2 (08:20→17:07)
[2019-05-12] MEDS: MOM Conc 10 ML UD.LIQ PO SCH (08:21)
[2019-05-12] MEDS: *HR* HYDROcodone/Acet 5/325 mg TABLET PO PRN ×2 (08:21→17:07)
[2019-05-12] MEDS: clonazePAM 1 MG TABLET PO SCH ×2 (08:21→17:07)
[2019-05-12] MEDS: Aspirin 81 MG TAB.CHEW PO SCH (08:21)
[2019-05-12] MEDS: Sennosides/Docusate Sodium TABLET PO SCH ×2 (08:21→21:20)
[2019-05-12] MEDS: Gabapentin 300 MG CAPSULE PO SCH ×3 (08:21→21:20)
[2019-05-12] MEDS: Budesonide/Formoterol 160/4.5 1 PUFF INH IH SCH ×2 (10:43→21:41)
[2019-05-13] MEDS: *HR* HYDROcodone/Acet 5/325 mg TABLET PO PRN ×2 (01:38→08:24)
[2019-05-13] MEDS: Ipratropium/Albuterol Neb 3 ML IH SCH ×3 (03:31→15:29)
[2019-05-13] MEDS: Ketorolac 15 MG/ML VIAL IVP SCH ×2 (05:07→11:15)
[2019-05-13] MEDS: *HR* Heparin 5,000 UNIT/ML VIAL SQ SCH ×2 (05:07→15:02)
[2019-05-13] MEDS: Gabapentin 300 MG CAPSULE PO SCH ×2 (08:24→15:02)
[2019-05-13] MEDS: Aspirin 81 MG TAB.CHEW PO SCH (08:24)
[2019-05-13] MEDS: MOM Conc 10 ML UD.LIQ PO SCH (08:24)
[2019-05-13] MEDS: clonazePAM 1 MG TABLET PO SCH (08:24)
[2019-05-13] MEDS: Sennosides/Docusate Sodium TABLET PO SCH (08:24)
[2019-05-13] MEDS: Furosemide 40 MG TABLET PO SCH (08:24)
[2019-05-13] MEDS: Isosorbide MONOnitrate (24 HR) 60 MG TAB.ER.24H PO SCH (08:24)
[2019-05-13] MEDS: Budesonide/Formoterol 160/4.5 1 PUFF INH IH SCH (10:51)
[2019-05-13 11:18] VITALS: BP 152/94
== END 2019-05-13 16:04 | disposition home or self-care (01) | DRG 120 ==
LOC: SAMDAY 06:31 → 2NNU 11:35
PROVIDERS: ADMIT Thoracic Surgery (Cardiothoracic Vascular Surgery); ATTEND Thoracic Surgery (Cardiothoracic Vascular Surgery)

== ENCOUNTER 2021-03-16 21:55 | Observation (INO) ==
[2021-03-16] MEDS ORDERED: Isovue-370 500 ML BOTTLE IVP ONE (22:30)
[2021-03-16] MEDS ORDERED: Famotidine 20 MG/2 ML VIAL IVP ONE (22:32)
[2021-03-16 23:20] LABS: Basophils % 0.4 %; Eosinophils # 0.3 K/mcL (0.0-0.6); Eosinophils % 2.8 %; Hematocrit 37.1 % (35.3-44.9); Hemoglobin 11.8 g/dL (11.5-15.4); Immature Granulocytes % 0.3 % (0-4); Lymphocytes # 2.5 K/mcL (0.6-4.6); Lymphocytes % 27.9 %; Mean Corpuscular HGB Conc 31.8 g/dL (31.6-35.5); Mean Corpuscular Hemoglobin 27.6 pg (28.0-33.3); Mean Corpuscular Volume 86.7 fL (83.0-100.0); Mean Platelet Volume 8.1 fL (9.4-12.4); Monocytes # 0.7 K/mcL (0.0-1.3); Monocytes % 7.7 %; Neutrophils # 5.5 K/mcL (1.6-8.9); Platelet Count 220 K/mcL (140-400); Red Blood Count 4.28 M/mcL (3.82-4.97); Red Cell Distribution Width 15.7 % (11.5-14.5); Segmented Neutrophils % 60.9 %; White Blood Count 9.1 K/mcL (4.3-11.1)
[2021-03-16 23:23] LABS: Amorphous Sediment,Urine Few per hpf (None-Few); Bacteria,Urine Moderate per hpf (None-Few); Bilirubin,Urine Negative (Negative); Blood,Urine Small (Negative); Clarity,Urine Turbid (Clear); Color,Urine Yellow (Yellow); Glucose,Urine (UA) Normal (Normal); Ketones,Urine Negative (Negative); Leukocyte Esterase,Urine Small (Negative); Mucus,Urine Few per lpf (None-Few); Nitrite,Urine Negative (Negative); PH,Urine 6.5 pH Units (5.0-8.0); Protein,Urine Negative (Neg-Trace); Specific Gravity,Urine 1.008 (1.010-1.025); Squamous Epithelial Cell,Urine Few per hpf (None-Few); Urobilinogen,Urine Normal (Normal)
[2021-03-16 23:29] LABS: Amphetamine Screen,Urine Negative ng/mL (Cutoff=1000); Barbiturate Screen,Urine Negative ng/mL (Cutoff=200); Benzodiazepines Screen,Urine Negative ng/mL (Cutoff=200); Cannabinoid Screen,Urine Negative ng/mL (Cutoff = 50); Cocaine Screen,Urine Negative ng/mL (Cutoff= 300); Opiate Screen,Urine Negative ng/mL (Cutoff=300); Phencyclidine Screen,Urine Negative ng/mL (Cutoff=25)
[2021-03-16 23:39] LABS: Acetaminophen < 10 mcg/mL (10-20); Ethanol < 10 mg/dL (Less than 10); Salicylate < 2.5 mg/dL (15.0-30.0)
[2021-03-16 23:40] LABS: Alanine Aminotransferase 13 Units/L (7-52); Albumin 3.7 g/dL (3.5-5.7); Albumin/Globulin Ratio 1.4 (1.1-2.2); Alkaline Phosphatase 124 Units/L (34-104); Aspartate Amino Transferase 12 Units/L (13-39); BUN/Creatinine Ratio 16 (6-26); Bilirubin,Direct 0.1 mg/dL (0.0-0.2); Bilirubin,Indirect 0.2 mg/dL (0.0-1.0); Bilirubin,Total 0.3 mg/dL (0.3-1.0); Blood Urea Nitrogen 11 mg/dL (6-20); Calcium 9.2 mg/dL (8.6-10.3); Carbon Dioxide 26 mEq/L (23-29); Chloride 106 mEq/L (98-107); Globulin 2.7 g/dL (2.4-3.5); Glucose 103 mg/dL (70-105); Osmolality,Calculated 288 (280-300); Potassium 3.9 mEq/L (3.5-5.1); Sodium 139 mEq/L (136-145); Total Protein 6.4 g/dL (6.4-8.9); eGFR For African Americans > 60 (> 60); eGFR For Non-African Americans > 60 (> 60)
[2021-03-17] MEDS ORDERED: cefTRIAXone 1,000 MG in 0.9 % Sodium Chloride Mini Bag 100 ML IVPB ONE (00:20)
[2021-03-17 02:57] LABS: Lipase 25 Units/L (11-82)
[2021-03-17] MEDS ORDERED: Isovue-370 500 ML BOTTLE IVP ONE ×2 (05:22→14:36)
[2021-03-17] MEDS ORDERED: Naloxone 0.4 MG/ML INJ IVP PRN (12:17)
[2021-03-17] MEDS ORDERED: Ondansetron 4 MG/2 ML VIAL IVP PRN (12:17)
[2021-03-17] MEDS ORDERED: 0.9 % Sodium Chloride 1,000 ML IVC SCH (12:30)
[2021-03-17] MEDS: Pantoprazole 40 MG VIAL IVP SCH (14:20)
[2021-03-17] MEDS: Lactobacillus 1 EACH CAP.SPRINK PO SCH (14:21)
[2021-03-17] MEDS: cefTRIAXone 1,000 MG in Water for inj. (sterile) 10 ML IVP SCH (14:21)
[2021-03-17] MEDS: *HR* Heparin 5,000 UNIT/ML VIAL SQ SCH (18:01)
[2021-03-18 05:25] LABS: Basophils % 0.6 %; Eosinophils # 0.2 K/mcL (0.0-0.6); Eosinophils % 3.4 %; Hematocrit 42.8 % (35.3-44.9); Immature Granulocytes % 0.3 % (0-4); Lymphocytes # 1.6 K/mcL (0.6-4.6); Lymphocytes % 25.8 %; Mean Corpuscular HGB Conc 31.5 g/dL (31.6-35.5); Mean Corpuscular Hemoglobin 27.8 pg (28.0-33.3); Mean Corpuscular Volume 88.1 fL (83.0-100.0); Mean Platelet Volume 8.2 fL (9.4-12.4); Monocytes # 0.5 K/mcL (0.0-1.3); Monocytes % 7.7 %; Neutrophils # 3.9 K/mcL (1.6-8.9); Platelet Count 230 K/mcL (140-400); Red Blood Count 4.86 M/mcL (3.82-4.97); Red Cell Distribution Width 15.8 % (11.5-14.5); Segmented Neutrophils % 62.2 %; White Blood Count 6.2 K/mcL (4.3-11.1)
[2021-03-18 05:30] LABS: Hemoglobin 13.5 g/dL (11.5-15.4)
[2021-03-18 05:42] LABS: BUN/Creatinine Ratio 9 (6-26); Blood Urea Nitrogen 6 mg/dL (6-20); Calcium 9.4 mg/dL (8.6-10.3); Carbon Dioxide 25 mEq/L (23-29); Chloride 105 mEq/L (98-107); Glucose 95 mg/dL (70-105); Osmolality,Calculated 283 (280-300); Potassium 3.9 mEq/L (3.5-5.1); Sodium 138 mEq/L (136-145); eGFR For African Americans > 60 (> 60); eGFR For Non-African Americans > 60 (> 60)
[2021-03-18] MEDS: *HR* Heparin 5,000 UNIT/ML VIAL SQ SCH ×2 (06:05→15:48)
[2021-03-18 07:15] VITALS: BP 116/72; PULSE 64; TEMP 98.4
[2021-03-18] MEDS ORDERED: hydrOXYzine pamoate 25 MG CAPSULE PO PRN (08:44)
[2021-03-18] MEDS ORDERED: PARoxetine 30 MG TABLET PO SCH (09:00)
[2021-03-18] MEDS ORDERED: Aspirin 81 MG TAB.CHEW PO SCH (09:00)
[2021-03-18] MEDS ORDERED: lamoTRIgine 25 MG TABLET PO SCH (09:00)
[2021-03-18] MEDS ORDERED: Isosorbide MONOnitrate (24 HR) 60 MG TAB.ER.24H PO SCH (09:00)
[2021-03-18] MEDS ORDERED: Azelastine 0.1% Nasal Spray 30 ML BOTTLE NS SCH (09:00)
[2021-03-18] MEDS: Pantoprazole 40 MG VIAL IVP SCH (09:12)
[2021-03-18] MEDS: Lactobacillus 1 EACH CAP.SPRINK PO SCH (09:12)
[2021-03-18] MEDS: Ipratropium/Albuterol Neb 3 ML IH SCH ×2 (09:46→16:23)
[2021-03-18] MEDS ORDERED: Budesonide/Formoterol 160/4.5 1 PUFF INH IH SCH (10:00)
[2021-03-18 10:27] VITALS: O2SAT 98
[2021-03-18] MEDS: cefTRIAXone 1,000 MG in Water for inj. (sterile) 10 ML IVP SCH (13:26)
== END 2021-03-18 19:20 ==
LOC: EMEROOARM 21:55 → 2ANU 21:55 → SUATTDRO 03-17 11:44 → 2ANU 03-17 13:12
PROVIDERS: ADMIT General Practice; ATTEND Internal Medicine